=== PATIENT | female | born 1960 | race Caucasian/White ===

== ENCOUNTER 2016-08-15 19:23 | Emergency (ER) | payer OTHER ==
[~2016-08-15] VITALS: Ht 157.5 cm; Wt 83.9 kg
[~2016-08-15 19:23] MED LIST: EPIPEN0.3 MG/0.1 IM; PREDNISONE10 M2 PO; PROBIOTIC1 EACH PO
--- NOTE | 2016-08-15 19:40 | ED CARDIAC/CP/PALPITATIONS ---
History of Present Illness General Chief Complaint: Chest Pain Stated Complaint: PT IS HAVING CHEST PAIN ,HEART IS RACING Source: patient Exam Limitations: no limitations Vital Signs & Intake/Output Vital Signs & Intake/Output Vital Signs Date Time Temp Pulse Resp B/P Pulse O2 O2 Flow FiO2 Ox Delivery Rate 08/153 97.1 74 16 86/68 98 Room Air 08/15 2216 77 16 97/67 97 Room Air 08/159 78 107/60 08/155 80 165/76 08/15 2050 80 16 165/76 08/15 2014 Room Air 08/15 1944 97.9 96 20 104/68 97 Room Air Allergies Coded Allergies: Fish Containing Products (Severe, HIVES AND THROAT SWELLING 08/15/16) Penicillins (Intermediate, HIVES 08/15/16) codeine (Intermediate, HIVES 08/15/16) shellfish derived (HIVES AND THROAT SWELLING 08/15/16) Reconcile Medications Clobetasol Propionate 0.05 % CREAM..G. 1 RAQUEL TOP BID HANDS (Reported) apply to affected area(s) Epinephrine (Epipen 2-Francisco) 0.3 MG/0.3 ML AUTO.INJCT 0.3 MG IM AD PRN ALLERGIC REACTION (Reported) Omeprazole 40 MG CAPSULE. 1 CAP PO DAILY GI (Reported) Triage Nurses Notes Reviewed? yes Onset: Gradual Duration: hour(s): Timing: recent history Location: central Radiation: no radiation Activities at Onset: none Prior Chest Pain/Card Workup: patient with similar symptoms on 2 other occasions Nitro Today/Relief: no nitro taken today Aspirin Today: 325 mg x 1, provided at home Associated Symptoms: patient felt flushing and slight dizziness HPI: 56-year-old woman in prior good health presents with palpitations, chest pressure, mild dizziness, flushing, rash on her chest intermittently since 9:00 this morning. She states that she sometimes feels her hands and feet become cold and numb. She notes that she had 2 similar episodes previously which self resolved. She notes that at its worse, her discomfort was 5 out of 10. Upon arrival to the emergency department, "it's basically gone." Past History Travel History Traveled to [place] past 21 day No Medical History Any Pertinent Medical History? 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 No Review of Systems Review of Systems Constitutional: Reports: no symptoms. EENTM: Reports: no symptoms. Respiratory: Reports: no symptoms. Cardiovascular: Reports: no symptoms. GI: Reports: no symptoms. Genitourinary: Reports: no symptoms. Musculoskeletal: Reports: no symptoms. Skin: Reports: no symptoms. Neurological/Psychological: Reports: no symptoms. Hematologic/Endocrine: Reports: no symptoms. Immunologic/Allergic: Reports: no symptoms. All Other Systems: Reviewed and Negative Physical Exam Physical Exam General Appearance: well developed/nourished, mild distress Head: atraumatic, normal appearance Eyes: Bilateral: normal appearance. Ears, Nose, Throat: normal pharynx, normal ENT inspection Neck: normal inspection, supple, full range of motion Respiratory: normal breath sounds, chest non-tender, no respiratory distress, quiet respiration, lungs clear Cardiovascular: regular rate/rhythm Gastrointestinal: normal bowel sounds, soft, non-tender, no organomegaly Rectal: normal exam, normal rectal tone, heme negative stool Back: normal inspection, normal range of motion Extremities: normal inspection, normal capillary refill, normal range of motion, no edema Neurologic/Psych: no motor/sensory deficits, awake, alert, oriented x 3 Reflexes: 1+: bicep (R), bicep (L), knee (R), knee (L). Core Measures ACS in differential dx? Yes ASA ordered for poss ACS? Yes-ordered Severe Sepsis Present: No Septic Shock Present: No Progress Differential Diagnosis: AMI, CHF/pulm edema, hypovolemia, musculoskeletal pain, pneumonia, pneumothorax, pulmonary embolism Plan of Care: Orders Procedure Date/time Status Nothing by Mouth 08/16 B Active TROPONIN LEVEL 08/16 0600 Active EKG 08/16 0600 Active CBC WITHOUT DIFFERENTIAL 08/16 0500 Active PARTIAL THROMBOPLASTIN TIME 08/16 0315 Active TROPONIN LEVEL 08/16 0100 Active EKG 08/16 0100 Active Pathway - chart 08/15 2221 Active Lab Add-on Test 08/15 2221 Active URINALYSIS 08/15 2221 Active Code Status 08/15 2221 Active EKG 08/15 2208 Active Patient Data 08/15 2129 Active Patient Data 08/16 2127 Active Admit to inpatient 08/15 2116 Active Add-on Test (ER Only) 08/15 2041 Active PARTIAL THROMBOPLASTIN TIME 08/15 1942 Complete PROTHROMBIN TIME 08/15 194 Complete PHOSPHORUS 08/15 194 Complete MAGNESIUM 08/15 1942 Complete LIPID PANEL 08/15 194 Complete D-DIMER 08/15 192 Complete TROPONIN LEVEL 08/15 1924 Complete LIPASE 08/15 1924 Complete HEPATIC FUNCTION PANEL 08/15 1924 Complete CBC WITHOUT DIFFERENTIAL 08/15 1924 Complete BASIC METABOLIC PANEL 08/15 1924 Complete AMYLASE 08/15 1924 Complete EKG 08/15 1924 Active Saline Lock 08/15 UNK Active Pathway - chart 08/15 UNK Active House Staff 08/15 UNK Active ACS Core Measures 08/15 UNK Active Weight 08/15 UNK Active VTE Mechanical Prophylaxis 08/15 UNK Active Vital Signs 08/15 UNK Active Intake & Output 08/15 UNK Active CASE MANAGEMENT CONSULT 08/15 UNK Active ECHOCARDIOGRAM 08/15 UNK Active Current Medications Sig/Meme Start time Last Medication Dose Stop Time Status Admin Aspirin 325 MG DAILY 08/16 1000 UNVr (Aspirin) Clopidogrel Bisulfate 75 MG DAILY 08/16 1000 CANr (Plavix) Metoprolol Tartrate 12.5 MG BID 08/16 1000 UNVr (Lopressor) Multivitamins 1 TAB DAILY 08/16 1000 UNVr (Theragran Vitamins) Atorvastatin Calcium 80 MG 1700 08/15 2230 UNVr (Lipitor) Acetaminophen 650 MG Q6P PRN 08/15 2215 AC (Tylenol) Morphine Sulfate 2 MG Q4P PRN 08/15 2215 AC (Morphine) Laboratory Tests 08/15/161942: Anion Gap 11, Estimated GFR > 60, BUN/Creatinine Ratio 26.3 H, Glucose 138 H, Calcium 10.2, Phosphorus 3.5, Magnesium 1.8, Total Bilirubin 0.6, Direct Bilirubin 0.3, AST 40 H, ALT 45, Alkaline Phosphatase 57, Troponin I 4.17 *H, Total Protein 6.7, Albumin 4.0, Triglycerides 98, Cholesterol 192, LDL Cholesterol, Calc 134 H, HDL Cholesterol 39 L, Cholesterol/HDL Ratio 5 H, Amylase 46, Lipase 149, PT 11.5, INR 1.10, APTT 28, D-Dimer 927 H, CBC w Diff NO MAN DIFF REQ, RBC 5.71 H, MCV 67.6 L, MCH 21.7 L, RDW 16.9 H, MPV 9.6, Gran % 73.4, Lymphocytes % 22.6, Monocytes % 2.7, Eosinophils % 1.2, Basophils % 0.1, Absolute Granulocytes 9.0 H, Absolute Lymphocytes 2.8, Absolute Monocytes 0.3, Absolute Eosinophils 0.2, Absolute Basophils 0, PUBS MCHC 32.0 L Initial ED EKG: q waves II, III, F... no acute changes from prior.... nsr, low voltages noted. Repeat EKG: changed Departure Departure Disposition: STILL A PATIENT Condition: Stable Clinical Impression Primary Impression: Myocardial infarction Referrals: PURA COLLINS MD (PCP/Family) Departure Forms: Customer Survey General Discharge Information Admission Note Spoke With: PURA COLLINS MD Documentation of Exam: Documentation of any treatments & extenuating circumstances including Concerns Regarding Discharge (functional status, medication knowledge or non-compliance, living conditions, etc.) that warrant an admission rather than observation: 08/15/16, 20:50... Patient with myocardial infarction. Discussed with Dr. Wills. Given that she has an unchanged EKG and her symptoms are well controlled, patient will be admitted to the intensive care unit with supportive measures to arrange for possible catheterization tomorrow. aspirin/bblocker/nitrates/heparin given. 08/15/16, 21:12... discussed with dr. collins who accepts patient to his service. 08/15/16, 22:57... follow up ekg with 1mm st elevation in v5, v6... discussed with dr. wills... pt to be transferred to dr. velez's service at [facility] to labor relations worker... pt signed consent form. Accepted via y-acc. Critical Care Note Critical Care Note Critical Care Time: 30-74 min
[2016-08-15 19:48] LABS: ABSOLUTE BASOPHIL COUNT 0 /CUMM (0.0-0.2); ABSOLUTE EOSINOPHIL COUNT 0.2 /CUMM (0.0-0.7); ABSOLUTE LYMPH COUNT 2.8 /CUMM (1.2-3.4); ABSOLUTE MONOCYTE COUNT 0.3 /CUMM (0.10-0.60); BASOPHIL % 0.1 % (0.0-2.0); EOSINOPHIL % 1.2 % (0-5); HEMATOCRIT 38.6 % (37-47); MEAN CORPUSCULAR HGB 21.7 PG (27.0-31.0); MEAN CORPUSCULAR VOLUME 67.6 FL (81.0-99.0); MEAN PLATELET VOLUME 9.6 FL (7.4-10.4); PLATELET COUNT 272 /CUMM (130-400); RBC DISTRIBUTION WIDTH 16.9 % (11.5-14.5); RED BLOOD CELL CT 5.71 /CUMM (4.20-5.40); WHITE BLOOD CELL COUNT 12.3 /CUMM (4.8-10.8)
[2016-08-15 19:49] LABS: GRANULOCYTE % 73.4 % (42.2-75.2)
[2016-08-15] MEDS ORDERED: EPIPEN 2-P0.3 MG/0.3 IM (19:54)
[2016-08-15] MEDS ORDERED: OMEPRAZOLE40 M1 PO (19:54)
[2016-08-15] MEDS ORDERED: CLOBETASOL PROP15 GM TOP (19:55)
[2016-08-15 20:52] LABS: PT 11.5 SEC (9.4-12.5); PTT 28 SEC (25-37)
--- NOTE | 2016-08-15 21:53 | RADIOLOGY REPORT ---
EXAMINATION: XR PORTABLE CHEST CLINICAL INFORMATION: Chest pain COMPARISON: None TECHNIQUE: Portable AP view of the chest was obtained. FINDINGS: Lungs are symmetrically expanded and clear with exception of minimal discoid atelectasis in the inferior lingula. There is no pulmonary edema, consolidation, pneumothorax or pleural effusion. Cardiac silhouette is top normal in size. The mediastinal and hilar contours are normal. Incidentally noted are foci of calcium deposition (likely calcium hydroxyapatite) overlying each humeral head. IMPRESSION: No acute cardiopulmonary abnormality.
[2016-08-15 22:53] VITALS: BP 86/68
--- NOTE | 2016-08-15 22:59 | Event Note ---
Event Note Event Note: After completing the history taking and physical examination. Admitting team ordered EKG for further evaluation, EKG came back with ST segment elevation in the anterior lateral lead([id number]) was notified and after discussion due to the patient's symptoms and positive family history and risk factor patient will be transferred from the emergency department for cardiac catheterization. p.t Keept NPO, high-dose statin was given.
== END 2016-08-15 23:12 | disposition short-term general hospital (02) ==
LOC: ERH 19:23 → CANBEDREQ 22:59 → ERH 23:12
PROVIDERS: Pediatrics
DX: I40.0 Infective myocarditis (principal); R07.89 Other chest pain
CPT/HCPCS: 93005; 93010; 96374; 96375; 99291; J1644

== ENCOUNTER 2016-08-20 00:23 | Observation (INO) | payer OTHER ==
[~2016-08-20] VITALS: Ht 157.5 cm; Wt 83.9 kg
[~2016-08-20 00:23] MED LIST changes: +CLOBETASOL PROP15 GM TOP; +EPIPEN 2-P0.3 MG/0.3 IM; +OMEPRAZOLE40 M1 PO
--- NOTE | 2016-08-20 01:05 | NUR ---
DR LEBRON INTO EVAL PT. PT STATES SHE TOOK 650 MG TYLENOL AT 2200. SOME RELIEF OF HEADACHE
--- NOTE | 2016-08-20 01:05 | ED CARDIAC/CP/PALPITATIONS ---
History of Present Illness General Chief Complaint: General Adult Stated Complaint: " I HAD SD THURSDAY AND JUST DON'T FEEL RIGHT" Source: patient, family, old records Exam Limitations: no limitations Vital Signs & Intake/Output Vital Signs & Intake/Output Vital Signs Date Time Temp Pulse Resp B/P Pulse O2 O2 Flow FiO2 Ox Delivery Rate 08/21 311 96.8 62 18 137/84 98 Room Air 08/20 0039 7.6 69 16 167/92 98 Allergies Coded Allergies: Fish Containing Products (Severe, HIVES AND THROAT SWELLING 08/15/16) Penicillins (Intermediate, HIVES 08/15/16) codeine (Intermediate, HIVES 08/15/16) shellfish derived (HIVES AND THROAT SWELLING 08/15/16) Reconcile Medications Clobetasol Propionate 0.05 % CREAM..G. 1 RAQUEL TOP BID HANDS (Reported) apply to affected area(s) Epinephrine (Epipen 2-Francisco) 0.3 MG/0.3 ML AUTO.INJCT 0.3 MG IM AD PRN ALLERGIC REACTION (Reported) Omeprazole 40 MG CAPSULE. 1 CAP PO DAILY GI (Reported) Triage Note: PT TO ED C/O FEELING NAUSEUS, HEADACHE, SHAKING AND DIZZY SINCE 2199. WOKE UP FROM SLEEP WITH THESE SYMPTOMS. BP AT HOME 196/91. BP IN TRIAGE 167/92. [place] ON THURSDAY, TRANSFERRED TO [facility]. HAD CARDIAC CATH, NO BLOCKAGES FOUND, PER PATIENT. DENIES URI S/S. DENIES CHEST PAIN, DENIES SOB, DENIES DIAPHORESIS. ALSO C/O FEELING ITCHY AND HAVING COLD FEET Triage Nurses Notes Reviewed? yes HPI: Patient woke from sleep feeling nauseous, lightheaded, chills as well as a headache. Patient was seen here in the emergency department on Thursday for chest pain and she had ST elevation in anterior the as well as a troponin of 4.2. Patient was transferred to the clinical laboratory aides teacher where she had no obstructing lesions. Patient was diagnosed with stress cardiomyopathy. Patient was discharged on Coreg and aspirin and was told to follow-up with her primary care doctor for initiation of an JORGE ALBERTO inhibitor. Patient saw Dr. Mane today who told her to follow with Dr. Wellington about the JORGE ALBERTO inhibitor. Past History Travel History Traveled to [place] past 21 day No Medical History Any Pertinent Medical History? 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 No Review of Systems Review of Systems Constitutional: Reports: see HPI, chills. EENTM: Reports: no symptoms. Respiratory: Reports: no symptoms. Cardiovascular: Reports: no symptoms. GI: Reports: see HPI, nausea. Genitourinary: Reports: no symptoms. Musculoskeletal: Reports: no symptoms. Skin: Reports: no symptoms. Neurological/Psychological: Reports: see HPI. Hematologic/Endocrine: Reports: no symptoms. Immunologic/Allergic: Reports: no symptoms. All Other Systems: Reviewed and Negative Physical Exam Physical Exam General Appearance: well developed/nourished, alert, awake, anxious Head: atraumatic, normal appearance Eyes: Bilateral: PERRL, EOMI. Ears, Nose, Throat: normal pharynx, normal ENT inspection Neck: normal inspection, supple, full range of motion Respiratory: normal breath sounds, chest non-tender, no respiratory distress, lungs clear Cardiovascular: regular rate/rhythm, normal peripheral pulses Gastrointestinal: normal bowel sounds, soft, non-tender, no organomegaly Back: normal inspection, normal range of motion Extremities: normal inspection, normal capillary refill, normal range of motion, no edema Neurologic/Psych: no motor/sensory deficits, awake, alert, oriented x 3, normal gait, normal mood/affect Skin: intact, normal color, warm/dry Core Measures ACS in differential dx? Yes Severe Sepsis Present: No Septic Shock Present: No Progress Differential Diagnosis: AMI, cholecystitis, hyperthyroid, myocarditis, pericarditis, pulmonary embolism Plan of Care: Orders Procedure Date/time Status EKG 08/20 1300 Active EKG 08/[address] in observation 08/20 0307 Active TROPONIN LEVEL 08/20 0059 Complete COMPREHENSIVE METABOLIC PANEL 08/20 0059 Complete CBC WITHOUT DIFFERENTIAL 08/20 0059 Complete EKG 08/20 0027 Active Laboratory Tests 08/20/16 0110: Anion Gap 11, Estimated GFR > 60, BUN/Creatinine Ratio 25.7 H, Glucose 106 H, Calcium 10.5 H, Total Bilirubin 0.8, AST 36, ALT 54 H, Alkaline Phosphatase 66 , Troponin I 1.06 *H, Total Protein 7.1, Albumin 4.2, Globulin 2.9, Albumin/ Globulin Ratio 1.4, CBC w Diff NO MAN DIFF REQ, RBC 5.29, MCV 67.1 L, MCH 21.6 L, RDW 15.9 H, MPV 9.5, Gran % 62.8, Lymphocytes % 24.3, Monocytes % 7.7, Eosinophils % 5.1 H, Basophils % 0.1, Absolute Granulocytes 5.4, Absolute Lymphocytes 2.1, Absolute Monocytes 0.7 H, Absolute Eosinophils 0.4, Absolute Basophils 0, PUBS MCHC 32.1 L Initial ED EKG: NSR, nonspecific ST T wave chg, ekg NOW SHOWS t-WAVE INVERSIONS IN ANTERIOR LEADS HOWEVER SHE NO LONGER HAS THE st ELEVATION THAT SHE HAD ON fridays ekg. Prior EKG: changed Comments: Patient is feeling much better after IV Zofran and IV fluids. Patient states that once she was discharged from the hospital on Thursday her troponin was 0.29. Discussed with Dr. Valdes. He recommends telemetry to trend her troponin. The troponin may be elevated secondary to T[place] cardiomyopathy. Her troponin was trending down and is now going back up. Departure Departure Disposition: STILL A PATIENT Condition: Guarded Clinical Impression Primary Impression: Elevated troponin Secondary Impressions: Acute electrocardiogram changes Referrals: PURA MANE MD (PCP/Family) Departure Forms: Customer Survey General Discharge Information Observation Note Spoke With: PURA MANE MD Physician Advisor Notified: VI JUNG,SIGIFREDO [address] Patient In: Non-ED OBS Care Area Rationale for Observation: My rational for observation is as follows [telemetry monitoring, serial enzymes, cardiology evaluation and consultation]. Critical Care Note Critical Care Note Critical Care Time: mins: (45 MIN)
--- NOTE | 2016-08-20 01:05 | NUR ---
PT TO ED C/O FEELING NAUSEUS, HEADACHE, SHAKING AND DIZZY SINCE 2199. WOKE UP FROM SLEEP WITH THESE SYMPTOMS. BP AT HOME 196/91. BP IN TRIAGE 167/92. [place] ON THURSDAY, TRANSFERRED TO [facility]. HAD CARDIAC CATH, NO BLOCKAGES FOUND, PER PATIENT. DENIES URI S/S. DENIES CHEST PAIN, DENIES SOB, DENIES DIAPHORESIS. ALSO C/O FEELING ITCHY AND HAVING COLD FEET
[2016-08-20 01:29] LABS: ABSOLUTE GRANULOCYTE CT 5.4 /CUMM (1.4-6.5)
[2016-08-20 01:34] LABS: ABSOLUTE BASOPHIL COUNT 0 /CUMM (0.0-0.2); ABSOLUTE EOSINOPHIL COUNT 0.4 /CUMM (0.0-0.7); ABSOLUTE LYMPH COUNT 2.1 /CUMM (1.2-3.4); ABSOLUTE MONOCYTE COUNT 0.7 /CUMM (0.10-0.60); BASOPHIL % 0.1 % (0.0-2.0); EOSINOPHIL % 5.1 % (0-5); GRANULOCYTE % 62.8 % (42.2-75.2); HEMATOCRIT 35.5 % (37-47); MEAN CORPUSCULAR HGB 21.6 PG (27.0-31.0); MEAN CORPUSCULAR HGB CONC 32.1 G/DL (33.0-37.0); MEAN CORPUSCULAR VOLUME 67.1 FL (81.0-99.0); MEAN PLATELET VOLUME 9.5 FL (7.4-10.4); PLATELET COUNT 255 /CUMM (130-400); RBC DISTRIBUTION WIDTH 15.9 % (11.5-14.5); RED BLOOD CELL CT 5.29 /CUMM (4.20-5.40); WHITE BLOOD CELL COUNT 8.6 /CUMM (4.8-10.8)
--- NOTE | 2016-08-20 01:35 | NUR ---
IV ACCESS ESTABLISHED LH 20G. 1L NS INFUSING. PT MEDICATED WITH 4 MG ZOFRAN IV ORDERED
--- NOTE | 2016-08-20 02:20 | NUR ---
PT REPORTS FEELING BETTER AFTER ZOFRAN AND FLUID
--- NOTE | 2016-08-20 02:36 | NUR ---
CRITICAL TEST RESULTS [id number] J CARLOS TEE 56 F TESTS AND RESULTS: TROP 1.06 Results received and read back by: SCOTT WARD Results received date and time: 08/20/16 0236 The following provider was notified of the results, and read the results back: DR LEBRON Notified date and time: 08/20/16 at 0239
--- NOTE | 2016-08-20 03:42 | NUR ---
PT C/O NAUSEA WHEN LYING DOWN. IS SITTING AT EDGE OF STRECHER. MEDICATED WITH ADDITIONAL 4 MG ZOFRAN IV (8 MG TOTAL)
[2016-08-20] MEDS ORDERED: ASPIRIN81 M4 PO (04:38)
[2016-08-20] MEDS ORDERED: COREG3.125 MG PO (04:39)
[2016-08-20] MEDS ORDERED: TUMS200 MG PO (04:42)
[2016-08-20] MEDS ORDERED: MOTRIN IB200 M1 PO (04:43)
--- NOTE | 2016-08-20 05:36 | History & Physical ---
DANAY JUNG,SUNG 08/20/16 0536: General Information and HPI MD Statement: I have seen and personally examined J CARLOS TEE and documented this H&P. The patient is a 56 year old F who presented with a patient stated chief complaint of nausea, headache, shaking, dizziness with elevated blood pressure. Source of Information: patient Exam Limitations: no limitations History of Present Illness: 56-year-old woman with no past medical history seen for evaluation of nausea, headache, shaking, and dizziness waking her from sleep. Patient was recently seen in the [facility] ED on 08/15/16 after developing nausea, vomiting, diarrhea and generalized fatigue/malaise at home early in the morning. She persisted with these symptoms throughout the day and reported to the [facility] ED that evening for evaluation. EKG demonstrated normal sinus rhythm with Q waves in inferior leads and troponin of 4.17 during this evaluation for which patient was given aspirin, beta flaquita, nitrates and started on a heparin drip after discussion with Dr. Wellington and transferred to [facility] for cardiac catheterization. Cardiac catheterization during this inpatient hospital stay did not demonstrate any acute stenosis or blockage. Echocardiogram obtained demonstrated global hypokinesis possibly suggestive of takotsubo's cardiomyopathy. Troponin obtained on Thursday08/16/16 was reduced to 0.29. Patient was discharged to home on Thursday with resolution of her symptoms. Presently patient states that she went to bed around 10 PM in her normal state of health when she was awoken "20 minutes later" with symptoms of palpitations, claustrophobia/impending doom, nausea and mild chest discomfort without obvious pain. Patient took her blood pressure at home which was reportedly 196/91. For fear of further cardiac event she came to the [facility] ED for further evaluation. She reports resolution of her symptoms upon initial evaluation and currently has no complaints. Additionally she denies any blurred/double vision, dizziness/lightheadedness, headache, fever, chills, chest pain, palpitations, nausea, vomiting, diarrhea, constipation, urinary frequency/urgency/burning/pain, numbness/tingling. Allergies/Medications Allergies: Coded Allergies: Fish Containing Products (Severe, HIVES AND THROAT SWELLING 08/15/16) Penicillins (Intermediate, HIVES 08/15/16) codeine (Intermediate, HIVES 08/15/16) shellfish derived (HIVES AND THROAT SWELLING 08/15/16) Home Med list Aspirin (Aspirin*) 81 MG TAB.CHEW 1 TAB PO DAILY HEART (Reported) Calcium Carbonate (TUMS) 200 MG CALCIUM (500 MG) TAB.CHEW 2 TAB PO BID PRN HEARTBURN (Reported) Carvedilol (Coreg) 3.125 MG TABLET 1 TAB PO BID CHEST PAIN (Reported) Clobetasol Propionate 0.05 % CREAM..G. 1 RAQUEL TOP BID HANDS (Reported) apply to affected area(s) Epinephrine (Epipen 2-Francisco) 0.3 MG/0.3 ML AUTO.INJCT 0.3 MG IM AD PRN ALLERGIC REACTION (Reported) Ibuprofen (Motrin Ib) 200 MG TABLET 400 MG PO DAILY HEADCHE (Reported) Omeprazole 40 MG CAPSULE.DR 1 CAP PO DAILY GI (Reported) Past History Travel History Traveled to [place] past 21 day No Medical History Neurological: NONE EENT: NONE Cardiovascular: myocardial infarction Respiratory: NONE Gastrointestinal: NONE Hepatic: NONE Renal: NONE Musculoskeletal: disk herniation Psychiatric: NONE Endocrine: NONE Blood Disorders: NONE Cancer(s): NONE 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 Exam & Diagnostic Data Last 24 Hrs of Vital Signs/I&O Vital Signs Date Time Temp Pulse Resp B/P Pulse O2 O2 Flow FiO2 Ox Delivery Rate 08/20 0624 97.1 74 18 147/89 98 Room Air 08/20 0721 97.1 74 18 147/89 98 Room Air 08/20 0312 96.8 62 18 137/84 98 Room Air 08/20 0145 98 Room Air 08/20 0039 97.6 69 16 167/92 98 Intake & Output 08/20 0800 08/20 0000 08/19 1600 Intake Total 1180 Output Total Balance 1180 Intake, IV 1000 Intake, Oral 180 Patient 83.915 kg Weight Assessment/Plan Assessment: 56-year-old woman with recent myocardial infarction seen for evaluation of acute onset nausea, headache, shaking, dizziness and elevated blood pressure. Vital signs on initial evaluation were remarkable for temp 97.6, HR 69, RR 16, BP 177/92, O2 98% on room air. Physical examination demonstrated a middle age woman in no acute distress with a normal cardiopulmonary examination. Lab work was significant for WBC 8.6, Hgb/HCT 11.4/35.5, normal serum chemistries, troponin 1.06. EKG demonstrated normal sinus rhythm T-wave inversions in V1-V6 without any new ST segment changes. Given patient's recent myocardial infarction and every onset of symptoms suggestive of a cardiac event patient is to be admitted to the cardio telemetry floor for further evaluation. Recent myocardial infarction Patient recently diagnosed with an ST elevation myocardial infarction on 08/15/16 with elevated troponin to 4.17. Cardiac catheterization did not identify any obvious lesion, however echocardiogram obtained demonstrated global hypokinesis suggestive of takotsubo's cardiomyopathy. Patient was discharged from [facility] on Thursday to home, troponin on Thursday was reportedly 0.29. Patient was to follow-up with her PCP after discharge in order to to be evaluated for JORGE ALBERTO inhibitor therapy. Troponin was found to be elevated to 1.06 on initial evaluation. -Telemetry -Trend Troponin/EKG -Aspirin 81 mg by mouth daily -Zofran 4 mg IV every 6 hours as needed for nausea -Carvedilol 3.125 by mouth twice a day -Benadryl 25 mg by mouth daily as needed for rash -Cardiology consult Pain plan-acetaminophen/ibuprofen Diet-heart healthy diet DVT prophylaxis-Lovenox CODE STATUS-full code As Ranked By This Provider Problem List: 1. Elevated troponin Core Measures/Miscellaneous Acute Coronary Syndrome ACS Diagnosis: No Cerebrovascular Accident CVA/TIA Diagnosis: No Congestive Heart Failure CHF Diagnosis: No Venous Thromboembolism VTE Risk Factors: Acute medical illness, Age > 40 No [facility] VTE prophylaxis d/t: No contraindications No VTE Pharm Prophylaxis d/t: No contraindications VTE Diagnosis: No VTE Type: NONE VTE Confirmed by (Test): NONE Severe Sepsis Severe Sepsis Present: No Septic Shock Septic Shock Present: No Miscellaneous Documentation Attending Case Discussed With: PURA HADLEY MD Primary Care Physician: PURA HADLEY MD Patient sees these Specialists Jake Wellington MD Level of Patient Care: Telemetry Consults Needed: Consulting Specialty: Cardiology TAMIKO BAIN 08/20/16 0537: Resident Review Statement Resident Statement: examined this patient, discussed with pharmacy intern, agreed with pharmacy intern, amended to note Other Findings: 56 year old lady with pmh of allergy, Thalasemia minor?, Ex-smoker came to the hospital with chief complaint of nausea and not feeling well for couple of hours. Patient was seen in ED on Thursday with chief complaint of chest pain and diaphoresis which at that time was sent to [facility] for immediate catheterization for ST elevation DC. At [place] the cardiac catheterization showed no CAD, elevated LVEDP, echocardiogram showed EF of 45-50%(documents are provided by the patient) .compatible with picutre of Tkasubo.rheumatologic and PHEO related tests are pending patient was feeling better and discharge after today's visit low-dose Coreg and aspirin she was told to see her PCP for evaluation for starting on JORGE ALBERTO inhibitor as well. today before coming to the hospital , she felt nauseous,dizziness with headache and one episode of diarrhea with elevated blood pressure 196/91.she received IV Zofran in the hospital and she is feeling better at the time of H&P. she denies chest pain, pain anywhere else, urinary symptoms, fever or chills. Patient developed widespread rash after the cardiac cath according to her its non-itchy . Vital signs in the hospital was notable for mild elevated blood pressure ( initially) troponin was 1.06 , according to the records the last troponin was less than 0.5. physical exam was notable for widepread rash, chest heart and abdomen were unremarkable EKG showed widespread inverted T's in precordial leads, MS 67, QTC 435 Low MCV and high RBC count is compatible with thalassemia (minor) assessment and plan #Positive troponins with insignificant cardiac catheterization/recent echo -EKG and troponin 3 -Cardiology consult with Dr. Valdes/Eliz -Continue aspirin and Coreg -23 hour observation -Evaluate for adding JORGE ALBERTO inhibitor regimen by maths tutor -obtain the results of the pending labs from patient/[place] #Nausea/abdominal discomfort/headache/rash -Continue omeprazole and Tums -Tylenol and Motrin for headache -Benadryl when necessary for rash and itching Full code, DVT prophylaxis is mechanical and Lovenox, heart healthy diet
[2016-08-20 07:21] VITALS: BP 147/89
--- NOTE | 2016-08-20 07:25 | NUR ---
ASSUMED CARE AT THIS TIME, PT AWAKE AND ALERT, DENIES PAIN AT THIS TIME. PT MEDCIATED PER ORDER WITH PO PRILOSEC. PT SITTING UP AND EATING AT THIS TIME. NSR ON MONITOR WITH HR 74
--- NOTE | 2016-08-20 08:43 | Cons- Cardiology ---
See Addendum ELIA BARR MD 08/20/16 0832: General Information and HPI Consulting Request Date of Consult: 08/20/16 Requested By: PURA HADLEY MD Reason for Consult: POSITIVE TROPONIN Source of Information: patient, old records Exam Limitations: no limitations History of Present Illness: This is a 56-year-old lady with no previous medical history not on any chronic medications that presented to the emergency room yesterday evening with a chief complaint of "I feel queasy in my stomach, have nausea, have headaches and feel lightheaded". She was initially seen at [facility] emergency room on August 15 of this year with a positive troponin of greater than 4 the plan was to admit her however a follow-up EKG showed minor ST elevations in the anterior and lateral leads. She was subsequently transferred to [facility] where a cardiac catheterization was pursued which showed clean coronaries, echo demonstrated an EF of 40-45%; she was deemed to have stress cardiomyopathy. She was discharged on aspirin and a beta flaquita. Rheumatological and pheochromocytoma workup is still pending. She was noted to have normal thyroid function. She presented to the ER yesterday evening with again vague gastrointestinal symptoms however no chest pain, shortness of breath, jaw pain, pain radiating to the back or to either arms. She was again noted to have positive troponin of greater than 1 with T-wave inversions in leads V2 through V6. At present has received Zofran with alleviation of her nausea and remains chest pain-free. She denies any psychosocial stressors or emotional distress which might have brought on these events. Allergies/Medications Allergies: Coded Allergies: Fish Containing Products (Severe, HIVES AND THROAT SWELLING 08/15/16) Penicillins (Intermediate, HIVES 08/15/16) codeine (Intermediate, HIVES 08/15/16) shellfish derived (HIVES AND THROAT SWELLING 08/15/16) Home Med List: Aspirin (Aspirin*) 81 MG TAB.CHEW 1 TAB PO DAILY HEART (Reported) Calcium Carbonate (TUMS) 200 MG CALCIUM (500 MG) TAB.CHEW 2 TAB PO BID PRN HEARTBURN (Reported) Carvedilol (Coreg) 3.125 MG TABLET 1 TAB PO BID CHEST PAIN (Reported) Clobetasol Propionate 0.05 % CREAM..G. 1 RAQUEL TOP BID HANDS (Reported) apply to affected area(s) Epinephrine (Epipen 2-Francisco) 0.3 MG/0.3 ML AUTO.INJCT 0.3 MG IM AD PRN ALLERGIC REACTION (Reported) Ibuprofen (Motrin Ib) 200 MG TABLET 400 MG PO DAILY HEADCHE (Reported) Omeprazole 40 MG CAPSULE. 1 CAP PO DAILY GI (Reported) Review of Systems Review of Systems Constitutional: Reports: see HPI. 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 Home Services at Home: None Primary Language: Andorran Smoking Status: Former Smoker ETOH Use: occasional use Illicit Drug Use: denies illicit drug use ECHO Results (as available) Date of last Echo 08/16/16 EF% 45 Exam & Diagnostic Data Vital Signs and I&O Vital Signs Date Time Temp Pulse Resp B/P Pulse O2 O2 Flow FiO2 Ox Delivery Rate 08/20 0624 97.1 74 18 147/89 98 Room Air 08/20 0721 97.1 74 18 147/89 98 Room Air 08/20 0312 96.8 62 18 137/84 98 Room Air 08/20 0145 98 Room Air 08/20 0039 97.6 69 16 167/92 98 Intake & Output 08/20 1600 08/20 0800 08/20 0000 08/19 1600 08/19 0800 08/19 0000 Intake Total 1180 Output Total Balance 1180 Intake, IV 1000 Intake, Oral 180 Patient 185 lb Weight Physical Exam General Appearance: well developed/nourished, no apparent distress, alert, awake , comfortable Eyes: Bilateral: normal appearance, PERRL, EOMI. Ears, Nose, Throat: normal pharynx, normal ENT inspection Neck: normal inspection, supple, full range of motion Respiratory: normal breath sounds, chest non-tender, no respiratory distress Cardiovascular: regular rate/rhythm, systolic murmur (2/6 RUSB) Gastrointestinal: normal bowel sounds, soft, non-tender, no organomegaly Back: normal inspection, normal range of motion Labs/Hu Results: Laboratory Tests 08/20 08/20 08/20 0708 0700 0110 Chemistry Sodium (137 - 145 mmol/L) 143 Potassium (3.5 - 5.1 mmol/L) 4.0 Chloride (98 - 107 mmol/L) 108 H Carbon Dioxide (22 - 30 mmol/L) 24 Anion Gap (5 - 16) 11 BUN (7 - 17 mg/dL) 18 H Creatinine (0.5 - 1.0 mg/dL) 0.7 Estimated GFR (>60 ml/min) > 60 BUN/Creatinine Ratio (7 - 25 %) 25.7 H Glucose (65 - 99 mg/dL) 106 H Calcium (8.4 - 10.2 mg/dL) 10.5 H Total Bilirubin (0.2 - 1.3 mg/dL) 0.8 AST (14 - 36 U/L) 36 ALT (9 - 52 U/L) 54 H Alkaline Phosphatase (<127 U/L) 66 Troponin I (< 0.11 ng/ml) Pending Cancelled 1.06 *H Total Protein (6.3 - 8.2 g/dL) 7.1 Albumin (3.5 - 5.0 g/dL) 4.2 Globulin (1.9 - 4.2 gm/dL) 2.9 Albumin/Globulin Ratio (1.1 - 2.2 %) 1.4 Hematology CBC w Diff NO MAN DIFF REQ WBC (4.8 - 10.8 /CUMM) 8.6 RBC (4.20 - 5.40 /CUMM) 5.29 Hgb (12.0 - 16.0 G/DL) 11.4 L Hct (37 - 47 %) 35.5 L MCV (81.0 - 99.0 FL) 67.1 L MCH (27.0 - 31.0 PG) 21.6 L RDW (11.5 - 14.5 %) 15.9 H Plt Count (130 - 400 /CUMM) 255 MPV (7.4 - 10.4 FL) 9.5 Gran % (42.2 - 75.2 %) 62.8 Lymphocytes % (20.5 - 51.1 %) 24.3 Monocytes % (1.7 - 9.3 %) 7.7 Eosinophils % (0 - 5 %) 5.1 H Basophils % (0.0 - 2.0 %) 0.1 Absolute Granulocytes (1.4 - 6.5 /CUMM) 5.4 Absolute Lymphocytes (1.2 - 3.4 /CUMM) 2.1 Absolute Monocytes (0.10 - 0.60 /CUMM) 0.7 H Absolute Eosinophils (0.0 - 0.7 /CUMM) 0.4 Absolute Basophils (0.0 - 0.2 /CUMM) 0 PUBS MCHC (33.0 - 37.0 G/DL) 32.1 L Diagnostic Data EKG Results Rate 70, OK 168, QRS 102, QTC 454 Sinus rhythm, T-wave inversions in leads V3 through V6 Previous EKG 08/15/2016 ST elevations in leads V4 V5 and V6 Assessment/Plan Assessment/Plan In summary, 56-year-old lady with recent admission at [facility] at [facility] who underwent a cardiac catheterization with clean coronaries, with an echo demonstrating global hypokinesis with ejection fraction of 40-45%; deemed to have Takotsubos/stress-induced cardiomyopathy. Presenting again with a troponin of 1.06 and lateral lead T-wave inversions in leads V2 through V6. At present she remains chest pain-free and comfortable. She had rheumatological workup which was done at [facility] and also pheochromocytoma workup which was pending at time of discharge. She states that her troponin at [facility] at time of discharge was 0.29. Assessment- 1. Positive troponin, EKG changes in lateral leads 2. Recent clean cardiac cath, demonstrating Takotsubos cardiomyopathy 3. Global hypokinesis with an EF of 40-45% Plan- 1. Trend troponins until they peak and EKGs 2. Continue aspirin 81 mg daily, Coreg 3.125 mg twice a day 3. Start lisinopril 2.5 mg daily, the idea is to stop this once her EF has normalized 4. Repeat echocardiogram, given her recent rise in troponin of 1.06 ( considering her troponin was 0.29 at discharge from [facility]); it would be good to assess her EF if it has further deteriorated over the course of last couple of days 5. Obtain medical records from [facility]- official cath report, echocardiogram, pending lab work which includes rheumatological workup and pheochromocytoma workup 6. Check thyroid studies and parathyroid hormone level given her persistent elevation of calcium 7. No heparin drip for now Problem List: 1. Myocardial infarction 2. Elevated troponin 3. Acute electrocardiogram changes Copies To: JOMAR JUNG,PURA Consult Acknowledgment - Thank you for your consult request. CYNTHIA JUNG,BORIS Navarro 08/20/161930: Assessment/Plan Assessment/Plan Attending addendum The patient was seen and examined by me and the case was reviewed and discussed with the housestaff. I agree with the plan as outlined above. Afer discussion with the patient and her family, it is apparent that the 24 hour urine studies were never completed in [place]. I would suggest that we perform baseline 24 urine collections while here includeing VMA, metanephrines, Catechols, 5HIAA, Histamine, Cortisol, Dopamine, etc. Maintain the patient on the telemetry for now If she has any recurrence of her symptom complex while here, please check her BP during the episode Consult Acknowledgment - Thank you for your consult request.
--- NOTE | 2016-08-20 08:48 | NUR ---
CRITICAL TEST RESULTS [id number] J CARLOS TEE 56 F TESTS AND RESULTS: TROPONIN 0.77 Results received and read back by: MELISSA CROWLEY Results received date and time: 08/20/16 0849 The following provider was notified of the results, and read the results back: DR DORADO Notified date and time: 08/20/16 at 0849
--- NOTE | 2016-08-20 09:06 | NUR ---
PHARMACY CALLED FOR AM MEDS. THIS NURSE ATTEMPTOED TO PADE HOUSE STAFF X 3 AT THIS TIME. CONTINUE TO WAIT ON RETURN CALL
--- NOTE | 2016-08-20 10:09 | NUR ---
PT MEDICATED PER ORDER. SITTING UP ON STRETCHER DENIES CP AT THIS TIME. PT AWARE THAT AT THIS TIME THERE ARE STILL NO BEDS UP STAIRS AND THAT SHE WILL REMAINS IN ER. PT STATES THAT " ITS OK I DONT MIND". PT TO HAVE REPEAT BLOOD WORK AND EKG AT 1300
[2016-08-20 10:12] VITALS: BP 145/81
--- NOTE | 2016-08-20 11:16 | NUR ---
PT REMAINS ALERT AND ORIENTED AND PAIN FREE AT THIS TIME. FANILY AT BEDSIDE
--- NOTE | 2016-08-20 11:33 | NUR ---
PT SITTING UP EATING LUNCH AT THIS TIME
--- NOTE | 2016-08-20 11:53 | NUR ---
bed assignment 180-02
--- NOTE | 2016-08-20 11:58 | NUR ---
REPORT TO EVAN
--- NOTE | 2016-08-20 12:12 | NUR ---
PT STATES THAT SHE HAS NOT HAD THE FLU SHOT
[2016-08-20 12:45] VITALS: BP 150/90
--- NOTE | 2016-08-20 13:07 | Admission Certification ---
Admission Certification Certification Statement - As attending physician, I certify that at the time of - admission, based on clinical presentation, severity of - symptoms, need for further diagnostic testing and - therapeutic interventions, and risk of adverse outcomes - without in-hospital treatment, in my clinical assessment, - this patient requires an acute hospital stay for a minimum - of two nights or longer. I have also considered psychsocial - factors such as support system, advanced age, financial - issues, cognitive issues, and failed out-patient treatments, - past re-admission history, safety of patient, and lack of - compliance as applicable. Specific rationale supporting this admission is: Elevated troponin in a patient with recently diagnosed with ischemic cardiomyopathy
--- NOTE | 2016-08-20 13:09 | PN- Att Addend ---
Attending Addendum Attending Brief Note The 6-year-old white female recently discharged from [facility] after having a cardiac catheterization showing ischemic cardiomyopathy and no coronary artery disease the patient had workup an echocardiogram. I saw her in follow-up feeling okay later on this evening she started having some nonspecific symptoms not feeling well comes to the emergency room with some subtle EKG changes and an elevated troponin again cardiology suggested patient be kept for observation Laboratory Tests 08/20 08/20 08/20 1300 0708 0700 Chemistry Troponin I (< 0.11 ng/ml) Cancelled 0.77 *H Cancelled TSH (0.270 - 4.200 uIU/mL) 1.600 Free T4 (0.64 - 1.79 ng/dL) 1.07 Free T3 (2.71 - 6.16 pg/mL) 3.5 08/20 0110 Chemistry Sodium (137 - 145 mmol/L) 143 Potassium (3.5 - 5.1 mmol/L) 4.0 Chloride (98 - 107 mmol/L) 108 H Carbon Dioxide (22 - 30 mmol/L) 24 Anion Gap (5 - 16) 11 BUN (7 - 17 mg/dL) 18 H Creatinine (0.5 - 1.0 mg/dL) 0.7 Estimated GFR (>60 ml/min) > 60 BUN/Creatinine Ratio (7 - 25 %) 25.7 H Glucose (65 - 99 mg/dL) 106 H Calcium (8.4 - 10.2 mg/dL) 10.5 H Total Bilirubin (0.2 - 1.3 mg/dL) 0.8 AST (14 - 36 U/L) 36 ALT (9 - 52 U/L) 54 H Alkaline Phosphatase (<127 U/L) 66 Troponin I (< 0.11 ng/ml) 1.06 *H Total Protein (6.3 - 8.2 g/dL) 7.1 Albumin (3.5 - 5.0 g/dL) 4.2 Globulin (1.9 - 4.2 gm/dL) 2.9 Albumin/Globulin Ratio (1.1 - 2.2 %) 1.4 PTH Intact (13.8 - 85 pg/ml) 43.0 Hematology CBC w Diff NO MAN DIFF REQ WBC (4.8 - 10.8 /CUMM) 8.6 RBC (4.20 - 5.40 /CUMM) 5.29 Hgb (12.0 - 16.0 G/DL) 11.4 L Hct (37 - 47 %) 35.5 L MCV (81.0 - 99.0 FL) 67.1 L MCH (27.0 - 31.0 PG) 21.6 L RDW (11.5 - 14.5 %) 15.9 H Plt Count (130 - 400 /CUMM) 255 MPV (7.4 - 10.4 FL) 9.5 Gran % (42.2 - 75.2 %) 62.8 Lymphocytes % (20.5 - 51.1 %) 24.3 Monocytes % (1.7 - 9.3 %) 7.7 Eosinophils % (0 - 5 %) 5.1 H Basophils % (0.0 - 2.0 %) 0.1 Absolute Granulocytes (1.4 - 6.5 /CUMM) 5.4 Absolute Lymphocytes (1.2 - 3.4 /CUMM) 2.1 Absolute Monocytes (0.10 - 0.60 /CUMM) 0.7 H Absolute Eosinophils (0.0 - 0.7 /CUMM) 0.4 Absolute Basophils (0.0 - 0.2 /CUMM) 0 PUBS MCHC (33.0 - 37.0 G/DL) 32.1 L
--- NOTE | 2016-08-20 15:06 | Patient Discharge Instructions ---
Discharge Instructions General Discharge Information You were seen/treated for: Chest pain Special Instructions: - Please follow up with PCP and [employer] in 1 week - Please complete the urine test and follow up for the results. Diet Continue normal diet: Yes Activity Full Activity/No Limits: Yes Acute Coronary Syndrome Inclusion Criteria At DC or during hospital stay patient has or had the following: ACS DIAGNOSIS No Discharge Core Measures Meds if any: Prescribed or Continued at Discharge Meds if any: NOT Prescribed or Continued at Discharge Congestive Heart Failure Inclusion Criteria At DC or during hospital stay patient has or had the following: CHF DIAGNOSIS No Discharge Core Measures Meds if any: Prescribed or Continued at Discharge Meds if any: NOT Prescribed or Continued at Discharge Cerebrovascular accident Inclusion Criteria At DC or during hospital stay patient has or had the following: CVA/TIA Diagnosis No Discharge Core Measures Meds if any: Prescribed or Continued at Discharge Meds if any: NOT Prescribed or Continued at Discharge Venous thromboembolism Inclusion Criteria VTE Diagnosis No VTE Type NONE VTE Confirmed by (Test) NONE Discharge Core Measures - Per Current guidelines, there needs to be overlap - treatment for the first 5 days of Warfarin therapy. - If discharged on Warfarin prior to 5 days of - overlap therapy, the patient will need to be - assessed for post discharge needs including - *Post discharge parental anticoagulation - *Warfarin and/or parental anticoagulation education - *Follow up date to check INR post discharge At least 5 days overlap therapy as Inpatient No Meds if any: Prescribed or Continued at Discharge Note: Overlap Therapy is Warfarin and Anticoagulant Meds if any: NOT Prescribed or Continued at Discharge
[2016-08-20 16:48] VITALS: BP 112/74
--- NOTE | 2016-08-20 22:51 | NUR ---
PT HAD SEVERAL EPISODES OF BRADYCARDIA TO APPROX 48. PT ASYMPTOMATIC, VSS. RETAIL MARKETING MANAGER ALVAREZ MADE AWARE.
[2016-08-20 23:46] VITALS: BP 100/50
--- NOTE | 2016-08-21 06:44 | PN- Housestaff ---
Subjective Follow-up For: upset stomach,chest pressure, palpitations Tele-Events Since Last Visit: SB-SR 46-32 Subjective: Pt was seen this morning, no complains overnight. Plan to get 24-hour urine test once approved by Dr. Mcdermott, might need 2X24hr as some tests require additives while some doesnt require additives. Consider changing status to full admission to complete the test. Rheum and pheo workup at [facility] still pending. Pt will try to follow up with the doctor at [facility] to enquire the test results, as electronic med recs still show labs as pending. She has not been eating much due to fear of upset stomach. She has right arm pain since the cath, tender like a bruise (although does not appear bruised), worse with certain arm movements. SHe was told that her arteries had spasms during the cath. Motrin helps with the pain. Rates the pain as 80/10 on movements, and 5/10 at rest. Review of Systems Constitutional: Reports: see HPI. Objective Last 24 Hrs of Vital Signs/I&O Vital Signs Date Time Temp Pulse Resp B/P Pulse O2 O2 Flow FiO2 Ox Delivery Rate 08/20 2346 97.4 57 18 100/50 94 Room Air 08/20 2043 58 158/90 08/20 1648 97.8 53 19 112/74 96 Room Air 08/20 1245 97.9 68 18 150/90 96 Room Air 08/20 1012 97.0 70 16 145/81 97 Room Air 08/20 1008 97.0 145/81 /08 1008 97.2 70 16 145/81 Intake & Output 08/21 1600 08/21 0800 08/21 0000 Intake Total 200 1000 Output Total 400 0 Balance -200 1000 Intake, IV 0 Intake, Oral 200 1000 Number 0 Bowel Movements Output, Urine 400 0 Physical Exam General Appearance: Alert, Oriented X3, Cooperative, No Acute Distress Skin: No Significant Lesion Cardiovascular: Regular Rate, Normal S1, Normal S2, No Murmurs, Gallops, Rubs Lungs: Clear to Auscultation, Normal Air Movement Abdomen: Normal Bowel Sounds, Soft, No Tenderness Neurological: Strength at 5/5 X4 Ext, Normal Tone Extremities: No Edema Current Medications: Current Medications Sig/Meme Start time Last Medication Dose Route Stop Time Status Admin Acetaminophen 650 MG Q6P PRN 08/20 0515 AC 08/20 PO 1419 Aspirin 0 .STK-MED ONE 08/20 1001 DC PO Aspirin 81 MG DAILY 08/20 1000 AC 08/20 PO 1008 Carvedilol 3.125 MG BID 08/20 1000 AC 08/20 PO 2043 Diphenhydramine HCl 25 MG DAILY PRN 08/20 0530 AC PO Enoxaparin Sodium 0 .STK-MED ONE 08/20 1003 DC SC Enoxaparin Sodium 40 MG DAILY 08/20 1000 AC 08/20 SC 1008 Ibuprofen 0 .STK-MED ONE 08/20 1001 DC PO Ibuprofen 400 MG BID 08/20 1000 AC 08/20 PO 2036 Influenza Virus 0.5 ML ONCE ONE 08/20 1944 DC 08/20 Vaccine IM 08/20 Lisinopril 2.5 MG DAILY 08/20 1000 AC 08/20 PO 1008 Nicotine 21 MG DAILY 08/20 2031 AC 08/21 TOP 0601 Omeprazole 40 MG DAILY AC 08/20 0700 AC 08/21 PO 0601 Ondansetron HCl 4 MG Q6P PRN 08/20 0530 AC IV Assessment/Plan Assessment: 56-year-old female with 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 She underwent catheterization the week [facility] at [facility] without evidence of stenosis. Echo showed global hypokinesis with ejection fraction of 40-45%; deemed to have Takotsubos/stress-induced cardiomyopathy, although pt denies any recent/new stressors in her life. Admitted for troponin of 1.06, that has trended down to 0.52, with T wave inversions V1-V4(was 0.29 when discharged from [facility]). # Episodic upset stomach, chest pressure, palpitations, and high blood pressure associated with positive troponin (max 1.06) - Need to rule out pheochromocytoma (labile BP, episodic flushing/feeling unwell ) * Continue aspirin 81 mg daily, Coreg 3.125 mg twice a day * Started lisinopril 2.5 mg daily, stop once her EF has normalized * Follow repeath echo * Get med recs from [facility] regarding Rheum and pheo workup * Consider changing obs status to full admission as might need 2 X 24 hour urine. Check VMA, metanephrines, Catechols, 5HIAA, Histamine, Cortisol, Dopamine * Continue telemetry monitoring * Check BP during episodes * Appreciate cardio consult (Dr. Wellington/Keisha) * Continue omeprazole and Tums, zofran for nausea , Benadryl when necessary for rash and itching, # Right arm pain s/p cath * Continue Tylenol and Motrin Diet: heart healthy diet DVT prophylaxis is mechanical and Lovenox Full code Problem List: 1. Elevated troponin Pain Ratin Pain Location: right arm Pain Goal: Pain 7 or less Pain Plan: ibuprofen Tomorrow's Labs & Rationales: none Consulting Request: Consulting Specialty: Cardiology
[2016-08-21 08:10] LABS: ABSOLUTE BASOPHIL COUNT 0 /CUMM (0.0-0.2); ABSOLUTE EOSINOPHIL COUNT 0.3 /CUMM (0.0-0.7); ABSOLUTE GRANULOCYTE CT 4.4 /CUMM (1.4-6.5); ABSOLUTE LYMPH COUNT 2.2 /CUMM (1.2-3.4); ABSOLUTE MONOCYTE COUNT 0.5 /CUMM (0.10-0.60); BASOPHIL % 0.5 % (0.0-2.0); EOSINOPHIL % 3.5 % (0-5); GRANULOCYTE % 59.6 % (42.2-75.2); HEMATOCRIT 34.3 % (37-47); MEAN CORPUSCULAR HGB 21.2 PG (27.0-31.0); MEAN CORPUSCULAR HGB CONC 31.4 G/DL (33.0-37.0); MEAN PLATELET VOLUME 9.8 FL (7.4-10.4); PLATELET COUNT 232 /CUMM (130-400); RBC DISTRIBUTION WIDTH 15.9 % (11.5-14.5); RED BLOOD CELL CT 5.07 /CUMM (4.20-5.40); WHITE BLOOD CELL COUNT 7.4 /CUMM (4.8-10.8)
[2016-08-21 08:28] VITALS: BP 138/82
--- NOTE | 2016-08-21 08:37 | PN- Att Addend ---
Attending Addendum Attending Brief Note Doing better No significant complaints She did say that 2 AM she did wake up with a queasy feeling. At that time her heart rate apparently was around 40s to 50s patient appeared to be in sinus bradycardia she was not noted to be snoring at that time per her nurse. No other complaints really to go home Review of Systems: Eyes no blurred or double vision Ears no deafness or ringing Nose and throat no recurrent sinusitis Lungs per history of present illness Heart per history of present illness Abdomen no nausea vomiting Musculoskeletal occasional muscle and joint pains Psych no anxiety or depression Neuro without recurrent headache or seizures Endocrine no heat or cold intolerance Intake & Output 08/21 1600 08/21 0800 08/21 0000 Intake Total 200 1000 Output Total 400 0 Balance -200 1000 Intake, IV 0 Intake, Oral 200 1000 Number 0 Bowel Movements Output, Urine 400 0 Current Medications Sig/Meme Start time Last Medication Dose Route Stop Time Status Admin Acetaminophen 650 MG Q6P PRN 08/20 0515 AC 08/20 PO 1419 Aspirin 0 .STK-MED ONE 08/20 1001 DC PO Aspirin 81 MG DAILY 08/20 1000 AC 08/20 PO 1008 Carvedilol 3.125 MG BID 08/20 1000 AC 08/20 PO 2043 Diphenhydramine HCl 25 MG DAILY PRN 08/20 0530 AC PO Enoxaparin Sodium 0 .STK-MED ONE 08/20 1003 DC SC Enoxaparin Sodium 40 MG DAILY 08/20 1000 AC 08/20 SC 1008 Ibuprofen 0 .STK-MED ONE 08/20 1001 DC PO Ibuprofen 400 MG BID 08/20 1000 AC 08/20 PO 2036 Influenza Virus 0.5 ML ONCE ONE 08/20 1944 DC 08/20 Vaccine IM 08/20 Lisinopril 2.5 MG DAILY 08/20 1000 AC 08/20 PO 1008 Nicotine 21 MG DAILY 08/20 203 AC 08/21 TOP 0601 Omeprazole 40 MG DAILY AC 08/20 0700 AC 08/21 PO 0601 Ondansetron HCl 4 MG Q6P PRN 08/20 0530 AC IV Laboratory Tests 08/21 08/20 08/20 08/20 08/20 0645 1405 1300 0708 0700 Chemistry Sodium (137 - 145 mmol/L) 142 Potassium (3.5 - 5.1 mmol/L) 4.4 Chloride (98 - 107 mmol/L) 108 H Carbon Dioxide (22 - 30 mmol/L) 28 Anion Gap (5 - 16) 6 BUN (7 - 17 mg/dL) 15 Creatinine (0.5 - 1.0 mg/dL) 0.7 Estimated GFR (>60 ml/min) > 60 BUN/Creatinine Ratio (7 - 25 %) 21.4 Phosphorus (2.5 - 4.5 mg/dL) 4.3 Magnesium (1.6 - 2.3 mg/dL) 2.0 Troponin I (< 0.11 ng/ml) 0.52 *H Cancelled 0.77 *H Cancelled TSH (0.270 - 4.200 uIU/mL) 1.600 Free T4 (0.64 - 1.79 ng/dL) 1.07 Free T3 (2.71 - 6.16 pg/mL) 3.5 Hematology CBC w Diff Pending WBC Pending RBC Pending Hgb Pending Hct Pending MCV Pending MCH Pending RDW Pending Plt Count Pending MPV Pending PUBS MCHC Pending 08/20 0110 Chemistry Sodium (137 - 145 mmol/L) 143 Potassium (3.5 - 5.1 mmol/L) 4.0 Chloride (98 - 107 mmol/L) 108 H Carbon Dioxide (22 - 30 mmol/L) 24 Anion Gap (5 - 16) 11 BUN (7 - 17 mg/dL) 18 H Creatinine (0.5 - 1.0 mg/dL) 0.7 Estimated GFR (>60 ml/min) > 60 BUN/Creatinine Ratio (7 - 25 %) 25.7 H Glucose (65 - 99 mg/dL) 106 H Calcium (8.4 - 10.2 mg/dL) 10.5 H Total Bilirubin (0.2 - 1.3 mg/dL) 0.8 AST (14 - 36 U/L) 36 ALT (9 - 52 U/L) 54 H Alkaline Phosphatase (<127 U/L) 66 Troponin I (< 0.11 ng/ml) 1.06 *H Total Protein (6.3 - 8.2 g/dL) 7.1 Albumin (3.5 - 5.0 g/dL) 4.2 Globulin (1.9 - 4.2 gm/dL) 2.9 Albumin/Globulin Ratio (1.1 - 2.2 %) 1.4 PTH Intact (13.8 - 85 pg/ml) 43.0 Hematology CBC w Diff NO MAN DIFF REQ WBC (4.8 - 10.8 /CUMM) 8.6 RBC (4.20 - 5.40 /CUMM) 5.29 Hgb (12.0 - 16.0 G/DL) 11.4 L Hct (37 - 47 %) 35.5 L MCV (81.0 - 99.0 FL) 67.1 L MCH (27.0 - 31.0 PG) 21.6 L RDW (11.5 - 14.5 %) 15.9 H Plt Count (130 - 400 /CUMM) 255 MPV (7.4 - 10.4 FL) 9.5 Gran % (42.2 - 75.2 %) 62.8 Lymphocytes % (20.5 - 51.1 %) 24.3 Monocytes % (1.7 - 9.3 %) 7.7 Eosinophils % (0 - 5 %) 5.1 H Basophils % (0.0 - 2.0 %) 0.1 Absolute Granulocytes (1.4 - 6.5 /CUMM) 5.4 Absolute Lymphocytes (1.2 - 3.4 /CUMM) 2.1 Absolute Monocytes (0.10 - 0.60 /CUMM) 0.7 H Absolute Eosinophils (0.0 - 0.7 /CUMM) 0.4 Absolute Basophils (0.0 - 0.2 /CUMM) 0 PUBS MCHC (33.0 - 37.0 G/DL) 32.1 L Vital Signs Date Time Temp Pulse Resp B/P Pulse O2 O2 Flow FiO2 Ox Delivery Rate 08/20 2346 97.4 57 18 100/50 94 Room Air 08/20 2043 58 158/90 08/20 1648 97.8 53 19 112/74 96 Room Air / 1245 97.9 68 18 150/90 96 Room Air 08 1012 97.0 70 16 145/81 97 Room Air / 1008 97.0 145/81 03/ 1008 97.2 70 16 145/81 [place] [facility] reviewed Significant data reviewed from [facility] BUN/creatinine was normal cholesterol 178 Her CRP was elevated 8.47 troponin was 0.29 upon discharge her ferritin level was 365 Her TSH was 0.8 White count was 9 ESR was only 8 her CRP was hydrated reactive CRP Complement levels were normal Hemoglobin electrophoresis appeared to be normal Her activated clotting time appeared to be slightly elevated her tox screen was positive for benzos her HIV and hepatitis antibody and surface antigen negative her C1q complement component was 17 which was normal AN pending and metanephrines were not sent EF 40 and cardiac cath nil acute IMPRESSION This is a lady with recent admission to [facility] with cardiac catheterization with normal coronaries with echo demonstrating global hypokinesis with low ejection fraction 40-45% now here with mild chest discomfort with slightly elevated troponin now chest pain-free. Issues include Chest pain now seems to be resolving Bradycardia at night with some clinical symptoms Mild hypercalcemia needs workup SIg cardiomyopathy workup ongoing REC cont current meds Pt did get estefania and cardio is following- on coreg Check vit d and pth and debbie level Needs work up for metnephrine etc per cardio Ok to dc if stable soon pending cardiac eval
[2016-08-21 08:44] LABS: MEAN CORPUSCULAR VOLUME 67.7 FL (81.0-99.0)
[2016-08-21 09:40] VITALS: BP 138/82
[2016-08-21] MEDS ORDERED: LISINOPRIL2.5 M1 PO ×2 (14:54→15:09)
[2016-08-21] MEDS ORDERED: VITAMIN D1000 UNIT PO (15:09)
--- NOTE | 2016-08-21 16:15 | ECHOCARDIOGRAM REPORT ---
J CARLOS TEE Age: 56 : 1960 Gender: F Exam Date: 08/20/2016 19:29 Exam Location: [address] Ht (in): 62 Wt (lb): 185 BSA: 1.95 BP: 145 / 81 Ordering Physician: IRMA DISLA MD Referring Physician: Jake Wellington MD Technologist: Katlin De Jesus [facility] Room Number: 180-02 Indications: CHEST PAIN Rhythm: Sinus Technical Quality: Good FINDINGS Left Ventricle Normal size left ventricle. Hypokinetic septum. Normal left ventricular ejection fraction estimated at 55-60%. Right Ventricle Normal right ventricular size and function. Right Atrium Normal right atrial size. Left Atrium Left atrial size at the upper limits of normal. Mitral Valve Mitral valve thickened. Trace mitral regurgitation. Aortic Valve Trileaflet aortic valve. Diffuse thickening (sclerosis) of the aortic valve cusps without reduced excursion. No aortic stenosis. No aortic regurgitation. Tricuspid Valve Tricuspid valve not well visualized, grossly normal. Trace tricuspid regurgitation. Pulmonic Valve Pulmonic valve not well visualized, grossly normal. Trace to mild pulmonic regurgitation. Pericardium No pericardial effusion. Great Vessels Normal size aortic root and proximal ascending aorta. CONCLUSIONS 1. Miniimal to mild arotic sclerosis is present with no valvular stenosis or insufficiency 2. The mitral valve appears normal. Redundant chords are present with chordal JOYCELYN. There is no significant resting outflow tract obstruction. Minimal mitral insufficiency is present. 3. There is no significant pericardial fluid present. 4. The left ventricualr chamber size is normal with mild hypokinesia of the mid to distal septum and an ejection fraction of greater than 55%. 5. Minimal to mild tricuspid and pulmonic insufficiency are present wtih no evidence of pulmonary hypertension. 6. Mild left ventricular diastolic dysfunction is present. 7. A false tendon is present at the LV apex. Jake Wellington M.D. (Electronically Signed) Final Date: 21 August 2016 16:14 MEASUREMENTS (Male / Female) Normal Values 2D ECHO LV Diastolic Diameter PLAX 4.7 cm 4.2 - 5.9 / 3.9 - 5.3 cm LV Systolic Diameter PLAX 2.4 cm 2.1 - 4.0 cm LV Fractional Shortening PLAX 48.9 % 25 - 46 % LV Ejection Fraction 2D Teich 80.3 % IVS Diastolic Thickness 1.0 cm LVPW Diastolic Thickness 1.0 cm LV Relative Wall Thickness 0.4 RV Internal Dim ED PLAX 2.7 cm 1.9 - 3.8 cm LVOT Diameter 1.9 cm Aortic Root Diameter 3.2 cm LA Systolic Diameter LX 3.7 cm 3.0 - 4.0 / 2.7 - 3.8 cm LA Volume 41.0 cm 18 - 58 / 22 - 52 cm DOPPLER AV Peak Velocity 166.0 cm/s AV Peak Gradient 11.0 mmHg AV Mean Velocity 111.0 cm/s AV Mean Gradient 6.0 mmHg AV Velocity Time Integral 38.1 cm LVOT Peak Velocity 148.0 cm/s LVOT Peak Gradient 8.8 mmHg LVOT Mean Velocity 99.8 cm/s LVOT Mean Gradient 5.0 mmHg LVOT Velocity Time Integral 30.0 cm LVOT Stroke Volume 85.1 cm AV Area Cont Eq vti 2.2 cm AV Area Cont Eq pk 2.5 cm MV Peak Velocity 109.0 cm/s MV Peak Gradient 4.8 mmHg MV Mean Velocity 62.9 cm/s MV Mean Gradient 2.0 mmHg Mitral E Point Velocity 95.3 cm/s Mitral A Point Velocity 108.0 cm/s Mitral E to A Ratio 0.9 MV PHT Velocity 97.7 cm/s MV Deceleration Gaston 397.0 cm/s MV Pressure Half Time 73.8 ms MV Area PHT 3.0 cm MV Deceleration Time 243.0 ms TR Peak Velocity 206.0 cm/s TR Peak Gradient 17.0 mmHg Right Atrial Pressure 5.0 mmHg Pulmonary Artery Systolic Pressu 22.0 mmHg Right Ventricular Systolic Press 22.0 mmHg PV Peak Velocity 102.0 cm/s PV Peak Gradient 4.2 mmHg PV Mean Velocity 75.8 cm/s PV Mean Gradient 3.0 mmHg PV Velocity Time Integral 27.1 cm LV E' Lateral Velocity 5.4 cm/s Mitral E to LV E' Lateral Ratio 17.6 LV E' Septal Velocity 6.5 cm/s Mitral E to LV E' Septal Ratio 14.6
--- NOTE | 2016-08-21 20:12 | PN- Cardiology ---
Subjective Subjective: Stable with no new symptoms Objective Vital Signs and I&Os Vital Signs Date Time Temp Pulse Resp B/P Pulse O2 O2 Flow FiO2 Ox Delivery Rate 08/22 939 138/82 08/22 939 138/82 08/22 827 97.8 68 18 138/82 96 Room Air 08/20 2346 97.4 57 18 100/50 94 Room Air 08/20 2043 58 158/90 Intake & Output 08/21 1600 08/21 0808/21 0000 08/20 1600 08/20 0808/20 0000 Intake Total 720 200 698 301 8547 Output Total 400 0 Balance 720 -200 396 047 5783 Intake, IV 0 1000 Intake, Oral 720 200 600 400 180 Number 0 Bowel Movements Output, Urine 400 0 Patient 185 lb Weight Current Medications: Current Medications Sig/Meme Start time Last Medication Dose Route Stop Time Status Admin Acetaminophen 650 MG Q6P PRN 08/20 0515 DCD 08/20 PO 1419 Aspirin 81 MG DAILY 08/20 1000 DCD 08/21 PO 0940 Carvedilol 3.125 MG BID 08/20 1000 DCD 08/21 PO 0940 Diphenhydramine HCl 25 MG DAILY PRN 08/20 0530 DCD PO Enoxaparin Sodium 40 MG DAILY 08/20 1000 DCD 08/21 SC 0940 Ibuprofen 400 MG BID 08/20 1000 DCD 08/21 PO 0940 Lisinopril 2.5 MG DAILY 08/20 1000 DCD 08/21 PO 0940 Nicotine 21 MG DAILY 08/20 2031 DCD 08/21 TOP 0601 Omeprazole 40 MG DAILY AC 08/20 0700 DCD 08/21 PO 0601 Ondansetron HCl 4 MG Q6P PRN 08/20 0530 DCD IV Patient Medication 1 ED .STK-MED ONE 08/21 1346 KS Teaching ED 08/21 1347 Results Last 48 Hrs of Labs/Mics: Laboratory Tests 08/21/16 0645: Anion Gap 6, Estimated GFR > 60, BUN/Creatinine Ratio 21.4, Phosphorus 4.3, Magnesium 2.0, 25-OH Vitamin D Total 19.0 L, CBC w Diff NO MAN DIFF REQ, RBC 5.07, MCV 67.7 L, MCH 21.2 L, RDW 15.9 H, MPV 9.8, Gran % 59.6, Lymphocytes % 29.6, Monocytes % 6.8, Eosinophils % 3.5, Basophils % 0.5, Absolute Granulocytes 4.4, Absolute Lymphocytes 2.2, Absolute Monocytes 0.5, Absolute Eosinophils 0.3, Absolute Basophils 0, PUBS MCHC 31.4 L 08/21/16 0600: Angiotensin Convert Enz Pending 08/20/16 1405: Troponin I 0.52 *H 08/20/16 1300: Troponin I Cancelled 08/20/16 0708: Troponin I 0.77 *H, TSH 1.600, Free T4 1.07, Free T3 3.5 08/20/16 0700: Troponin I Cancelled 08/20/16 0110: Anion Gap 11, Estimated GFR > 60, BUN/Creatinine Ratio 25.7 H, Glucose 106 H, Calcium 10.5 H, Total Bilirubin 0.8, AST 36, ALT 54 H, Alkaline Phosphatase 66 , Troponin I 1.06 *H, Total Protein 7.1, Albumin 4.2, Globulin 2.9, Albumin/ Globulin Ratio 1.4, PTH Intact 43.0, CBC w Diff NO MAN DIFF REQ, RBC 5.29, MCV 67.1 L, MCH 21.6 L, RDW 15.9 H, MPV 9.5, Gran % 62.8, Lymphocytes % 24.3, Monocytes % 7.7, Eosinophils % 5.1 H, Basophils % 0.1, Absolute Granulocytes 5.4, Absolute Lymphocytes 2.1, Absolute Monocytes 0.7 H, Absolute Eosinophils 0.4, Absolute Basophils 0, PUBS MCHC 32.1 L Assessment/Plan Assessment/Plan Assessment- 1. Positive troponin, EKG changes in lateral leads 2. Recent clean cardiac cath, demonstrating Takotsubos cardiomyopathy 3. Global hypokinesis with an EF of 40-45% - improved to 55% on followup echo Recommendations: - COnsider discharge today - 24 hour urine collection as discussed as outpatient - Followup with me in 2 weeks - Continue telemetry? No
== END 2016-08-21 16:15 ==
LOC: ENRESERVDT → ENRESERVTM → ERH 00:23 → 1NO 03:07 → ERHI 03:07 → 1NO 03:07
PROVIDERS: Emergency Medicine; Radiology Diagnostic Radiology; ADMIT Internal Medicine
DX: I21.3 ST elevation (STEMI) myocardial infarction of unspecified site (principal); R79.89 Other specified abnormal findings of blood chemistry; R94.31 Abnormal electrocardiogram [ECG] [EKG]; Z79.82 Long term (current) use of aspirin; Z87.891 Personal history of nicotine dependence; Z23 Encounter for immunization
CPT/HCPCS: 2000; 82530; 83497; 36415; 82436; 84481; 93005; 93010; 93306; 96361; 96374; 99291; G0008; G0378; J1650; J2405; J3490; Q2036

== ENCOUNTER 2016-09-05 16:35 | Observation (INO) | payer OTHER ==
[~2016-09-05] VITALS: Ht 157.5 cm; Wt 81.6 kg
[~2016-09-05 16:35] MED LIST changes: +ASPIRIN81 M4 PO; +COREG3.125 MG PO; +LISINOPRIL2.5 M1 PO; +MOTRIN IB200 M1 PO; +TUMS200 MG PO; +VITAMIN D1000 UNIT PO
--- NOTE | 2016-09-05 16:45 | NUR ---
RECEIVED 56 YO FEMALE WITH HX OF MO X 2 THIS MONTH. CARDIAC CATH DONE AT [facility]: NEGATIVE. PT RELEASED FROM [facility] THIS THURSDAY AFTER BEING ADMITTED FOR HYPERTENSIVE CRISIS. PT REPORTS MILD CHEST PRESSURE, AIR FEELS THICK, POUNDING HEADACHE.
--- NOTE | 2016-09-05 16:45 | NUR ---
B/P IN TRIAGE 186/99 + 179/92
--- NOTE | 2016-09-05 16:58 | ED GENERAL ADULT ---
See Addendum History of Present Illness General Chief Complaint: General Adult Stated Complaint: "I JUST DONT FEEL GOOD" YUSUF/SOB Source: patient, family, old records Exam Limitations: no limitations Vital Signs & Intake/Output Vital Signs & Intake/Output Vital Signs Date Time Temp Pulse Resp B/P Pulse O2 O2 Flow FiO2 Ox Delivery Rate 09/05 1708 62 16 153/72 95 Room Air 09/05 1702 Room Air 09/05 1643 99.3 68 18 179/92 98 Room Air Allergies Coded Allergies: Fish Containing Products (Severe, HIVES AND THROAT SWELLING 08/15/16) Penicillins (Intermediate, HIVES 08/15/16) codeine (Intermediate, HIVES 08/15/16) shellfish derived (HIVES AND THROAT SWELLING 08/15/16) Reconcile Medications Acetaminophen 500 MG TABLET 2 TAB PO PRN PAIN (Reported) Aspirin (Aspirin*) 81 MG TAB.CHEW 1 TAB PO DAILY HEART (Reported) Calcium Carbonate (TUMS) 200 MG CALCIUM (500 MG) TAB.CHEW 2 TAB PO BID PRN HEARTBURN (Reported) Carvedilol (Coreg) 3.125 MG TABLET 1 TAB PO BID CHEST PAIN (Reported) Cholecalciferol (Vitamin D3) (Vitamin D) 1,000 UNIT TABLET 1 TAB PO DAILY Low vit d Check calcium and vitamin d level in 1 month Clobetasol Propionate 0.05 % CREAM..G. 1 RAQUEL TOP BID HANDS (Reported) apply to affected area(s) Epinephrine (Epipen 2-Francisco) 0.3 MG/0.3 ML AUTO.INJCT 0.3 MG IM AD PRN ALLERGIC REACTION (Reported) Isosorbide Mononitrate (Isosorbide Mononitrate ER) 30 MG TAB.ER.24H 1 TAB PO DAILY HEART (Reported) Lisinopril 2.5 MG TABLET 1 TAB PO DAILY Heart Omeprazole 40 MG CAPSULE. 1 CAP PO DAILY GI (Reported) Triage Note: RECEIVED 56 YO FEMALE WITH HX OF FL X 2 THIS MONTH. CARDIAC CATH DONE AT [facility]: NEGATIVE. PT RELEASED FROM [facility] THIS THURSDAY AFTER BEING ADMITTED FOR HYPERTENSIVE CRISIS. PT REPORTS MILD CHEST PRESSURE, AIR FEELS THICK, POUNDING HEADACHE. Triage Nurses Notes Reviewed? yes Onset: Abrupt Duration: day(s): (2), constant Timing: recent history Injury Environment: home Severity: moderate Severity Numbers: 6 No Modifying Factors: none Associated Symptoms: chest pain HPI: 56-year-old female with history of Stress cardiomyopathy, recent N STEMI requiring 2 admissions with a negative catheterization was admitted 6 days ago to [facility] for hypertensive crisis discharged 3 days ago presents to the ER today for evaluation of a 2 day history of chest heaviness described as a mild nonradiating pressure. She denies any dizziness light tenderness palpitations. She is also complaining of a generalized "pounding headache" no photophobia no nausea no vomiting no abdominal pain. The patient denies shortness of breath however she states the "air feels thick" upon breathing. She does not smoke. She's been compliant with all of her medications including Coreg twice a day lisinopril aspirin and the recently added isosorbide mononitrate. 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 Wellington . The patient reports history of similar chest pressure palpitations shortness of breath facial flushing in the past, and states that these episodes seem to occur more often after eating Isosorbide mononitrate 30 mg once a day aspirin 81 mg once a day Coreg 3.125 mg twice a day lisinopril 2.5 mg once a day omeprazole 40 mg (ANDREW DELGADO) Past History Travel History Traveled to [place] past 21 day No Medical History Any Pertinent Medical History? 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 No (ANDREW DELGADO) Review of Systems Review of Systems Constitutional: Reports: see HPI. All Other Systems: Reviewed and Negative Comments Review of systems: See HPI, All other systems negative. Constitutional, no chills no fever, no malaise HEENT:no sore throat no congestion, no ear pain Cardiovascular: chest pain , no palpitation , no orthopnea no ankle swelling Skin, no jaundice no rashes, no change in skin Respiratory: No dyspnea no cough no sputum no hemoptysis GI: No nausea no vomiting, no diarrhea, : No dysuria No hematuria, Muscle skeletal: No joint pain, no joint swelling, no back pain, no neck pain, Neurologic: No numbness no confusion, headache Psych: No stress Heme/endocrine: No bruising no bleeding Immunology: No lymphadenopathy, (ANDREW DELGADO) Physical Exam Physical Exam General Appearance: well developed/nourished, no apparent distress, alert, awake Comments: Well-developed well-nourished person in no acute distress HEENT: Normal EENT exam; PERRL, EOMI, no nystagmus. HEAD is atraumatic. moist mucous membranes. No papilledema Neck: Supple, normal range of motion Back: Nontender, no CVA tenderness. Full range of motion Cardiovascular: Regular rate and rhythms no murmurs rubs Respiratory: No respiratory distress. Patient speaking in full complete sentences. Breath sounds clear to auscultation bilaterally: NO W/R/R Abdomen: Soft, nontender nondistended, no appreciable organomegaly. Normal bowel sounds. No rebound/guarding, Extremity: No edema, full range of motion of extremities Neuro: Alert oriented x3, motor sensory normal, There were no obvious focal neurologic abnormalities. Skin: No appreciable rash on exposed skin, skin is warm and dry. Psych: Mood and affect is normal, memory and judgment is normal. Core Measures ACS in differential dx? Yes CVA/TIA Diagnosis: No Severe Sepsis Present: No Septic Shock Present: No (ANDREW DELGADO) Progress Differential Diagnoses I considered the following diagnoses in my evaluation of the patient: Hypertensive urgency versus emergency acute kidney injury acute FL unstable angina, carcinoid tumor Plan of Care: Orders Procedure Date/time Status Heart Healthy Diet 09/06 B Active TROPONIN LEVEL 09/06 0600 Active EKG 09/06 0600 Active TROPONIN LEVEL 09/[address] in observation 09/05 1926 Active Pathway - chart 09/05 1922 Active Code Status 09/05 1922 Active Patient Data 09/[address] ABD & PELVIS W IV CONTRAST 09/05 183 Active Telemetry/Tube Coater 09/05 1705 Active URINALYSIS 09/05 170 Complete TROPONIN LEVEL 09/05 170 Complete PROTHROMBIN TIME 09/05 170 Complete COMPREHENSIVE METABOLIC PANEL 09/05 170 Complete CBC WITHOUT DIFFERENTIAL 09/05 1705 Complete EKG 09/05 1645 Active House Staff 09/05 UNK Active VTE Mechanical Prophylaxis 09/05 UNK Active Vital Signs 09/05 UNK Active EKG 09/05 UNK Active Current Medications Sig/Meme Start time Last Medication Dose Stop Time Status Admin Carvedilol 3.125 MG BID 09/06 1000 UNVr (Coreg) Cholecalciferol 1,000 IU DAILY 09/06 1000 UNVr (Vitamin D) Isosorbide 30 MG DAILY 09/06 1000 UNVr Mononitrate (Imdur) Lisinopril 2.5 MG DAILY 09/06 1000 UNVr (Prinivil) Omeprazole 40 MG DAILY AC 09/06 07 UNVr (Prilosec) Aspirin 81 MG DAILY 09/05 1920 UNVr (Aspirin) Enoxaparin Sodium 40 MG DAILY 09/05 1917 UNVr (Lovenox) Laboratory Tests 09/05/16 1720: Urinalysis LIGHT H, Urine Color YEL, Urine Clarity CLEAR, Urine pH 6.5, Ur Specific [place] 1.025, Urine Protein 30 H, Urine Ketones NEG, Urine Nitrite NEG, Urine Bilirubin NEG, Urine Urobilinogen 0.2, Ur Leukocyte Esterase NEG, Ur Microscopic SEDIMENT EXAMINED, Urine RBC 1-3, Urine WBC 5-10 H, Ur Epithelial Cells FEW, Urine Bacteria FEW H, Urine Hemoglobin SMALL H, Urine Glucose NEG 09/05/16 1717: Anion Gap 10, Estimated GFR > 60, BUN/Creatinine Ratio 35.0 H, Glucose 104 H, Calcium 10.3 H, Total Bilirubin 0.6, AST 26, ALT 52, Alkaline Phosphatase 60, Troponin I < 0.01, Total Protein 7.3, Albumin 4.5, Globulin 2.8, Albumin/ Globulin Ratio 1.6, PT 11.8, INR 1.13, CBC w Diff NO MAN DIFF REQ, RBC 5.24, MCV 67.3 L, MCH 21.0 L, RDW 15.8 H, MPV 9.4, Gran % 55.3, Lymphocytes % 32.9, Monocytes % 6.0, Eosinophils % 5.4 H, Basophils % 0.4, Absolute Granulocytes 4.8, Absolute Lymphocytes 2.9, Absolute Monocytes 0.5, Absolute Eosinophils 0.5, Absolute Basophils 0, PUBS MCHC 31.1 L Labs ordered old records reviewed Case discussed with Dr. Lamb will place in obs 09/05/2016 6:35:48 PM case discussed with Dr. Valdes will consult I discussed with the patient and her family at length all of her lab results and they're in agreement with observation at this time patient was evaluated by Dr. omer- we will obtain a CAT scan of the abdomen pelvis with IV contrast to rule out carcinoid tumor given history of symptoms coming on after eating facial flushing palpitations pressure in her chest dyspnea (ANDREW DELGADO) Diagnostic Imaging: Viewed by Me: Radiology Read. Discussed w/RAD: Radiology Read. Radiology Impression: PATIENT: J CARLOS TEE PRESENT AGE: 56 PATIENT ACCOUNT NO: [id number] : 56 LOCATION: [facility] ORDERING PHYSICIAN: ANDREW HEATH SERVICE DATE: 09/05/16 EXAM TYPE: RAD - XRY-PORTABLE CHEST XRAY EXAMINATION: XR PORTABLE CHEST CLINICAL INFORMATION: Chest pain. Dyspnea. COMPARISON: Chest x-ray 08/15/2016. TECHNIQUE: Portable AP view of the chest was obtained. FINDINGS: The lungs are well- expanded and clear without focal airspace consolidation. No pleural effusions or pneumothoraces are identified. Cardiomediastinal contours are within normal limits. Soft tissues are unremarkable. No acute osseous abnormality is identified. Incidental note is made of focal calcifications along the superolateral aspect of the right humeral head. This finding is nonspecific but could reflect calcifications at the insertion site of a rotator cuff tendon in the setting of calcific tendinitis. IMPRESSION: No acute pulmonary process DICTATED BY: GEORGIA BENOIT MD DATE/TIME DICTATED:09/05/161735 LOTTERY SALES CLERK:EMILI DATE/TIME TRANSCRIBED:09/05/161735 CONFIDENTIAL, DO NOT COPY WITHOUT APPROPRIATE AUTHORIZATION. <Electronically signed in Other Vendor System> SIGNED BY: GEORGIA BENOIT MD 09/05/16 0610 Initial ED EKG: normal sinus at 70, nonspecific ST segment changes normal axis normal intervals Prior EKG: unchanged (08/20/16) (ANDREW DELGADO) Departure Departure Time of Disposition: 1821 Disposition: STILL A PATIENT Condition: Stable Clinical Impression Primary Impression: Chest pain Secondary Impressions: Hypertension Referrals: PURA HADLEY MD (PCP/Family) Departure Forms: Customer Survey General Discharge Information Observation Note Spoke With: RADHA JUNG,KELSEY Nails Physician Advisor Notified: EDWARD JUNG,ALBINA Hancock Place Patient In: Non-ED OBS Care Area Rationale for Observation: My rational for observation is as follows [patient with 3 previous admissions recently this past month for chest pain and STEMI elevated troponin hypertensive crisis premature discharge would BE medically harmful serial troponins telemetry monitoring cardiology consult. (ANDREW DELGADO) Departure Comments I've seen and personally examined the patient and I agree with the PAs evaluation. She has postprandial tachycardia and chest pain. CT scan is been ordered to exclude evidence of carcinoid syndrome (NYASIA OMER DO) Critical Care Note Critical Care Note Critical Care Time: non-applicable (ANDREW DELGADO)
--- NOTE | 2016-09-05 17:02 | NUR ---
PT TO ROOM19 BY KENIA ORLANDO PA TO BEDSIDE FOR PT EVAL.
[2016-09-05 17:32] LABS: ABSOLUTE BASOPHIL COUNT 0 /CUMM (0.0-0.2); ABSOLUTE EOSINOPHIL COUNT 0.5 /CUMM (0.0-0.7); ABSOLUTE GRANULOCYTE CT 4.8 /CUMM (1.4-6.5); ABSOLUTE LYMPH COUNT 2.9 /CUMM (1.2-3.4); ABSOLUTE MONOCYTE COUNT 0.5 /CUMM (0.10-0.60); BASOPHIL % 0.4 % (0.0-2.0); EOSINOPHIL % 5.4 % (0-5); GRANULOCYTE % 55.3 % (42.2-75.2); HEMATOCRIT 35.2 % (37-47); MEAN CORPUSCULAR HGB CONC 31.1 G/DL (33.0-37.0); MEAN CORPUSCULAR VOLUME 67.3 FL (81.0-99.0); MEAN PLATELET VOLUME 9.4 FL (7.4-10.4); PLATELET COUNT 275 /CUMM (130-400); RBC DISTRIBUTION WIDTH 15.8 % (11.5-14.5); RED BLOOD CELL CT 5.24 /CUMM (4.20-5.40); WHITE BLOOD CELL COUNT 8.7 /CUMM (4.8-10.8)
[2016-09-05 17:38] LABS: PT 11.8 SEC (9.4-12.5)
--- NOTE | 2016-09-05 17:40 | RADIOLOGY REPORT ---
EXAMINATION: XR PORTABLE CHEST CLINICAL INFORMATION: Chest pain. Dyspnea. COMPARISON: Chest x-ray 08/15/2016. TECHNIQUE: Portable AP view of the chest was obtained. FINDINGS: The lungs are well-expanded and clear without focal airspace consolidation. No pleural effusions or pneumothoraces are identified. Cardiomediastinal contours are within normal limits. Soft tissues are unremarkable. No acute osseous abnormality is identified. Incidental note is made of focal calcifications along the superolateral aspect of the right humeral head. This finding is nonspecific but could reflect calcifications at the insertion site of a rotator cuff tendon in the setting of calcific tendinitis. IMPRESSION: No acute pulmonary process
[2016-09-05] MEDS ORDERED: ACETAMINOPHEN500 M4 PO (17:45)
[2016-09-05] MEDS ORDERED: ISOSORBIDE MONO30 M1 PO (17:49)
--- NOTE | 2016-09-05 17:59 | NUR ---
KUMAR AQUINO TO BEDSIDE TO DISCUSS POC.
--- NOTE | 2016-09-05 18:54 | NUR ---
COREG HELD DUE TO HR 57, DR REDD NOTIFIED.
--- NOTE | 2016-09-05 19:10 | NUR ---
MD TRAMAINE AT BEDSIDE FOR PT EVAL.
--- NOTE | 2016-09-05 19:36 | History & Physical ---
General Information and [facility] MD Statement: I have seen and personally examined J CARLOS TEE and documented this H&P. The patient is a 56 year old F who presented with a patient stated chief complaint of [chest discomfort and pounding headache]. Source of Information: patient, old records Exam Limitations: no limitations History of Present Illness: This is 56 year old female with past medical history of beta thalassemia, stress cardiomyopathy (patient was evaluated a month ago for chest pain with EKG changes and elevated troponin this cardiac cath noted negative and reduce EF to 45-50% all suggestive of stress cardiomyopathy) was admitted to [facility] earlier this month for symptoms of on dizziness and was monitored on telemetry and ruled out for ACS, subsequently there was a concern for few because of patient's palpitation and cyclic hypertension but all blood work came out negative. Patient was recently seen at [facility] for sharp chest pain with EKG changes but subsequently her serial troponin, echo and stress tests all remain negative for any underlying coronary disease, now presents from home with chief complaint of chest discomfort started a day prior to admission. Patient was in her usual health up until yesterday afternoon when she started feeling as if she is not getting enough air. This morning she took her dose of Imdur and within an hour she started having pounding 6/10 frontal and occipital headache. She took 2 extra strength Tylenol without any significant relief. Around 3:30 in the afternoon patient started having chest discomfort felt like something is not right. She denied any associated diaphoresis, dizziness, lightheadedness, palpitation or chest pressure like pain. She also experiences intermittent bloating after meals for possible month with some epigastric discomfort without associated nausea or vomiting. She also complains of one- week history of urinary burning after completing urination associated with some hesitancy. She denies any fever, chills or any recent upper respiratory tract infection. Patient had total of 5 episodes of sudden onset abdominal pain followed by feeling upper body warmness associated with redness followed by itching in her palms and feet associated with palpitation and episode of diarrhea and diaphoresis. There was a concern about pheochromocytoma and carcinoid syndrome but her urine test for the same noted negative. Allergies/Medications Allergies: Coded Allergies: Fish Containing Products (Severe, HIVES AND THROAT SWELLING 08/15/16) Penicillins (Intermediate, HIVES 08/15/16) codeine (Intermediate, HIVES 08/15/16) shellfish derived (HIVES AND THROAT SWELLING 08/15/16) Home Med list Acetaminophen 500 MG TABLET 2 TAB PO PRN PAIN (Reported) Aspirin (Aspirin*) 81 MG TAB.CHEW 1 TAB PO DAILY HEART (Reported) Calcium Carbonate (TUMS) 200 MG CALCIUM (500 MG) TAB.CHEW 2 TAB PO BID PRN HEARTBURN (Reported) Carvedilol (Coreg) 3.125 MG TABLET 1 TAB PO BID CHEST PAIN (Reported) Cholecalciferol (Vitamin D3) (Vitamin D) 1,000 UNIT TABLET 1 TAB PO DAILY Low vit d Check calcium and vitamin d level in 1 month Clobetasol Propionate 0.05 % CREAM..G. 1 RAQUEL TOP BID HANDS (Reported) apply to affected area(s) Epinephrine (Epipen 2-Francisco) 0.3 MG/0.3 ML AUTO.INJCT 0.3 MG IM AD PRN ALLERGIC REACTION (Reported) Isosorbide Mononitrate (Isosorbide Mononitrate ER) 30 MG TAB.ER.24H 1 TAB PO DAILY HEART (Reported) Lisinopril 2.5 MG TABLET 1 TAB PO DAILY Heart Omeprazole 40 MG CAPSULE.DR 1 CAP PO DAILY GI (Reported) Compliance With Home Meds: FAIR Past History Travel History Traveled to [place] past 21 day No Medical History Neurological: NONE EENT: NONE Cardiovascular: hypertension, NSTEMI, Takotsubo cardiomyopathy Respiratory: NONE Gastrointestinal: GERD Hepatic: NONE Renal: NONE Musculoskeletal: disk herniation Psychiatric: NONE Endocrine: NONE Blood Disorders: beta thalassemia Cancer(s): NONE 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 FHx: diabetes mellitus FATHER FH: CAD (coronary artery disease) FHx: diabetes mellitus SISTER FH: thyroid cancer Psychosocial History Where do you live? Home Who Do You Live With? spouse Services at Home: None Primary Language: Tajik Smoking Status: Former Smoker (25 pack year hx) ETOH Use: denies use Illicit Drug Use: denies illicit drug use Living Will? no (vasovagal) Functional Ability ADLs Independent: dressing, eating, toileting, bathing. Ambulation: independent (he) IADLs Independent: shopping, housework, finances, food prep, telephone, transportation , medication admin. Review of Systems Review of Systems Constitutional: Denies: chills, fever, weakness. EENTM: Denies: visual changes (he is). Cardiovascular: Denies: chest pain, orthopena (9), palpitations, peripheral edema. Respiratory: Denies: cough, short of breath, wheezing. GI: Reports: constipation. Denies: abdominal pain, diarrhea, nausea, vomiting. Genitourinary: Reports: dysuria, hesitation. Musculoskeletal: Denies: back pain. Skin: Denies: rash. Neurological/Psychological: Denies: anxiety, confusion. Hematologic/Endocrine: Denies: bleeding. Exam & Diagnostic Data Last 24 Hrs of Vital Signs/I&O Vital Signs Date Time Temp Pulse Resp B/P Pulse O2 O2 Flow FiO2 Ox Delivery Rate 09/05 1708 62 16 153/72 95 Room Air 09/05 1702 Room Air 09/05 1643 99.3 68 18 179/92 98 Room Air Physical Exam General Appearance Alert, Oriented X3, Cooperative, No Acute Distress Skin No Rashes HEENT Atraumatic, PERRLA, EOMI, Mucous Membr. moist/pink Neck Supple, No JVD Lymphatic Cervical nl Cardiovascular Regular Rate, Normal S1, Normal S2, No Murmurs Lungs Clear to Auscultation, Normal Air Movement Abdomen Normal Bowel Sounds, Soft, No Tenderness Neurological Normal Speech, Normal Tone, Sensation Intact, Cranial Nerves 3-12 NL Extremities No Edema, Normal Pulses Vascular Normal Pulses, Pulses Symmetrical Last 24 Hrs of Labs/Hu: Laboratory Tests 09/05/16 1720: Urinalysis LIGHT H, Urine Color YEL, Urine Clarity CLEAR, Urine pH 6.5, Ur Specific [place] 1.025, Urine Protein 30 H, Urine Ketones NEG, Urine Nitrite NEG, Urine Bilirubin NEG, Urine Urobilinogen 0.2, Ur Leukocyte Esterase NEG, Ur Microscopic SEDIMENT EXAMINED, Urine RBC 1-3, Urine WBC 5-10 H, Ur Epithelial Cells FEW, Urine Bacteria FEW H, Urine Hemoglobin SMALL H, Urine Glucose NEG 09/05/16 1717: Anion Gap 10, Estimated GFR > 60, BUN/Creatinine Ratio 35.0 H, Glucose 104 H, Calcium 10.3 H, Total Bilirubin 0.6, AST 26, ALT 52, Alkaline Phosphatase 60, Troponin I < 0.01, Total Protein 7.3, Albumin 4.5, Globulin 2.8, Albumin/ Globulin Ratio 1.6, PT 11.8, INR 1.13, CBC w Diff NO MAN DIFF REQ, RBC 5.24, MCV 67.3 L, MCH 21.0 L, RDW 15.8 H, MPV 9.4, Gran % 55.3, Lymphocytes % 32.9, Monocytes % 6.0, Eosinophils % 5.4 H, Basophils % 0.4, Absolute Granulocytes 4.8, Absolute Lymphocytes 2.9, Absolute Monocytes 0.5, Absolute Eosinophils 0.5, Absolute Basophils 0, PUBS MCHC 31.1 L Diagnostic Data EKG Results Normal sinus rhythm at rate of 70 noted new T-wave inversion in anterior lead with previously noted unchanged lateral T-wave inversion, QTC 454 CXR Results No acute pulmonary process Assessment/Plan Assessment: This is 56 year old female with past medical history of beta thalassemia, stress cardiomyopathy (patient was evaluated a month ago for chest pain with EKG changes and elevated troponin this cardiac cath noted negative and reduce EF to 45-50% all suggestive of stress cardiomyopathy) low 80s with the Aleve Know she is mobilizing she went for admission to floor by think she. Presents from home with chief complaint of chest discomfort started a day prior to admission. 1. Acute chest pain -Admit to telemetry - Serial troponin and EKG to rule out underlying ACS - Cardiology consult in a.m. - Continue aspirin, beta flaquita - Hold off on echo as patient has a recent echo on 08/20/2016 which revealed normal EF 55-60% without any wall motion abnormality 2. Stress-induced cardiomyopathy - Continue aspirin, beta flaquita, Imdur 3. Hypertension - Continue beta flaquita and lisinopril 4. Hypercalcemia - Noted normal PTH and low calcium in recent lab - Likely secondary to Tums use 5. Flushing with abdominal pain, palpitatin - noted recent blood work up for likely Pheo including urinary metanephrines and catecholamines 9 which was negative and also patient had workup for possible carcinoid with -5 HIAA - ER ordered CT abdomen pelvis with IV contrast will follow the report 6. DVT prophylaxis On subcutaneous Lovenox 7. Full code. As Ranked By This Provider Problem List: 1. Chest pain 2. Hypertension Core Measures/Miscellaneous Acute Coronary Syndrome ACS Diagnosis: No Cerebrovascular Accident CVA/TIA Diagnosis: No Congestive Heart Failure CHF Diagnosis: No Venous Thromboembolism VTE Risk Factors: Age > 40, Obesity No [facility] prophylaxis d/t: No contraindications No VTE Pharm Prophylaxis d/t: No contraindications VTE Diagnosis: No VTE Type: NONE VTE Confirmed by (Test): NONE Severe Sepsis Severe Sepsis Present: No Septic Shock Septic Shock Present: No Miscellaneous Documentation Attending Case Discussed With: RADHA JUNG,KELSEY Nails Primary Care Physician: PURA HADLEY MD Patient sees these Specialists none Level of Patient Care: Telemetry Consults Needed: Consulting Specialty: Cardiology Consulting Physician: Dr. Valdes Reason for Consult: chest pain Resident Review Statement Resident Statement: examined this patient, discussed with commander internal affairs, agreed with commander internal affairs, reviewed EMR data (avail), reviewed images, amended to note
--- NOTE | 2016-09-05 20:12 | PN- Att Addend ---
Attending Addendum Attending Brief Note .This is 56 year old female with past medical history of beta thalassemia, stress cardiomyopathy (patient was evaluated a month ago for chest pain with EKG changes and elevated troponin this cardiac cath noted negative and reduce EF to 45-50% all suggestive of stress cardiomyopathy) was admitted to [facility] earlier this month for symptoms of on dizziness and was monitored on telemetry and ruled out for ACS, subsequently there was a concern for few because of patient's palpitation and cyclic hypertension but all blood work came out negative. Patient was recently seen at [facility] for sharp chest pain with EKG changes but subsequently her serial troponin, echo and stress tests all remain negative for any underlying coronary disease, now presents from home with chief complaint of chest discomfort started a day prior to admission. Patient was in her usual health up until yesterday afternoon when she started feeling as if she is not getting enough air. This morning she took her dose of Imdur and within an hour she started having pounding 6/10 frontal and occipital headache. She took 2 extra strength Tylenol without any significant relief. Around 3:30 in the afternoon patient started having chest discomfort felt like something is not right. She denied any associated diaphoresis, dizziness, lightheadedness, palpitation or chest pressure like pain. She also experiences intermittent bloating after meals for possible month with some epigastric discomfort without associated nausea or vomiting. She also complains of one-week history of urinary burning after completing urination associated with some hesitancy. She denies any fever, chills or any recent upper respiratory tract infection. Patient had total of 5 episodes of sudden onset abdominal pain followed by feeling upper body warmness associated with redness followed by itching in her palms and feet associated with palpitation and episode of diarrhea and diaphoresis. There was a concern about pheochromocytoma and carcinoid syndrome but her urine test for the same noted negative. Allergies/Medications Allergies: Coded Allergies: Fish Containing Products (Severe, HIVES AND THROAT SWELLING 08/15/16) Penicillins (Intermediate, HIVES 08/15/16) codeine (Intermediate, HIVES 08/15/16) shellfish derived (HIVES AND THROAT SWELLING 08/15/16) Home Med list Acetaminophen 500 MG TABLET 2 TAB PO PRN PAIN (Reported) Aspirin (Aspirin*) 81 MG TAB.CHEW 1 TAB PO DAILY HEART (Reported) Calcium Carbonate (TUMS) 200 MG CALCIUM (500 MG) TAB.CHEW 2 TAB PO BID PRN HEARTBURN (Reported) Carvedilol (Coreg) 3.125 MG TABLET 1 TAB PO BID CHEST PAIN (Reported) Cholecalciferol (Vitamin D3) (Vitamin D) 1,000 UNIT TABLET 1 TAB PO DAILY Low vit d Check calcium and vitamin d level in 1 month Clobetasol Propionate 0.05 % CREAM..G. 1 RAQUEL TOP BID HANDS (Reported) apply to affected area(s) Epinephrine (Epipen 2-Francisco) 0.3 MG/0.3 ML AUTO.INJCT 0.3 MG IM AD PRN ALLERGIC REACTION (Reported) Isosorbide Mononitrate (Isosorbide Mononitrate ER) 30 MG TAB.ER.24H 1 TAB PO DAILY HEART (Reported) Lisinopril 2.5 MG TABLET 1 TAB PO DAILY Heart Omeprazole 40 MG CAPSULE.DR 1 CAP PO DAILY GI (Reported) Past History Travel History Traveled to [place] past 21 day No Medical History Neurological: NONE EENT: NONE Cardiovascular: myocardial infarction, Takotsubo cardiomyopathy Respiratory: NONE Gastrointestinal: NONE Hepatic: NONE Renal: NONE Musculoskeletal: disk herniation Psychiatric: NONE Endocrine: NONE Blood Disorders: NONE Cancer(s): 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 History of MRSA: No History of VRE: No History of CDIFF: No Surgical History Surgical History: non-contributory Past Family/Social History Psychosocial History Services at Home: None Primary Language: Romansh Physical Exam General Appearance: Alert, Oriented X3, Cooperative, No Acute Distress Skin: No Significant Lesion Cardiovascular: Regular Rate, Normal S1, Normal S2, No Murmurs, Gallops, Rubs Lungs: Clear to Auscultation, Normal Air Movement Abdomen: Normal Bowel Sounds, Soft, No Tenderness Neurological: Strength at 5/5 X4 Ext, Normal Tone Extremities: No Edema Current Medications Sig/Meme Start time Last Medication Dose Route Stop Time Status Admin Acetaminophen 0 .STK-MED ONE 09/06 1851 DC PO Acetaminophen 975 MG ONCE ONE 09/05 1814 DC 09/05 PO 09/05 Aspirin 0 .STK-MED ONE 09/05 1953 DC PO Aspirin 81 MG DAILY 09/05 1920 AC PO Carvedilol 3.125 MG BID 09/06 1000 AC PO Carvedilol 0 .STK-MED ONE 03/24 1851 DC PO Carvedilol 3.125 MG ONCE ONE 09/05 1844 DC PO 09/05 1845 Cholecalciferol 1,000 IU DAILY 09/06 1000 AC PO Enoxaparin Sodium 0 .STK-MED ONE 09/05 1953 DC SC Enoxaparin Sodium 40 MG DAILY 09/05 1917 AC SC Isosorbide 30 MG DAILY 09/06 1000 AC Mononitrate PO Lisinopril 2.5 MG DAILY 09/06 1000 AC PO Omeprazole 40 MG DAILY AC 09/06 0700 AC PO Patient Medication 1 UNIT ONE NR 09/05 2014 [facility] ED 09/05 2029 Patient Medication 1 UNIT ONE NR 09/05 2014 [facility] ED 09/05 2029 Patient Medication 1 UNIT ONE NR 09/05 2014 [facility] ED 09/05 2029 Patient Medication 1 UNIT ONE NR 09/05 2014 [facility] ED 09/05 2029 Laboratory Tests 09/05 09/05 1720 1717 Chemistry Sodium (137 - 145 mmol/L) 140 Potassium (3.5 - 5.1 mmol/L) 4.0 Chloride (98 - 107 mmol/L) 106 Carbon Dioxide (22 - 30 mmol/L) 25 Anion Gap (5 - 16) 10 BUN (7 - 17 mg/dL) 21 H Creatinine (0.5 - 1.0 mg/dL) 0.6 Estimated GFR (>60 ml/min) > 60 BUN/Creatinine Ratio (7 - 25 %) 35.0 H Glucose (65 - 99 mg/dL) 104 H Calcium (8.4 - 10.2 mg/dL) 10.3 H Total Bilirubin (0.2 - 1.3 mg/dL) 0.6 AST (14 - 36 U/L) 26 ALT (9 - 52 U/L) 52 Alkaline Phosphatase (<127 U/L) 60 Troponin I (< 0.11 ng/ml) < 0.01 Total Protein (6.3 - 8.2 g/dL) 7.3 Albumin (3.5 - 5.0 g/dL) 4.5 Globulin (1.9 - 4.2 gm/dL) 2.8 Albumin/Globulin Ratio (1.1 - 2.2 %) 1.6 Coagulation PT (9.4 - 12.5 SEC) 11.8 INR (0.90 - 1.19) 1.13 Hematology CBC w Diff NO MAN DIFF REQ WBC (4.8 - 10.8 /CUMM) 8.7 RBC (4.20 - 5.40 /CUMM) 5.24 Hgb (12.0 - 16.0 G/DL) 11.0 L Hct (37 - 47 %) 35.2 L MCV (81.0 - 99.0 FL) 67.3 L MCH (27.0 - 31.0 PG) 21.0 L RDW (11.5 - 14.5 %) 15.8 H Plt Count (130 - 400 /CUMM) 275 MPV (7.4 - 10.4 FL) 9.4 Gran % (42.2 - 75.2 %) 55.3 Lymphocytes % (20.5 - 51.1 %) 32.9 Monocytes % (1.7 - 9.3 %) 6.0 Eosinophils % (0 - 5 %) 5.4 H Basophils % (0.0 - 2.0 %) 0.4 Absolute Granulocytes (1.4 - 6.5 /CUMM) 4.8 Absolute Lymphocytes (1.2 - 3.4 /CUMM) 2.9 Absolute Monocytes (0.10 - 0.60 /CUMM) 0.5 Absolute Eosinophils (0.0 - 0.7 /CUMM) 0.5 Absolute Basophils (0.0 - 0.2 /CUMM) 0 PUBS MCHC (33.0 - 37.0 G/DL) 31.1 L Urines Urinalysis LIGHT H Urine Color (YEL,AMB,STR) YEL Urine Clarity (CLEAR) CLEAR Urine pH (5.0 - 8.0) 6.5 Ur Specific [place] (1.001 - 1.035) 1.025 Urine Protein (NEG,<30 MG/DL) 30 H Urine Ketones (NEG) NEG Urine Nitrite (NEG) NEG Urine Bilirubin (NEG) NEG Urine Urobilinogen (0.1 - 1.0 EU/dl) 0.2 Ur Leukocyte Esterase (NEG) NEG Ur Microscopic SEDIMENT EXAMINED Urine RBC (0 - 5 /HPF) 1-3 Urine WBC (0 - 2 /HPF) 5-10 H Ur Epithelial Cells (NONE,FEW) FEW Urine Bacteria (NEG/NONE) FEW H Urine Hemoglobin (NEG) SMALL H Urine Glucose (N MG/DL) NEG This is a lady with recent admission to [place]/ [facility] / [facility] with cardiac catheterization with normal coronaries with echo demonstrating global hypokinesis with low ejection fraction 40-45% now here with mild chest discomfort and HTN HTN uncontrolled associated with flushing per pt. NO chemical evidence of pheo and this may need to be worked up again. Pt going for abd ct Chest pain now seems to be resolving SIg cardiomyopathy workup ongoing prob stress induced REC To be admitted for observation Cont all HTN meds Cont isosorbide and other meds Rule out mi Tele monitoring Cardio aware
--- NOTE | 2016-09-05 20:15 | NUR ---
PT MEIDCATED WITH ASPIRIN AND LOVENOX PER EMAR.
--- NOTE | 2016-09-05 20:27 | NUR ---
PT GOING TO ROOM 189-1.
--- NOTE | 2016-09-05 20:37 | CT SCAN REPORT ---
EXAMINATION: CT ABDOMEN AND PELVIS WITHOUT CONTRAST CLINICAL INFORMATION: Carcinoid tumor. Recent adrenaline surges. COMPARISON: Renal ultrasound July 2014. TECHNIQUE: Multidetector volumetric imaging was performed from the superior aspect of the liver through the pubic symphysis. Sagittal and coronal reformatted images were obtained on the technologist's workstation. DLP: 474 mGy-cm FINDINGS: LUNG BASES: The visualized lung bases are unremarkable. LIVER, GALLBLADDER, AND BILIARY TREE: The liver is normal in size, shape, and attenuation. No focal hepatic lesion or biliary ductal dilatation is present. The gallbladder is unremarkable with no evidence of radiopaque gallstones, gallbladder wall thickening, or obvious pericholecystic inflammatory changes. PANCREAS: Unremarkable. SPLEEN: Unremarkable. ADRENAL GLANDS: Unremarkable. KIDNEYS AND URETERS: The kidneys are normal in size, shape, and attenuation. No hydronephrosis, hydroureter, or calculi seen. No perinephric stranding. BLADDER: Unremarkable. GASTROINTESTINAL TRACT: The small and large bowel are unremarkable. The appendix is unremarkable. ABDOMINAL WALL: No significant hernia is appreciated. LYMPH NODES: Normal. VASCULAR: [id number] arterial calcification throughout. PELVIC VISCERA: Unremarkable. OSSEOUS STRUCTURES: Postop changes related to fusion at the L3-L4 and L4-L5 levels with interbody bone graft and cage devices in place. Additional mild multilevel degenerative disc changes present. IMPRESSION: No acute abnormality. No adrenal mass. [id number] calcific atherosclerotic disease.
--- NOTE | 2016-09-05 22:22 | NUR ---
REPORT CALLED TO LEISA REZA TO TELE.
--- NOTE | 2016-09-05 22:22 | NUR ---
[employer] CALLED FOR TRANSPORTATION.
[2016-09-05 23:07] VITALS: BP 140/80
--- NOTE | 2016-09-06 00:29 | NUR ---
INFORMED MILL HELPER ANYI THAT PT HAD BRAYCARDIC EPISODE UNSUSTAINED AT 44. ALL OTHER VITALS WNL. NO C/O PAIN. WILL CTM
--- NOTE | 2016-09-06 01:10 | PN- Housestaff ---
Subjective Follow-up For: Chest pain Stress cardiomyopathy Complaints: no complaints Subjective: Patient is comfortably lying in bed. She denies any chest pain, shortness of breath, nausea, vomiting, abdominal pain, palpitation, dizziness, lightheadedness. Her YUSUF has improved and her urinary symptoms are gone now. She remains afebrile. Review of Systems Constitutional: Reports: see HPI. Objective Last 24 Hrs of Vital Signs/I&O Vital Signs Date Time Temp Pulse Resp B/P Pulse O2 O2 Flow FiO2 Ox Delivery Rate 09/05 2307 97.5 50 20 140/80 97 Room Air 09/05 2230 97.1 54 18 115/58 95 09/05 2014 97.6 56 16 119/57 95 Room Air 09/05 1708 62 16 153/72 95 Room Air 09/05 1702 Room Air 09/05 1643 99.3 68 18 179/92 98 Room Air Intake & Output 09/06 0800 09/06 0000 09/05 1600 Intake Total 480 Output Total Balance 480 Intake, Oral 480 Patient 180 lb Weight Physical Exam General Appearance: Alert, Oriented X3, Cooperative, No Acute Distress Skin: No Rashes HEENT: Atraumatic, PERRLA, EOMI, Mucous Membr. moist/pink Neck: Supple, No JVD Lymphatic: Cervical nl Cardiovascular: Normal S1, Normal S2, No Murmurs Lungs: Clear to Auscultation, Normal Air Movement Abdomen: Normal Bowel Sounds, Soft, No Tenderness Neurological: Normal Speech, Normal Tone, Sensation Intact Extremities: No Cyanosis, No Edema Vascular: Normal Pulses, Pulses Symmetrical Current Medications: Current Medications Sig/Meme Start time Last Medication Dose Route Stop Time Status Admin Acetaminophen 0 .STK-MED ONE 09/06 1851 DC PO Acetaminophen 975 MG ONCE ONE 09/05 1814 DC 09/05 PO 09/06 1815 185 Aspirin 0 .STK-MED ONE 09/05 1953 DC PO Aspirin 81 MG DAILY 09/05 1921 AC 09/05 PO 2014 Carvedilol 3.125 MG BID 09/06 1000 AC PO Carvedilol 0 .STK-MED ONE 09/05 1850 DC PO Carvedilol 3.125 MG ONCE ONE 09/05 1845 DC PO 09/05 184 Cholecalciferol 1,000 IU DAILY 09/06 1000 AC PO Enoxaparin Sodium 0 .STK-MED ONE 09/05 1953 DC SC Enoxaparin Sodium 40 MG DAILY 09/05 1917 AC 09/05 IA 2014 Isosorbide 30 MG DAILY 09/06 1000 AC Mononitrate PO Lisinopril 2.5 MG DAILY 09/06 1000 AC PO Lisinopril 2.5 MG ONCE ONE 09/05 2029 DC PO 09/05 2030 Omeprazole 40 MG DAILY AC 09/06 0700 AC PO Patient Medication 1 UNIT ONE NR 09/05 2014 [facility] ED 09/05 2029 Patient Medication 1 UNIT ONE NR 09/05 2014 [facility] ED 09/05 2029 Patient Medication 1 UNIT ONE NR 09/05 2014 [facility] ED 09/05 2029 Patient Medication 1 UNIT ONE NR 09/05 2014 [facility] ED 09/05 2029 Last 24 Hrs of Lab/Hu Results Last 24 Hrs of Labs/Mics: Laboratory Tests 09/05/16 2315: Troponin I < 0.01 09/05/16 1720: Urinalysis LIGHT H, Urine Color YEL, Urine Clarity CLEAR, Urine pH 6.5, Ur Specific [place] 1.025, Urine Protein 30 H, Urine Ketones NEG, Urine Nitrite NEG, Urine Bilirubin NEG, Urine Urobilinogen 0.2, Ur Leukocyte Esterase NEG, Ur Microscopic SEDIMENT EXAMINED, Urine RBC 1-3, Urine WBC 5-10 H, Ur Epithelial Cells FEW, Urine Bacteria FEW H, Urine Hemoglobin SMALL H, Urine Glucose NEG 09/05/16 1717: Anion Gap 10, Estimated GFR > 60, BUN/Creatinine Ratio 35.0 H, Glucose 104 H, Calcium 10.3 H, Total Bilirubin 0.6, AST 26, ALT 52, Alkaline Phosphatase 60, Troponin I < 0.01, Total Protein 7.3, Albumin 4.5, Globulin 2.8, Albumin/ Globulin Ratio 1.6, PT 11.8, INR 1.13, CBC w Diff NO MAN DIFF REQ, RBC 5.24, MCV 67.3 L, MCH 21.0 L, RDW 15.8 H, MPV 9.4, Gran % 55.3, Lymphocytes % 32.9, Monocytes % 6.0, Eosinophils % 5.4 H, Basophils % 0.4, Absolute Granulocytes 4.8, Absolute Lymphocytes 2.9, Absolute Monocytes 0.5, Absolute Eosinophils 0.5, Absolute Basophils 0, PUBS MCHC 31.1 L Assessment/Plan Assessment: This is 56 year old female with past medical history of beta thalassemia, stress cardiomyopathy (patient was evaluated a month ago for chest pain with EKG changes and elevated troponin this cardiac cath noted negative and reduce EF to 45-50% all suggestive of stress cardiomyopathy) low 80s with the Aleve Know she is mobilizing she went for admission to floor by think she. Presents from home with chief complaint of chest discomfort started a day prior to admission. 1. Acute chest pain - Serial troponin remains negativeX2 and morning troponin pending - noted persistent Twave inversion in anterolateral lead unchanged - Likely stress related - Cardiology consult in a.m., if ok possible discharge later today if her troponin remains negative - Continue aspirin, beta flaquita and imdur - Recent echo noted with EF 55-60% without any wall motion abnormality 2. Stress-induced cardiomyopathy - Continue aspirin, beta flaquita, Imdur 3. Hypertension - Continue beta flaquita and lisinopril 4. Hypercalcemia - Noted normal PTH and low calcium in recent lab - Likely secondary to Tums use 5. Flushing with abdominal pain, palpitatin - noted recent blood work up for likely Pheo including urinary metanephrines and catecholamines 9 which was negative and also patient had workup for possible carcinoid with -5 HIAA -CT abdomen pelvis noted negative for any adrenal mass - likely related with anxiety, further work up as outpatient 6. DVT prophylaxis On subcutaneous Lovenox 7. Full code. Problem List: 1. Chest pain 2. Hypertension Pain Ratin Pain Location: none Pain Goal: Pain 4 or less Pain Plan: tylenol Tomorrow's Labs & Rationales: none DVT/Prophylaxis: pharmacological Consulting Request: Consulting Specialty: Cardiology Consulting Physician: Dr. Valdes Reason for Consult: chest pain
--- NOTE | 2016-09-06 07:32 | Patient Discharge Instructions ---
Discharge Instructions General Discharge Information You were seen/treated for: acute chest pain Watch for these problems: episode of chest pressure with diaphoresis, palpitation, sob Special Instructions: Please follow up with PCP within a week of discharge. Please follow up with cardiology within a week of discharge. Diet Recommended Diet: Heart Healthy Activity Additional ACTIVITY Info: as tolerated Acute Coronary Syndrome Inclusion Criteria At DC or during hospital stay patient has or had the following: ACS DIAGNOSIS No Discharge Core Measures Meds if any: Prescribed or Continued at Discharge Meds if any: NOT Prescribed or Continued at Discharge Congestive Heart Failure Inclusion Criteria At DC or during hospital stay patient has or had the following: CHF DIAGNOSIS No Discharge Core Measures Meds if any: Prescribed or Continued at Discharge Meds if any: NOT Prescribed or Continued at Discharge Cerebrovascular accident Inclusion Criteria At DC or during hospital stay patient has or had the following: CVA/TIA Diagnosis No Discharge Core Measures Meds if any: Prescribed or Continued at Discharge Meds if any: NOT Prescribed or Continued at Discharge Venous thromboembolism Inclusion Criteria VTE Diagnosis No VTE Type NONE VTE Confirmed by (Test) NONE Discharge Core Measures - Per Current guidelines, there needs to be overlap - treatment for the first 5 days of Warfarin therapy. - If discharged on Warfarin prior to 5 days of - overlap therapy, the patient will need to be - assessed for post discharge needs including - *Post discharge parental anticoagulation - *Warfarin and/or parental anticoagulation education - *Follow up date to check INR post discharge At least 5 days overlap therapy as Inpatient No Meds if any: Prescribed or Continued at Discharge Note: Overlap Therapy is Warfarin and Anticoagulant Meds if any: NOT Prescribed or Continued at Discharge
[2016-09-06 08:15] VITALS: BP 130/60
[2016-09-06 09:16] VITALS: BP 130/74
--- NOTE | 2016-09-06 11:45 | Cons- Cardiology ---
General Information and HPI Consulting Request Date of Consult: 09/06/16 Requested By: RADHA JUNG,KELSEY Nails Reason for Consult: Chest pain History of Present Illness: The patient is a 57-year-old female who presented to the emergency department on August 15 with chest pain which time she was noted to have mild ST elevation and positive troponin. She was transferred for cardiac catheterization. The catheterization revealed normal coronary arteries with LV ejection fraction 40- 45%. She was diagnosed with takotsubo stress-induced cardiomyopathy and discharged home. She has had multiple episodes of chest discomfort since that time. She has been seen in the emergency department several times. She was also recently admitted to [facility] for 4 days. A stress test at [facility] was negative, and she was discharged to home. She now presents with complaint of left-sided chest pressure. The pressure is a 5 out of 10, is nonexertional, and does not radiate. She also notes recent headaches. She notes that she has been feeling like she is not able to catch her breath. Finally, she notes recent epigastric discomfort. The symptoms seem to be worse after large meals. She was admitted for overnight observation for chest discomfort. She reports that she is feeling better today. No syncope. No orthopnea. No lightheadedness or dizziness. Allergies/Medications Allergies: Coded Allergies: Fish Containing Products (Severe, HIVES AND THROAT SWELLING 08/15/16) Penicillins (Intermediate, HIVES 08/15/16) codeine (Intermediate, HIVES 08/15/16) shellfish derived (HIVES AND THROAT SWELLING 08/15/16) Home Med List: Acetaminophen 500 MG TABLET 2 TAB PO PRN PAIN (Reported) Aspirin (Aspirin*) 81 MG TAB.CHEW 1 TAB PO DAILY HEART (Reported) Calcium Carbonate (TUMS) 200 MG CALCIUM (500 MG) TAB.CHEW 2 TAB PO BID PRN HEARTBURN (Reported) Carvedilol (Coreg) 3.125 MG TABLET 1 TAB PO BID CHEST PAIN (Reported) Cholecalciferol (Vitamin D3) (Vitamin D) 1,000 UNIT TABLET 1 TAB PO DAILY Low vit d Check calcium and vitamin d level in 1 month Clobetasol Propionate 0.05 % CREAM..G. 1 RAQUEL TOP BID HANDS (Reported) apply to affected area(s) Epinephrine (Epipen 2-Francisco) 0.3 MG/0.3 ML AUTO.INJCT 0.3 MG IM AD PRN ALLERGIC REACTION (Reported) Isosorbide Mononitrate (Isosorbide Mononitrate ER) 30 MG TAB.ER.24H 1 TAB PO DAILY HEART (Reported) Lisinopril 2.5 MG TABLET 1 TAB PO DAILY Heart Omeprazole 40 MG CAPSULE.DR 1 CAP PO DAILY GI (Reported) Current Medications: Current Medications Sig/Meme Start time Last Medication Dose Route Stop Time Status Admin Acetaminophen 0 .STK-MED ONE 09/06 1851 DC PO Acetaminophen 975 MG ONCE ONE 09/05 1814 DC 09/05 PO 09/05 Aspirin 0 .STK-MED ONE 09/05 1953 DC PO Aspirin 81 MG DAILY 09/05 1921 AC 09/06 PO 0914 Carvedilol 3.125 MG BID 09/06 1000 AC PO Carvedilol 0 .STK-MED ONE 09/05 1850 DC PO Carvedilol 3.125 MG ONCE ONE 09/05 1845 DC PO 09/05 184 Cholecalciferol 1,000 IU DAILY 09/06 1000 AC 09/06 PO 0914 Enoxaparin Sodium 0 .STK-MED ONE 09/05 1953 DC SC Enoxaparin Sodium 40 MG DAILY 09/05 1918 AC 09/06 SC 0916 Isosorbide 30 MG DAILY 09/06 1000 AC 09/06 Mononitrate PO 0916 Lisinopril 2.5 MG DAILY 09/06 1000 AC 09/06 PO 0914 Lisinopril 2.5 MG ONCE ONE 09/05 2029 DC PO 09/05 2030 Omeprazole 40 MG DAILY AC 09/06 0700 AC 09/06 PO 0615 Patient Medication 1 UNIT ONE NR 09/05 2014 [facility] ED 09/05 2029 Patient Medication 1 UNIT ONE NR 09/05 2014 [facility] ED 09/05 2029 Patient Medication 1 UNIT ONE NR 09/05 2014 [facility] ED 09/05 2029 Patient Medication 1 UNIT ONE NR 09/05 2014 [facility] ED 09/05 2029 Review of Systems Review of Systems: No rash. No tremor. No melena. No hemoptysis. No cough. All other systems were reviewed, and were noted to be negative. 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 FHx: diabetes mellitus FATHER FH: CAD (coronary artery disease) FHx: diabetes mellitus SISTER FH: thyroid cancer Psychosocial History Where Do You Live? Home Who Do You Live With? spouse Services at Home: None Primary Language: Welsh Smoking Status: Former Smoker (25 pack year hx) ETOH Use: denies use Illicit Drug Use: denies illicit drug use Living Will? no (vasovagal) Functional Ability ADLs Independent: dressing, eating, toileting, bathing. Ambulation: independent (he) IADLs Independent: shopping, housework, finances, food prep, telephone, transportation , medication admin. ECHO Results (as available) Date of last Echo 08/20/16 EF% 55 Exam & Diagnostic Data Vital Signs and I&O Vital Signs Date Time Temp Pulse Resp B/P Pulse O2 O2 Flow FiO2 Ox Delivery Rate 09/06 0916 55 130/74 09/06 0916 55 130/74 09/06 0914 55 130/74 09/06 0815 97.9 80 16 130/60 97 Room Air 09/05 2307 97.5 50 20 140/80 97 Room Air 09/05 2230 97.1 54 18 115/58 95 09/05 2014 97.6 56 16 119/57 95 Room Air 09/05 1708 62 16 153/72 95 Room Air 09/05 1702 Room Air 09/05 1643 99.3 68 18 179/92 98 Room Air Intake & Output 09/06 1600 09/06 0800 09/06 0000 09/05 1600 09/05 0800 09/05 0000 Intake Total 120 480 Output Total Balance 120 480 Intake, Oral 120 480 Patient 180 lb Weight Physical Exam: Gen: The patient is in no acute distress HEENT: Normal nose, ears, and oropharynx. Pupils equal bilaterally. Conjunctiva normal. Neck: Supple with no JVD, no masses, and no thyromegaly Lungs: Clear to auscultation with normal respiratory effort Heart: RRR, S1, S2, no murmurs. No peripheral edema, 2+ pulses in the lower extremities bilaterally Abdomen: Soft, nontender, no masses. No hepatomegaly. No splenomegaly Extremities: No clubbing or cyanosis. Normal muscle strength in the upper and lower extremities Skin: Normal skin turgor with no skin ulcers or lesions noted. Neuro: Cranial nerves intact. Sensation intact Psych: Alert and oriented 3 with appropriate affect Labs/Hu Results: Laboratory Tests 09/06 09/05 09/05 0607 2315 1720 Chemistry Troponin I (< 0.11 ng/ml) < 0.01 < 0.01 Urines Urinalysis LIGHT H Urine Color (YEL,AMB,STR) YEL Urine Clarity (CLEAR) CLEAR Urine pH (5.0 - 8.0) 6.5 Ur Specific [place] (1.001 - 1.035) 1.025 Urine Protein (NEG,<30 MG/DL) 30 H Urine Ketones (NEG) NEG Urine Nitrite (NEG) NEG Urine Bilirubin (NEG) NEG Urine Urobilinogen (0.1 - 1.0 EU/dl) 0.2 Ur Leukocyte Esterase (NEG) NEG Ur Microscopic SEDIMENT EXAMINED Urine RBC (0 - 5 /HPF) 1-3 Urine WBC (0 - 2 /HPF) 5-10 H Ur Epithelial Cells (NONE,FEW) FEW Urine Bacteria (NEG/NONE) FEW H Urine Hemoglobin (NEG) SMALL H Urine Glucose (N MG/DL) NEG 09/05 1717 Chemistry Sodium (137 - 145 mmol/L) 140 Potassium (3.5 - 5.1 mmol/L) 4.0 Chloride (98 - 107 mmol/L) 106 Carbon Dioxide (22 - 30 mmol/L) 25 Anion Gap (5 - 16) 10 BUN (7 - 17 mg/dL) 21 H Creatinine (0.5 - 1.0 mg/dL) 0.6 Estimated GFR (>60 ml/min) > 60 BUN/Creatinine Ratio (7 - 25 %) 35.0 H Glucose (65 - 99 mg/dL) 104 H Calcium (8.4 - 10.2 mg/dL) 10.3 H Total Bilirubin (0.2 - 1.3 mg/dL) 0.6 AST (14 - 36 U/L) 26 ALT (9 - 52 U/L) 52 Alkaline Phosphatase (<127 U/L) 60 Troponin I (< 0.11 ng/ml) < 0.01 Total Protein (6.3 - 8.2 g/dL) 7.3 Albumin (3.5 - 5.0 g/dL) 4.5 Globulin (1.9 - 4.2 gm/dL) 2.8 Albumin/Globulin Ratio (1.1 - 2.2 %) 1.6 Coagulation PT (9.4 - 12.5 SEC) 11.8 INR (0.90 - 1.19) 1.13 Hematology CBC w Diff NO MAN DIFF REQ WBC (4.8 - 10.8 /CUMM) 8.7 RBC (4.20 - 5.40 /CUMM) 5.24 Hgb (12.0 - 16.0 G/DL) 11.0 L Hct (37 - 47 %) 35.2 L MCV (81.0 - 99.0 FL) 67.3 L MCH (27.0 - 31.0 PG) 21.0 L RDW (11.5 - 14.5 %) 15.8 H Plt Count (130 - 400 /CUMM) 275 MPV (7.4 - 10.4 FL) 9.4 Gran % (42.2 - 75.2 %) 55.3 Lymphocytes % (20.5 - 51.1 %) 32.9 Monocytes % (1.7 - 9.3 %) 6.0 Eosinophils % (0 - 5 %) 5.4 H Basophils % (0.0 - 2.0 %) 0.4 Absolute Granulocytes (1.4 - 6.5 /CUMM) 4.8 Absolute Lymphocytes (1.2 - 3.4 /CUMM) 2.9 Absolute Monocytes (0.10 - 0.60 /CUMM) 0.5 Absolute Eosinophils (0.0 - 0.7 /CUMM) 0.5 Absolute Basophils (0.0 - 0.2 /CUMM) 0 PUBS MCHC (33.0 - 37.0 G/DL) 31.1 L Diagnostic Data EKG Results EKG tracing is independently reviewed, and reveals normal sinus rhythm at 50, anterior T-wave abnormality CXR Results Chest x-ray: Negative Other Results CT scan of the abdomen and pelvis: No acute abnormality. No adrenal mass. [id number] calcific atherosclerotic disease. Assessment/Plan Assessment/Plan Assessment: The patient is a 56-year-old female with recent admission for takotsubo cardiomyopathy. Her recent cardiac catheterization showed normal coronary arteries, and her recent stress test was reportedly negative at [facility]. She is now admitted with recurrent chest pain in association with headaches, difficulty catching her breath, and abdominal discomfort. CT scan of the abdomen showed no evidence of pheochromocytoma or other abdominal malignancy. Myocardial infarctions and has been ruled out with negative troponin 3. No cardiac etiology for her current symptoms has been identified. The differential diagnosis includes panic attacks. I advised her that given her extensive recent workup, I believe she may be safely discharged for further evaluation as an outpatient. Recommendations: * Continue outpatient cardiac medications, including lisinopril, carvedilol, isosorbide, and low-dose aspirin. * The patient is cleared for discharge from cardiac standpoint. * Follow up with Dr. Wellington in one week. * The patient is advised to call with further symptoms. Consult Acknowledgment - Thank you for your consult request.
[2016-09-06] MEDS ORDERED: PRINIVIL5 M1 PO (12:53)
--- NOTE | 2016-09-06 13:55 | PN- Pulmonary ---
Subjective HPI/Critical Care Issues: Doing well afebrile Discussed with the patient and cardio Laboratory Tests 09/06 09/05 09/05 0607 2310 1723 Chemistry Troponin I (< 0.11 ng/ml) < 0.01 < 0.01 Urines Urinalysis LIGHT H Urine Color (YEL,AMB,STR) YEL Urine Clarity (CLEAR) CLEAR Urine pH (5.0 - 8.0) 6.5 Ur Specific [place] (1.001 - 1.035) 1.025 Urine Protein (NEG,<30 MG/DL) 30 H Urine Ketones (NEG) NEG Urine Nitrite (NEG) NEG Urine Bilirubin (NEG) NEG Urine Urobilinogen (0.1 - 1.0 EU/dl) 0.2 Ur Leukocyte Esterase (NEG) NEG Ur Microscopic SEDIMENT EXAMINED Urine RBC (0 - 5 /HPF) 1-3 Urine WBC (0 - 2 /HPF) 5-10 H Ur Epithelial Cells (NONE,FEW) FEW Urine Bacteria (NEG/NONE) FEW H Urine Hemoglobin (NEG) SMALL H Urine Glucose (N MG/DL) NEG 09/05 1717 Chemistry Sodium (137 - 145 mmol/L) 140 Potassium (3.5 - 5.1 mmol/L) 4.0 Chloride (98 - 107 mmol/L) 106 Carbon Dioxide (22 - 30 mmol/L) 25 Anion Gap (5 - 16) 10 BUN (7 - 17 mg/dL) 21 H Creatinine (0.5 - 1.0 mg/dL) 0.6 Estimated GFR (>60 ml/min) > 60 BUN/Creatinine Ratio (7 - 25 %) 35.0 H Glucose (65 - 99 mg/dL) 104 H Calcium (8.4 - 10.2 mg/dL) 10.3 H Total Bilirubin (0.2 - 1.3 mg/dL) 0.6 AST (14 - 36 U/L) 26 ALT (9 - 52 U/L) 52 Alkaline Phosphatase (<127 U/L) 60 Troponin I (< 0.11 ng/ml) < 0.01 Total Protein (6.3 - 8.2 g/dL) 7.3 Albumin (3.5 - 5.0 g/dL) 4.5 Globulin (1.9 - 4.2 gm/dL) 2.8 Albumin/Globulin Ratio (1.1 - 2.2 %) 1.6 Coagulation PT (9.4 - 12.5 SEC) 11.8 INR (0.90 - 1.19) 1.13 Hematology CBC w Diff NO MAN DIFF REQ WBC (4.8 - 10.8 /CUMM) 8.7 RBC (4.20 - 5.40 /CUMM) 5.24 Hgb (12.0 - 16.0 G/DL) 11.0 L Hct (37 - 47 %) 35.2 L MCV (81.0 - 99.0 FL) 67.3 L MCH (27.0 - 31.0 PG) 21.0 L RDW (11.5 - 14.5 %) 15.8 H Plt Count (130 - 400 /CUMM) 275 MPV (7.4 - 10.4 FL) 9.4 Gran % (42.2 - 75.2 %) 55.3 Lymphocytes % (20.5 - 51.1 %) 32.9 Monocytes % (1.7 - 9.3 %) 6.0 Eosinophils % (0 - 5 %) 5.4 H Basophils % (0.0 - 2.0 %) 0.4 Absolute Granulocytes (1.4 - 6.5 /CUMM) 4.8 Absolute Lymphocytes (1.2 - 3.4 /CUMM) 2.9 Absolute Monocytes (0.10 - 0.60 /CUMM) 0.5 Absolute Eosinophils (0.0 - 0.7 /CUMM) 0.5 Absolute Basophils (0.0 - 0.2 /CUMM) 0 PUBS MCHC (33.0 - 37.0 G/DL) 31.1 L Objective Current Medications: Current Medications Sig/Meme Start time Last Medication Dose Route Stop Time Status Admin Acetaminophen 0 .STK-MED ONE 09/06 1851 DC PO Acetaminophen 975 MG ONCE ONE 09/05 1814 DC 09/05 PO 09/05 Aspirin 0 .STK-MED ONE 09/05 1953 DC PO Aspirin 81 MG DAILY 09/05 192 DCD 09/06 PO 0914 Carvedilol 3.125 MG BID 09/06 1000 DCD PO Carvedilol 0 .STK-MED ONE 09/05 1850 DC PO Carvedilol 3.125 MG ONCE ONE 09/05 184 DC PO 09/05 184 Cholecalciferol 1,000 IU DAILY 09/06 1000 DCD 09/06 PO 0914 Enoxaparin Sodium 0 .STK-MED ONE 09/05 1953 DC SC Enoxaparin Sodium 40 MG DAILY 09/05 1917 DCD 09/06 SC 0916 Isosorbide 30 MG DAILY 09/06 1000 DCD 09/06 Mononitrate PO 0916 Lisinopril 2.5 MG DAILY 09/06 1000 DCD 09/06 PO 0914 Lisinopril 2.5 MG ONCE ONE 09/05 2029 DC PO 09/05 2030 Omeprazole 40 MG DAILY AC 09/06 0700 DCD 09/06 PO 0615 Patient Medication 1 UNIT ONE NR 09/05 2014 [facility] 09/05 2029 Patient Medication 1 UNIT ONE NR 09/05 2014 [facility] ED 09/05 2029 Patient Medication 1 UNIT ONE NR 09/05 2014 [facility] ED 09/05 2029 Patient Medication 1 UNIT ONE NR 09/05 2014 [facility] ED 09/05 2029 Vital Signs & I&O Last 24 Hrs of Vitals and I&O: Vital Signs Date Time Temp Pulse Resp B/P Pulse O2 O2 Flow FiO2 Ox Delivery Rate 09/06 0916 55 130/74 09/06 0916 55 130/74 09/06 0914 55 130/74 09/06 0815 97.9 80 16 130/60 97 Room Air 09/05 2307 97.5 50 20 140/80 97 Room Air 09/05 2230 97.1 54 18 115/58 95 09/05 2014 97.6 56 16 119/57 95 Room Air 09/05 1708 62 16 153/72 95 Room Air 09/05 1702 Room Air 09/05 1643 99.3 68 18 179/92 98 Room Air Intake & Output 09/06 1600 09/06 0800 09/06 0000 Intake Total 120 480 Output Total Balance 120 480 Intake, Oral 120 480 Patient 180 lb Weight Impression/Plan Impression/Plan Impression/Plan: CT abd nil acute The patient is a 56-year-old female with recent admission for takotsubo cardiomyopathy. Her recent cardiac catheterization showed normal coronary arteries, and her recent stress test was reportedly negative at [facility]. She is now admitted with recurrent chest pain in association with headaches, difficulty catching her breath, and abdominal discomfort. CT scan of the abdomen showed no evidence of pheochromocytoma or other abdominal malignancy. Myocardial infarctions and has been ruled out with negative troponin 3. No cardiac etiology for her current symptoms has been identified. The differential diagnosis includes panic attacks. I advised her that given her extensive recent workup, I believe she may be safely discharged for further evaluation as an outpatient. Recommendations: * Continue outpatient cardiac medications, including lisinopril, carvedilol, isosorbide, and low-dose aspirin. * Cont all meds and can increase lisinopril, discussed with rozina and pt to call us if any worse * Follow up with Dr. Wellington in one week.
== END 2016-09-06 13:15 ==
LOC: ENRESERVDT → ENRESERVTM → ERH 16:35 → ENPENDDIS 19:27 → ERHI 19:27 → 1NO 22:37
PROVIDERS: Physician Assistant Medical; ADMIT Internal Medicine Pulmonary Disease
DX: R07.9 Chest pain, unspecified (principal); D56.1 Beta thalassemia; I51.81 Takotsubo syndrome; K21.9 Gastro-esophageal reflux disease without esophagitis; R51 Headache; I11.9 Hypertensive heart disease without heart failure
CPT/HCPCS: 6020; 36415; 74176; 81001; 93005; 93010; 96372; G0378; J1650; J3490

== ENCOUNTER 2016-09-15 01:15 | Observation (INO) | payer OTHER ==
[~2016-09-15] VITALS: Ht 157.5 cm; Wt 81.6 kg
[~2016-09-15 01:15] MED LIST changes: +ACETAMINOPHEN500 M4 PO; +ISOSORBIDE MONO30 M1 PO; +PRINIVIL5 M1 PO
--- NOTE | 2016-09-15 01:29 | ED CARDIAC/CP/PALPITATIONS ---
History of Present Illness General Chief Complaint: General Adult Stated Complaint: "CP RADIATES [id number] UNDER LT ARMPIT, BP 184/90" Source: patient Exam Limitations: no limitations Vital Signs & Intake/Output Vital Signs & Intake/Output Vital Signs Date Time Temp Pulse Resp B/P Pulse O2 O2 Flow FiO2 Ox Delivery Rate 09/15 0256 97.1 58 20 156/78 96 Room Air 09/15 0235 95 09/15 0204 62 20 159/89 94 Room Air 09/15 0144 71 18 143/74 94 Room Air 09/15 0135 172/84 09/15 0130 199/91 09/15 0129 97.5 70 18 187/79 97 Room Air Allergies Coded Allergies: Fish Containing Products (Severe, HIVES AND THROAT SWELLING 08/15/16) Penicillins (Intermediate, HIVES 08/15/16) codeine (Intermediate, HIVES 08/15/16) shellfish derived (HIVES AND THROAT SWELLING 08/15/16) Reconcile Medications Acetaminophen 500 MG TABLET 2 TAB PO PRN PAIN (Reported) Aspirin (Aspirin*) 81 MG TAB.CHEW 1 TAB PO DAILY HEART (Reported) Carvedilol (Coreg) 3.125 MG TABLET 1 TAB PO BID CHEST PAIN (Reported) Cholecalciferol (Vitamin D3) (Vitamin D) 1,000 UNIT TABLET 1 TAB PO DAILY Low vit d Check calcium and vitamin d level in 1 month Clobetasol Propionate 0.05 % CREAM..G. 1 RAQUEL TOP BID HANDS (Reported) apply to affected area(s) Epinephrine (Epipen 2-Francisco) 0.3 MG/0.3 ML AUTO.INJCT 0.3 MG IM AD PRN ALLERGIC REACTION (Reported) Isosorbide Mononitrate (Isosorbide Mononitrate ER) 30 MG TAB.ER.24H 1 TAB PO DAILY HEART (Reported) Lisinopril 2.5 MG TABLET 1 TAB PO DAILY PRN QHS PRN HTN (Reported) Lisinopril (Prinivil) 5 MG TABLET 1 TAB PO DAILY HTN Omeprazole 40 MG CAPSULE.DR 1 CAP PO DAILY GI (Reported) Triage Nurses Notes Reviewed? yes Onset: Abrupt Duration: hour(s): Timing: recent history Quality/Severity: moderate, pressure Location: central Radiation: left shoulder Activities at Onset: sleep Prior Chest Pain/Card Workup: cardiac cath Aspirin Today: 81 mg x 2, provided at home Associated Symptoms: chest pain. HPI: 56 yo woman h/o thal minor, presents with 2/10 chest pressure for the past several hours. She notes "At 6pm yesterday, I felt like my heart was pounding.... like my blood pressure was going up." She notes radiation of the pressure to her left shoulder. She denies diaphoresis, nausea, vomiting, shortness of breath. She is otherwise well. Past History Travel History Traveled to [place] past 21 day No Medical History Any Pertinent Medical History? 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 FHx: diabetes mellitus FATHER FH: CAD (coronary artery disease) FHx: diabetes mellitus SISTER FH: thyroid cancer Hx Contributory? No Review of Systems Review of Systems Constitutional: Reports: no symptoms. EENTM: Reports: no symptoms. Respiratory: Reports: no symptoms. Cardiovascular: Reports: no symptoms. GI: Reports: no symptoms. Genitourinary: Reports: no symptoms. Musculoskeletal: Reports: no symptoms. Skin: Reports: no symptoms. Neurological/Psychological: Reports: no symptoms. Hematologic/Endocrine: Reports: no symptoms. Immunologic/Allergic: Reports: no symptoms. All Other Systems: Reviewed and Negative Physical Exam Physical Exam General Appearance: well developed/nourished, mild distress Head: atraumatic, normal appearance Eyes: Bilateral: normal appearance. Ears, Nose, Throat: normal pharynx, normal ENT inspection, hearing grossly normal Neck: normal inspection, supple, full range of motion Respiratory: normal breath sounds, chest non-tender, no respiratory distress, quiet respiration, lungs clear Cardiovascular: regular rate/rhythm Gastrointestinal: normal bowel sounds, soft, non-tender, no organomegaly Back: normal inspection Extremities: normal inspection, normal capillary refill, normal range of motion, no edema Neurologic/Psych: no motor/sensory deficits, awake, alert, oriented x 3, normal gait Skin: intact, normal color, warm/dry Core Measures ACS in differential dx? Yes ASA ordered for poss ACS? Yes-ordered Severe Sepsis Present: No Septic Shock Present: No Progress Differential Diagnosis: mi vs acs vs other. Plan of Care: Orders Procedure Date/time Status Nothing by Mouth 09/15 B Active Saline Lock 09/[address] in observation 09/15 309 Active Misc Message 09/15 309 Active ED Holding Orders 09/15 309 Active Vital Signs 09/15 309 Active Code Status 09/15 309 Active TROPONIN LEVEL 09/15 120 Complete PARTIAL THROMBOPLASTIN TIME 09/15 120 Complete PROTHROMBIN TIME 09/15 120 Complete D-DIMER 09/15 120 Complete COMPREHENSIVE METABOLIC PANEL 09/15 120 Complete CBC WITHOUT DIFFERENTIAL 09/15 120 Complete EKG 09/15 116 Active Current Medications Sig/Meme Start time Last Medication Dose Stop Time Status Admin Amlodipine Besylate 10 MG DAILY 09/15 1000 [facility] ([facility]) Laboratory Tests 09/15/16 0134: Anion Gap 7, Estimated GFR > 60, BUN/Creatinine Ratio 30.0 H, Glucose 105 H, Calcium 10.5 H, Total Bilirubin 0.5, AST 25, ALT 51, Alkaline Phosphatase 64, Troponin I < 0.01, Total Protein 7.1, Albumin 4.3, Globulin 2.8, Albumin/ Globulin Ratio 1.5, PT 10.6, INR 1.01, APTT 27, D-Dimer < 200, CBC w Diff MAN DIFF ORDERED, RBC 5.35, MCV 66.3 L, MCH 21.2 L, RDW 15.7 H, MPV 9.2, Gran % 51.8, Lymphocytes % 35.9, Monocytes % 6.5, Eosinophils % 4.9, Basophils % 0.9, Absolute Granulocytes 5.1, Segmented Neutrophils 46, Absolute Lymphocytes 3.5 H , Lymphocytes 44, Monocytes 7, Absolute Monocytes 0.6, Eosinophils 3, Absolute Eosinophils 0.5, Absolute Basophils 0.1, Platelet Estimate ADEQUATE, Polychromasia 1+, Hypochromic-Microcytic 1+, Poikilocytosis 2+, Basophilic Stippling 1+, Anisocytosis 3+, Microcytic Cells 3+, Ovalocytes 1+, Stomatocytes FEW, Elliptocytes 1+, PUBS MCHC 32.0 L, Fld Total RBCs Counted 100 Diagnostic Imaging: Viewed by Me: Radiology Read. Discussed w/RAD: Radiology Read. CXR Impression: no acute abnormality, no infiltrates, normal size heart, normal mediastinum Initial ED EKG: flipped t waves v3-v5, mild in v6, less pronounced than prior ekg's. Comments: PATIENT: J CARLOS TEE PRESENT AGE: 56 PATIENT ACCOUNT NO: [id number] : 56 LOCATION: [facility] ORDERING PHYSICIAN: ALISTAIR BRADFORD MD SERVICE DATE: 09/15/16 EXAM TYPE: RAD - XRY-PORTABLE CHEST XRAY EXAMINATION: XR PORTABLE CHEST CLINICAL INFORMATION: Chest pain. COMPARISON: Chest x-ray 09/05/2016 TECHNIQUE: Portable AP portable view of the chest was obtained. 1:31 AM FINDINGS: No acute abnormality of the chest. The lungs are clear. No pulmonary vascular congestion or pleural effusion. Heart size is normal. The cardiac and the mediastinal contours are normal. There are multiple small calcifications over the right shoulder soft tissue and humeral head consistent with calcific bursitis/tendinosis. IMPRESSION: No acute abnormality of the chest. DICTATED BY: SAMINA BURGESS MD DATE/TIME DICTATED:09/15/16154 [facility] DIRECTOR:EMILI DATE/TIME TRANSCRIBED:09/15/16154 CONFIDENTIAL, DO NOT COPY WITHOUT APPROPRIATE AUTHORIZATION. <Electronically signed in Other Vendor System> SIGNED BY: SAMINA BURGESS MD 09/15/16 0200 Departure Departure Disposition: STILL A PATIENT Condition: Stable Clinical Impression Primary Impression: Chest pain Referrals: PURA HADLEY MD (PCP/Family) Departure Forms: Customer Survey General Discharge Information Comments 09/15/16, 2:10... pt notes feeling improvement in her chest pain after nitro. sbp dropped to 140's. Pt report mild dizziness, declines zofran, further meds at this point. Observation Note Spoke With: PURA HADLEY MD Physician Advisor Notified: NYASIA OMER DO Place Patient In: Non-ED OBS Care Area Rationale for Observation: My rational for observation is as follows . Pt with hypertension, nitro responsive chest pain, now chest pain free. Pt merits observation for serial trops/ekg and medical optimization given her recent myocardial infarction in August 2016. Critical Care Note Critical Care Note Critical Care Time: 30-74 min
[2016-09-15 01:41] LABS: ABSOLUTE BASOPHIL COUNT 0.1 /CUMM (0.0-0.2); ABSOLUTE EOSINOPHIL COUNT 0.5 /CUMM (0.0-0.7); ABSOLUTE GRANULOCYTE CT 5.1 /CUMM (1.4-6.5); ABSOLUTE LYMPH COUNT 3.5 /CUMM (1.2-3.4); ABSOLUTE MONOCYTE COUNT 0.6 /CUMM (0.10-0.60); BASOPHIL % 0.9 % (0.0-2.0); EOSINOPHIL % 4.9 % (0-5); GRANULOCYTE % 51.8 % (42.2-75.2); HEMATOCRIT 35.5 % (37-47); MEAN CORPUSCULAR HGB 21.2 PG (27.0-31.0); MEAN CORPUSCULAR VOLUME 66.3 FL (81.0-99.0); MEAN PLATELET VOLUME 9.2 FL (7.4-10.4); PLATELET COUNT 258 /CUMM (130-400); RBC DISTRIBUTION WIDTH 15.7 % (11.5-14.5); RED BLOOD CELL CT 5.35 /CUMM (4.20-5.40); WHITE BLOOD CELL COUNT 9.8 /CUMM (4.8-10.8)
[2016-09-15] MEDS ORDERED: LISINOPRIL2.5 M1 PO (01:57)
[2016-09-15 01:59] LABS: PT 10.6 SEC (9.4-12.5); PTT 27 SEC (25-37)
--- NOTE | 2016-09-15 02:00 | RADIOLOGY REPORT ---
EXAMINATION: XR PORTABLE CHEST CLINICAL INFORMATION: Chest pain. COMPARISON: Chest x-ray 09/05/2016 TECHNIQUE: Portable AP portable view of the chest was obtained. 1:31 AM FINDINGS: No acute abnormality of the chest. The lungs are clear. No pulmonary vascular congestion or pleural effusion. Heart size is normal. The cardiac and the mediastinal contours are normal. There are multiple small calcifications over the right shoulder soft tissue and humeral head consistent with calcific bursitis/tendinosis. IMPRESSION: No acute abnormality of the chest.
--- NOTE | 2016-09-15 04:18 | History & Physical ---
See Addendum NASREEN JUNG,KEVAN 09/15/16 0417: General Information and HPI MD Statement: I have seen and personally examined J CARLOS TEE and documented this H&P. The patient is a 56 year old F who presented with a patient stated chief complaint of [high blood pressure]. 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 Patient reports that early last night she started to feel buzzing in the ears, BP was elevated to 180/82, she also found it hard to breath deeply for a short while, she took an extra dose of lisinopril 2.5 mg at 6:30 pm. At [address] Mane as the BP went further up to 190/90, she took another lisinopril 2.5 mg per his suggestion and also took aspirin, by that time she also started to feel her heart beats and dull pain in the chest and left arm pit , feeling 'as if there is a bubble or air in my chest'. She denies any chest pressure, no sweating, no dizziness, reports headache (pounding in nature) that started since about a month ago when she was started on lisinopril. Patient also reports feeling like 'crab' for about a week and has been very exhausted; she has tried to get a hold of her surveyor mine and has an appointment with Dr. Wellington today in the evening. Reports nausea but did not vomit. Reports epigastric discomfort and bloating for about a month, feeling of fullness after dinner. She denies anxiety, denies recent life stressors. This is the fourth time she has come to the ED since August 15 2016, and says all her problems began since then. Last admission was on September 05 with chest discomfort, ACS was ruled out. Prior to that admission she came to the ED with nausea, vomiting, diarrhea and generalized fatigue/malaise on August 15 and was found to have EKG changes and elevated troponin of 4.15, patient was transferred for cardiac catheterization which was negative and was found to have reduced EF to 45-50%, suggestive of stress cardiomyopathy. On August 20 she came back to the ED with palpitations, claustrophobia/impending doom, nausea and mild chest discomfort, at that time patient had milder elevation of troponin with EKG demonstrating normal sinus rhythm with T-wave inversions in V1-V6 without any new ST segment changes. Today patient has had a negative troponin so far with no EKG changes, NSR, previously noted T wave inversions are not appreciated in today's EKG. no ST segment changes noted. Patient is also concerned about having lyme, reports they live in the [facility]. reports a rash in the flanks and upper thighs about a months ago when all her symptoms started, it was accompanied by hot flashes too, she saw an oracle adf developer for it and was found to have allergies to fish. She does not have menses (s/p hysterectomy). Allergies/Medications Allergies: Coded Allergies: Fish Containing Products (Severe, HIVES AND THROAT SWELLING 08/15/16) Penicillins (Intermediate, HIVES 08/15/16) codeine (Intermediate, HIVES 08/15/16) shellfish derived (HIVES AND THROAT SWELLING 08/15/16) Home Med list Acetaminophen 500 MG TABLET 2 TAB PO PRN PAIN (Reported) Aspirin (Aspirin*) 81 MG TAB.CHEW 1 TAB PO DAILY HEART (Reported) Carvedilol (Coreg) 3.125 MG TABLET 1 TAB PO BID CHEST PAIN (Reported) Cholecalciferol (Vitamin D3) (Vitamin D) 1,000 UNIT TABLET 1 TAB PO DAILY Low vit d Check calcium and vitamin d level in 1 month Clobetasol Propionate 0.05 % CREAM..G. 1 RAQUEL TOP BID HANDS (Reported) apply to affected area(s) Epinephrine (Epipen 2-Francisco) 0.3 MG/0.3 ML AUTO.INJCT 0.3 MG IM AD PRN ALLERGIC REACTION (Reported) Isosorbide Mononitrate (Isosorbide Mononitrate ER) 30 MG TAB.ER.24H 1 TAB PO DAILY HEART (Reported) Lisinopril 2.5 MG TABLET 1 TAB PO DAILY PRN QHS PRN HTN (Reported) Lisinopril (Prinivil) 5 MG TABLET 1 TAB PO DAILY HTN Omeprazole 40 MG CAPSULE.DR 1 CAP PO DAILY GI (Reported) Past History Travel History Traveled to [place] past 21 day No Medical History Neurological: NONE EENT: NONE Cardiovascular: hypertension, NSTEMI, Takotsubo cardiomyopathy Respiratory: NONE Gastrointestinal: GERD Hepatic: NONE Renal: NONE Musculoskeletal: disk herniation Psychiatric: NONE Endocrine: NONE Blood Disorders: beta thalassemia Cancer(s): NONE 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 FHx: diabetes mellitus FATHER FH: CAD (coronary artery disease) FHx: diabetes mellitus SISTER FH: thyroid cancer Psychosocial History Who Do You Live With? spouse Services at Home: None Primary Language: Amharic Smoking Status: Former Smoker (quit august 15, 2016) ETOH Use: denies use Illicit Drug Use: denies illicit drug use Living Will? no Functional Ability ADLs Independent: dressing, eating, toileting, bathing. Ambulation: independent (he) IADLs Independent: shopping, housework, finances, food prep, telephone, transportation , medication admin. Review of Systems Review of Systems Constitutional: Reports: chills, malaise. Denies: diaphoresis, fever, unexplained weight loss. EENTM: Reports: blurred vision (not new onthe left eye). Cardiovascular: Denies: chest pain, edema, palpitations, syncope. Respiratory: Denies: cough, short of breath, sputum production. GI: Reports: changes in stool (constipated). Denies: abdominal pain. Genitourinary: Reports: frequency, hesitation, urgency. Denies: discharge, dysuria, nocturia, pain. Musculoskeletal: Reports: no symptoms. Skin: Reports: no symptoms. Neurological/Psychological: Reports: no symptoms. Hematologic/Endocrine: Reports: no symptoms. Exam & Diagnostic Data Last 24 Hrs of Vital Signs/I&O Vital Signs Date Time Temp Pulse Resp B/P Pulse O2 O2 Flow FiO2 Ox Delivery Rate 09/15 1629 97.9 53 18 127/82 95 Room Air / 1045 52 142/76 09/15 1045 52 142/76 / 0817 97.0 52 18 142/76 95 Room Air / 0615 60 18 138/86 96 Room Air 09/15 0506 96.0 51 18 142/82 04/03 0503 96.0 51 18 142/82 96 Room Air 04/03 0256 97.1 58 20 156/78 96 Room Air 04/ 0235 95 04/03 0204 62 20 159/89 94 Room Air 04/ 0144 71 18 143/74 94 Room Air 04/03 0135 172/84 04/ 0130 199/91 04/ 0129 97.5 70 18 187/79 97 Room Air Intake & Output 09/15 1600 04 0800 04 0000 Intake Total 240 Output Total 300 300 Balance -60 -300 Intake, Oral 240 Output, Urine 300 300 Patient 81.647 kg Weight Physical Exam General Appearance Alert, Oriented X3, Cooperative, No Acute Distress Skin No Rashes, No Significant Lesion HEENT Atraumatic, EOMI Neck Supple Cardiovascular Regular Rate, Normal S1, Normal S2, No Murmurs, S4 heard Lungs Clear to Auscultation, Normal Air Movement Abdomen Soft, No Tenderness Extremities Normal Pulses Vascular Pulses Symmetrical Last 24 Hrs of Labs/Hu: Laboratory Tests 09/15/16 1300: Troponin I < 0.01 09/15/16 0650: Anion Gap 6, Estimated GFR > 60, BUN/Creatinine Ratio 31.7 H, Troponin I < 0.01 09/15/16 0650: Sodium Cancelled, Potassium Cancelled, Chloride Cancelled, Carbon Dioxide Cancelled, Anion Gap Cancelled, BUN Cancelled, Creatinine Cancelled, BUN/ Creatinine Ratio Cancelled, CBC w Diff NO MAN DIFF REQ, RBC 5.16, MCV 67.4 L, MCH 21.2 L, RDW 15.2 H, MPV 10.1, Gran % 45.6, Lymphocytes % 41.4, Monocytes % 6.9, Eosinophils % 5.6 H, Basophils % 0.5, Absolute Granulocytes 3.8, Absolute Lymphocytes 3.5 H, Absolute Monocytes 0.6, Absolute Eosinophils 0.5, Absolute Basophils 0, PUBS MCHC 31.5 L 09/15/16 0134: Anion Gap 7, Estimated GFR > 60, BUN/Creatinine Ratio 30.0 H, Glucose 105 H, Hemoglobin A1c 5.9 H, Calcium 10.5 H, Total Bilirubin 0.5, AST 25, ALT 51, Alkaline Phosphatase 64, Troponin I < 0.01, Total Protein 7.1, Albumin 4.3, Globulin 2.8, Albumin/Globulin Ratio 1.5, PT 10.6, INR 1.01, APTT 27, D-Dimer < 200, CBC w Diff MAN DIFF ORDERED, RBC 5.35, MCV 66.3 L, MCH 21.2 L, RDW 15.7 H, MPV 9.2, Gran % 51.8, Lymphocytes % 35.9, Monocytes % 6.5, Eosinophils % 4.9, Basophils % 0.9, Absolute Granulocytes 5.1, Segmented Neutrophils 46, Absolute Lymphocytes 3.5 H, Lymphocytes 44, Monocytes 7, Absolute Monocytes 0.6, Eosinophils 3, Absolute Eosinophils 0.5, Absolute Basophils 0.1, Platelet Estimate ADEQUATE, Polychromasia 1+, Hypochromic-Microcytic 1+, Poikilocytosis 2 +, Basophilic Stippling 1+, Anisocytosis 3+, Microcytic Cells 3+, Ovalocytes 1+, Stomatocytes FEW, Elliptocytes 1+, PUBS MCHC 32.0 L, Fld Total RBCs Counted 100 , Lyme Disease Antibody 1.19 *H 09/15/16 0121: Lyme Ab (Western Blot) Pending, Lyme IgG 18 kDa Band Pending, Lyme IgG 23 kDa Band Pending, Lyme IgG 28 kDa Band Pending, Lyme IgG 30 kDa Band Pending, Lyme IgG 39 kDa Band Pending, Lyme IgG 41 kDa Band Pending, Lyme IgG 45 kDa Band Pending, Lyme IgG 58 kDa Band Pending, Lyme IgG 66 kDa Band Pending, Lyme IgG 93 kDa Band Pending, Lyme IgM (Western Blot) Pending, Lyme IgM 23 kDa Band Pending, Lyme IgM 39 kDa Band Pending, Lyme IgM 41 kDa Band Pending Assessment/Plan Assessment: Patient is a 48-year-old lady with PMH of beta thalassemia, recently diagnosed HTN and stress cardiomyopathy in 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 Patient also reports vague chest discomfort, with no substernal chest tightness, palpitations or diaphoresis. She is admitted to telemetry for for observation due to hypertensive urgency and to rule out ACS. Problem list and plan: Chest pain Vague discomfort in the chest and the left armpit, with no substernal chest tightness, diaphoresis and dizziness. troponin negative on admission. Recently performed echocardiogram in 08/20/2016 shows normal size left ventricle , hypokinetic septum with normal left ventricular ejection fraction estimated at 55-60%. * Admit patient to telemetry floor * Vitals every shift, I & Os. * Serial troponin and EKG * Cardiology consultation in a.m. Hypertension urgency Despite antihypertensive medication, pheochromocytoma workup was negative during the previous admission. * Increase lisinopril to 10 mg daily * Cardiology consultation in a.m. Mild pain pathway Heart healthy diet DVT prophylaxis * Subcutaneous heparin Full code As Ranked By This Provider Problem List: 1. Hypertension 2. Chest pain 3. Acute electrocardiogram changes 4. Allergic reaction Core Measures/Miscellaneous Acute Coronary Syndrome ACS Diagnosis: No Cerebrovascular Accident CVA/TIA Diagnosis: No Congestive Heart Failure CHF Diagnosis: No Venous Thromboembolism VTE Risk Factors: Acute medical illness, Age > 40 [facility] d/t: No contraindications No VTE Pharm Prophylaxis d/t: No contraindications VTE Diagnosis: No VTE Type: NONE VTE Confirmed by (Test): NONE Severe Sepsis Severe Sepsis Present: No Septic Shock Septic Shock Present: No Miscellaneous Documentation Attending Case Discussed With: PURA MANE MD Primary Care Physician: PURA MANE MD Patient sees these Specialists Dr. Wellington Level of Patient Care: Telemetry ZAIDA DUDLEY 09/15/16 0713: Resident Review Statement Resident Statement: examined this patient, discussed with internet marketing intern, agreed with internet marketing intern, discussed with family, reviewed EMR data (avail), reviewed images, amended to note Other Findings: Patient is a 56 year old lady with past medical history of beta thalassemia, recently diagnosed HTN and stress cardiomyopathy in early August 2016, who has come to the ED due to elevated blood pressure. Patient reports that early last night she started to feel buzzing in the ears, checked the BP and was elevated to 180/82, she also found it hard to breath deeply for a short while, she took an extra dose of lisinopril 2.5 mg at 6:30 pm. At [address] Mane as the BP went further up to 190/90, she took another lisinopril 2.5 mg per his suggestion and also took aspirin. Despite that her blood pressure still elevated at the time of presentation to the ED it was 187/79. Also she reports chest pain radiating to left arm. Physical examination, lab and imaging as above Assessment: -Chest pain: The patient previous history of chest pain with recent cardiac catheterization that was within normal, that could be also slightly secondary to stress induce. Patient will need to be ruled out for ACS. -Hypertension urgency: Despite she is on antihypertensive medication, her blood pressure still elevated in the SBP 180s, also or the pheochromocytoma workup that was done and the previous admission came back negative. Patient will need adjustment with her antihypertensive medication. Plan: -Admit patient to telemetry floor -Vitals every shift, I & Os. -Serial troponin and EKG -We'll increase his lisinopril to 10 mg daily for more continue the rest of her antihypertensive medication. -Cardiology consultation in a.m. -No need for echocardiogram for now. -Pain pathway -Heart healthy diet -DVT prophylaxis: Subcutaneous heparin -Full code WILDER JUNG,LUKE 09/15/16 1421: Exam & Diagnostic Data Last 24 Hrs of Vital Signs/I&O Vital Signs Date Time Temp Pulse Resp B/P Pulse O2 O2 Flow FiO2 Ox Delivery Rate 09/15 1045 52 142/76 04/ 1045 52 142/76 04/ 0817 97.0 52 18 142/76 95 Room Air 04/03 0615 60 18 138/86 96 Room Air 04/03 0506 96.0 51 18 142/82 04/03 0503 96.0 51 18 142/82 96 Room Air 04/03 0256 97.1 58 20 156/78 96 Room Air 04/03 0235 95 04/03 0204 62 20 159/89 94 Room Air 04/03 0144 71 18 143/74 94 Room Air 04/03 0135 172/84 04/03 0130 199/91 04/03 0129 97.5 70 18 187/79 97 Room Air Intake & Output 04/ 1600 04/03 0800 04/03 0000 Intake Total Output Total 300 Balance -300 Output, Urine 300 Patient 81.647 kg Weight
[2016-09-15 06:15] VITALS: BP 138/86
[2016-09-15 08:17] VITALS: BP 142/76
[2016-09-15 08:31] LABS: ABSOLUTE BASOPHIL COUNT 0 /CUMM (0.0-0.2); ABSOLUTE EOSINOPHIL COUNT 0.5 /CUMM (0.0-0.7); ABSOLUTE GRANULOCYTE CT 3.8 /CUMM (1.4-6.5); ABSOLUTE LYMPH COUNT 3.5 /CUMM (1.2-3.4); ABSOLUTE MONOCYTE COUNT 0.6 /CUMM (0.10-0.60); BASOPHIL % 0.5 % (0.0-2.0); EOSINOPHIL % 5.6 % (0-5); GRANULOCYTE % 45.6 % (42.2-75.2); HEMATOCRIT 34.8 % (37-47); MEAN CORPUSCULAR HGB 21.2 PG (27.0-31.0); MEAN CORPUSCULAR HGB CONC 31.5 G/DL (33.0-37.0); MEAN CORPUSCULAR VOLUME 67.4 FL (81.0-99.0); MEAN PLATELET VOLUME 10.1 FL (7.4-10.4); PLATELET COUNT 198 /CUMM (130-400); RBC DISTRIBUTION WIDTH 15.2 % (11.5-14.5); RED BLOOD CELL CT 5.16 /CUMM (4.20-5.40); WHITE BLOOD CELL COUNT 8.4 /CUMM (4.8-10.8)
--- NOTE | 2016-09-15 10:56 | PN- Att Addend ---
Attending Addendum Attending Brief Note 56-year-old white female has been dealing with chest pain and hypertension has had several tests and blood tests and follows with the pharmacy innovation assistant. Again the patient called her blood pressure was very high and took extra lisinopril. But still comes to the emergency room and her pressure was elevated. Amlodipine was given to the patient, this morning her blood pressure is a little better. We'll have cardiology reevaluate the patient. Monitoring troponins and serial EKGs Vital Signs Date Time Temp Pulse Resp B/P Pulse O2 O2 Flow FiO2 Ox Delivery Rate 09/15 1045 52 142/76 / 1045 52 142/76 04/ 0817 97.0 52 18 142/76 95 Room Air 04/03 0615 60 18 138/86 96 Room Air 04/03 0506 96.0 51 18 142/82 04/03 0503 96.0 51 18 142/82 96 Room Air 04/03 0256 97.1 58 20 156/78 96 Room Air 04/03 0235 95 04/03 0204 62 20 159/89 94 Room Air 04/03 0144 71 18 143/74 94 Room Air 04/03 0135 172/84 04/03 0130 199/91 04/03 0129 97.5 70 18 187/79 97 Room Air Laboratory Tests 09/15/16 0650: Anion Gap 6, Estimated GFR > 60, BUN/Creatinine Ratio 31.7 H, Troponin I < 0.01 09/15/16 0650: Sodium Cancelled, Potassium Cancelled, Chloride Cancelled, Carbon Dioxide Cancelled, Anion Gap Cancelled, BUN Cancelled, Creatinine Cancelled, BUN/ Creatinine Ratio Cancelled, CBC w Diff NO MAN DIFF REQ, RBC 5.16, MCV 67.4 L, MCH 21.2 L, RDW 15.2 H, MPV 10.1, Gran % 45.6, Lymphocytes % 41.4, Monocytes % 6.9, Eosinophils % 5.6 H, Basophils % 0.5, Absolute Granulocytes 3.8, Absolute Lymphocytes 3.5 H, Absolute Monocytes 0.6, Absolute Eosinophils 0.5, Absolute Basophils 0, PUBS MCHC 31.5 L 09/15/16 0134: Anion Gap 7, Estimated GFR > 60, BUN/Creatinine Ratio 30.0 H, Glucose 105 H, Hemoglobin A1c 5.9 H, Calcium 10.5 H, Total Bilirubin 0.5, AST 25, ALT 51, Alkaline Phosphatase 64, Troponin I < 0.01, Total Protein 7.1, Albumin 4.3, Globulin 2.8, Albumin/Globulin Ratio 1.5, PT 10.6, INR 1.01, APTT 27, D-Dimer < 200, CBC w Diff MAN DIFF ORDERED, RBC 5.35, MCV 66.3 L, MCH 21.2 L, RDW 15.7 H, MPV 9.2, Gran % 51.8, Lymphocytes % 35.9, Monocytes % 6.5, Eosinophils % 4.9, Basophils % 0.9, Absolute Granulocytes 5.1, Segmented Neutrophils 46, Absolute Lymphocytes 3.5 H, Lymphocytes 44, Monocytes 7, Absolute Monocytes 0.6, Eosinophils 3, Absolute Eosinophils 0.5, Absolute Basophils 0.1, Platelet Estimate ADEQUATE, Polychromasia 1+, Hypochromic-Microcytic 1+, Poikilocytosis 2 +, Basophilic Stippling 1+, Anisocytosis 3+, Microcytic Cells 3+, Ovalocytes 1+, Stomatocytes FEW, Elliptocytes 1+, PUBS MCHC 32.0 L, Fld Total RBCs Counted 100 , Lyme Disease Antibody Pending Orders Procedure Date/time Status Heart Healthy Diet 09/15 B Active TROPONIN LEVEL 09/15 1300 Active EKG 09/15 1300 Active Teach/Educate 09/15 0736 Active Pain Treatment and Response 09/15 0736 Active Nutritional Intake, Monitor 09/15 0736 Active Isolation 09/15 0736 Active Patient Care Conference 09/15 0736 Active Activity/Ambulation 09/15 0736 Active TROPONIN LEVEL 09/15 0700 Complete EKG 09/15 0700 Active BASIC ELECTROLYTES PLUS BUN&CR 09/15 0650 Complete CBC WITHOUT DIFFERENTIAL 09/15 0600 Complete Add-on Test (ER Only) 09/15 0447 Active Pathway - chart 09/15 0356 Active House Staff 09/15 0356 Active Code Status 09/15 0356 Active Patient Data 09/15 0320 Active Saline Lock 09/[address] in observation 09/15 0310 Active Misc Message 09/15 0310 Active ED Holding Orders 09/15 0310 Active Vital Signs 09/15 0310 Active Code Status 09/15 0310 Complete Intake & Output 09/15 0239 Active LYME TITRE 09/15 0134 Active GLYCOSYLATED HGB 09/15 0134 Complete TROPONIN LEVEL 09/15 0121 Complete PARTIAL THROMBOPLASTIN TIME 09/15 0121 Complete PROTHROMBIN TIME 09/15 0121 Complete D-DIMER 09/15 0121 Complete COMPREHENSIVE METABOLIC PANEL 09/15 0121 Complete CBC WITHOUT DIFFERENTIAL 09/15 0121 Complete EKG 09/15 0117 Active House Staff 09/15 UNK Active VTE Mechanical Prophylaxis 09/15 UNK Active Vital Signs 09/15 UNK Complete Intake & Output 09/15 UNK Complete
--- NOTE | 2016-09-15 14:24 | Event Note ---
Event Note Event Note: Patient is admitted as observation for telemety floor.
--- NOTE | 2016-09-15 14:34 | Cons- Cardiology ---
General Information and HPI Consulting Request Date of Consult: 09/15/16 Requested By: PURA HADLEY MD Reason for Consult: chest pain History of Present Illness: The patient is a 56-year-old female who was previously admitted August 15 with takotsubo cardiomyopathy. She presented at that time with chest discomfort, mild ST elevation, and positive troponin. Cardiac catheterization revealed normal coronary arteries with LV ejection fraction of 40 to 45%, and findings suggestive of takotsubo cardiomyopathy. She subsequently has had several recent admissions for chest discomfort, and shortness of breath. She reportedly had a stress test at [facility] which was negative. She presented early this morning with complaint of chest discomfort which she described as a dull substernal pressure radiating to the left axilla. She also noted buzzing in the ears. Her blood pressure was found to be elevated to 180/ 82. She noted difficulty taking deep breaths. She felt as if there was a bubble of air in her chest. She complains of recent exhaustion. No syncope. No orthopnea. No diaphoresis. She has been noted to have a positive Lyme titer. Allergies/Medications Allergies: Coded Allergies: Fish Containing Products (Severe, HIVES AND THROAT SWELLING 08/15/16) Penicillins (Intermediate, HIVES 08/15/16) codeine (Intermediate, HIVES 08/15/16) shellfish derived (HIVES AND THROAT SWELLING 08/15/16) Home Med List: Acetaminophen 500 MG TABLET 2 TAB PO PRN PAIN (Reported) Aspirin (Aspirin*) 81 MG TAB.CHEW 1 TAB PO DAILY HEART (Reported) Carvedilol (Coreg) 3.125 MG TABLET 1 TAB PO BID CHEST PAIN (Reported) Cholecalciferol (Vitamin D3) (Vitamin D) 1,000 UNIT TABLET 1 TAB PO DAILY Low vit d Check calcium and vitamin d level in 1 month Clobetasol Propionate 0.05 % CREAM..G. 1 RAQUEL TOP BID HANDS (Reported) apply to affected area(s) Epinephrine (Epipen 2-Francisco) 0.3 MG/0.3 ML AUTO.INJCT 0.3 MG IM AD PRN ALLERGIC REACTION (Reported) Isosorbide Mononitrate (Isosorbide Mononitrate ER) 30 MG TAB.ER.24H 1 TAB PO DAILY HEART (Reported) Lisinopril 2.5 MG TABLET 1 TAB PO DAILY PRN QHS PRN HTN (Reported) Lisinopril (Prinivil) 5 MG TABLET 1 TAB PO DAILY HTN Omeprazole 40 MG CAPSULE. 1 CAP PO DAILY GI (Reported) Current Medications: Current Medications Sig/Meme Start time Last Medication Dose Route Stop Time Status Admin Acetaminophen 500 MG Q6P PRN 09/15 0400 AC 09/15 PO 1608 Amlodipine Besylate 10 MG DAILY 09/15 1000 CAN PO Aspirin 81 MG DAILY 09/15 1000 AC 09/15 PO 1044 Aspirin 0 .STK-MED ONE 09/15 0134 DC PO Aspirin 325 MG ONCE ONE 09/15 0130 DC 09/15 PO 09/15 0131 0137 Carvedilol 3.125 MG BID 09/15 1000 AC 09/15 PO 1045 Heparin Sodium 5,000 UNIT Q8 09/15 0600 AC 09/15 (Porcine) SC 1500 Ibuprofen 400 MG Q6P PRN 09/15 0400 AC PO Isosorbide 30 MG DAILY 09/15 1000 AC 09/15 Mononitrate PO 1045 Lisinopril 10 MG DAILY 09/16 1000 AC PO Lisinopril 10 MG ONCE ONE 09/15 0500 DC 09/15 PO 09/15 0501 0506 Nitroglycerin 0.4 MG ONCE ONE 09/15 0130 DC 09/15 SL 09/15 0131 0137 Omeprazole 40 MG DAILY AC 09/15 0700 AC 09/15 PO 0707 Oxycodone/ 2 TAB Q6P PRN 09/15 0400 AC Acetaminophen PO Patient Medication 1 UNIT ONE NR 09/15 0730 [facility] ED 09/15 1330 Patient Medication 1 UNIT ONE NR 09/15 0730 [facility] ED 09/15 1330 Patient Medication 1 UNIT ONE NR 09/15 0730 [facility] ED 09/15 1330 Patient Medication 1 UNIT ONE NR 09/15 0730 [facility] ED 09/15 1330 Patient Medication 1 UNIT ONE NR 09/15 0730 [facility] ED 09/15 1330 Review of Systems Review of Systems: No rash. No tremor. No melena. No syncope. All other systems are reviewed and are noted to be negative. 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 FHx: diabetes mellitus FATHER FH: CAD (coronary artery disease) FHx: diabetes mellitus SISTER FH: thyroid cancer Psychosocial History Who Do You Live With? spouse Services at Home: None Primary Language: [place] Smoking Status: Former Smoker (quit august 15, 2016) ETOH Use: denies use Illicit Drug Use: denies illicit drug use Living Will? no Functional Ability ADLs Independent: dressing, eating, toileting, bathing. Ambulation: independent (he) IADLs Independent: shopping, housework, finances, food prep, telephone, transportation , medication admin. Exam & Diagnostic Data Vital Signs and I&O Vital Signs Date Time Temp Pulse Resp B/P Pulse O2 O2 Flow FiO2 Ox Delivery Rate 09/15 1629 97.9 53 18 127/82 95 Room Air 04/ 1045 52 142/76 04/ 1045 52 142/76 04/03 0817 97.0 52 18 142/76 95 Room Air 04/03 0615 60 18 138/86 96 Room Air 04/03 0506 96.0 51 18 142/82 04/03 0503 96.0 51 18 142/82 96 Room Air 04/03 0256 97.1 58 20 156/78 96 Room Air 04/03 0235 95 04/03 0204 62 20 159/89 94 Room Air 04/03 0144 71 18 143/74 94 Room Air 04/03 0135 172/84 04/03 0130 199/91 04/03 0129 97.5 70 18 187/79 97 Room Air Intake & Output 09/15 1600 09/15 0800 04/ 0000 / 1600 09/14 0800 / 0000 Intake Total 240 Output Total 300 300 Balance -60 -300 Intake, Oral 240 Output, Urine 300 300 Patient 180 lb Weight Physical Exam: Gen: The patient is in no acute distress HEENT: Normal nose, ears, and oropharynx. Pupils equal bilaterally. Conjunctiva normal. Neck: Supple with no JVD, no masses, and no thyromegaly Lungs: Clear to auscultation with normal respiratory effort Heart: RRR, S1, S2, no murmurs. No peripheral edema, 2+ pulses in the lower extremities bilaterally Abdomen: Soft, nontender, no masses. No hepatomegaly. No splenomegaly Extremities: No clubbing or cyanosis. Normal muscle strength in the upper and lower extremities Skin: Normal skin turgor with no skin ulcers or lesions noted. Neuro: Cranial nerves intact. Sensation intact Psych: Alert and oriented 3 with appropriate affect Labs/Hu Results: Laboratory Tests 09/15 09/15 09/15 1300 0650 0650 Chemistry Sodium (137 - 145 mmol/L) 140 Cancelled Potassium (3.5 - 5.1 mmol/L) 4.0 Cancelled Chloride (98 - 107 mmol/L) 105 Cancelled Carbon Dioxide (22 - 30 mmol/L) 29 Cancelled Anion Gap (5 - 16) 6 Cancelled BUN (7 - 17 mg/dL) 19 H Cancelled Creatinine (0.5 - 1.0 mg/dL) 0.6 Cancelled Estimated GFR (>60 ml/min) > 60 BUN/Creatinine Ratio (7 - 25 %) 31.7 H Cancelled Troponin I (< 0.11 ng/ml) < 0.01 < 0.01 Hematology CBC w Diff NO MAN DIFF REQ WBC (4.8 - 10.8 /CUMM) 8.4 RBC (4.20 - 5.40 /CUMM) 5.16 Hgb (12.0 - 16.0 G/DL) 11.0 L Hct (37 - 47 %) 34.8 L MCV (81.0 - 99.0 FL) 67.4 L MCH (27.0 - 31.0 PG) 21.2 L RDW (11.5 - 14.5 %) 15.2 H Plt Count (130 - 400 /CUMM) 198 MPV (7.4 - 10.4 FL) 10.1 Gran % (42.2 - 75.2 %) 45.6 Lymphocytes % (20.5 - 51.1 %) 41.4 Monocytes % (1.7 - 9.3 %) 6.9 Eosinophils % (0 - 5 %) 5.6 H Basophils % (0.0 - 2.0 %) 0.5 Absolute Granulocytes (1.4 - 6.5 /CUMM) 3.8 Absolute Lymphocytes (1.2 - 3.4 /CUMM) 3.5 H Absolute Monocytes (0.10 - 0.60 /CUMM) 0.6 Absolute Eosinophils (0.0 - 0.7 /CUMM) 0.5 Absolute Basophils (0.0 - 0.2 /CUMM) 0 PUBS MCHC (33.0 - 37.0 G/DL) 31.5 L 09/15 09/15 0134 0121 Chemistry Sodium (137 - 145 mmol/L) 141 Potassium (3.5 - 5.1 mmol/L) 4.1 Chloride (98 - 107 mmol/L) 106 Carbon Dioxide (22 - 30 mmol/L) 28 Anion Gap (5 - 16) 7 BUN (7 - 17 mg/dL) 21 H Creatinine (0.5 - 1.0 mg/dL) 0.7 Estimated GFR (>60 ml/min) > 60 BUN/Creatinine Ratio (7 - 25 %) 30.0 H Glucose (65 - 99 mg/dL) 105 H Hemoglobin A1c (4.2 - 5.8 %) 5.9 H Calcium (8.4 - 10.2 mg/dL) 10.5 H Total Bilirubin (0.2 - 1.3 mg/dL) 0.5 AST (14 - 36 U/L) 25 ALT (9 - 52 U/L) 51 Alkaline Phosphatase (<127 U/L) 64 Troponin I (< 0.11 ng/ml) < 0.01 Total Protein (6.3 - 8.2 g/dL) 7.1 Albumin (3.5 - 5.0 g/dL) 4.3 Globulin (1.9 - 4.2 gm/dL) 2.8 Albumin/Globulin Ratio (1.1 - 2.2 %) 1.5 Coagulation PT (9.4 - 12.5 SEC) 10.6 INR (0.90 - 1.19) 1.01 APTT (25 - 37 SEC) 27 D-Dimer (70 - 232 ng/ml) < 200 Hematology CBC w Diff MAN DIFF ORDERED WBC (4.8 - 10.8 /CUMM) 9.8 RBC (4.20 - 5.40 /CUMM) 5.35 Hgb (12.0 - 16.0 G/DL) 11.3 L Hct (37 - 47 %) 35.5 L MCV (81.0 - 99.0 FL) 66.3 L MCH (27.0 - 31.0 PG) 21.2 L RDW (11.5 - 14.5 %) 15.7 H Plt Count (130 - 400 /CUMM) 258 MPV (7.4 - 10.4 FL) 9.2 Gran % (42.2 - 75.2 %) 51.8 Lymphocytes % (20.5 - 51.1 %) 35.9 Monocytes % (1.7 - 9.3 %) 6.5 Eosinophils % (0 - 5 %) 4.9 Basophils % (0.0 - 2.0 %) 0.9 Absolute Granulocytes (1.4 - 6.5 /CUMM) 5.1 Segmented Neutrophils (42.2 - 75.2 %) 46 Absolute Lymphocytes (1.2 - 3.4 /CUMM) 3.5 H Lymphocytes (20.5 - 51.1 %) 44 Monocytes (1.7 - 9.3 %) 7 Absolute Monocytes (0.10 - 0.60 /CUMM) 0.6 Eosinophils (0 - 5.0 %) 3 Absolute Eosinophils (0.0 - 0.7 /CUMM) 0.5 Absolute Basophils (0.0 - 0.2 /CUMM) 0.1 Platelet Estimate (ADEQUATE) ADEQUATE Polychromasia 1+ Hypochromic-Microcytic 1+ Poikilocytosis 2+ Basophilic Stippling 1+ Anisocytosis 3+ Microcytic Cells 3+ Ovalocytes 1+ Stomatocytes FEW Elliptocytes 1+ PUBS MCHC (33.0 - 37.0 G/DL) 32.0 L Other Body Source Fld Total RBCs Counted (%) 100 Serology Lyme Disease Antibody (RATIO) 1.19 *H Lyme Ab (Western Blot) Pending Lyme IgG 18 kDa Band Pending Lyme IgG 23 kDa Band Pending Lyme IgG 28 kDa Band Pending Lyme IgG 30 kDa Band Pending Lyme IgG 39 kDa Band Pending Lyme IgG 41 kDa Band Pending Lyme IgG 45 kDa Band Pending Lyme IgG 58 kDa Band Pending Lyme IgG 66 kDa Band Pending Lyme IgG 93 kDa Band Pending Lyme IgM (Western Blot) Pending Lyme IgM 23 kDa Band Pending Lyme IgM 39 kDa Band Pending Lyme IgM 41 kDa Band Pending Diagnostic Data EKG Results EKG tracing is independently reviewed, and reveals no ischemic changes. CXR Results Negative Other Results echocardiogram August 21, 2016: 1. Miniimal to mild arotic sclerosis is present with no valvular stenosis or insufficiency 2. The mitral valve appears normal. Redundant chords are present with chordal JOYCELYN. There is no significant resting outflow tract obstruction. Minimal mitral insufficiency is present. 3. There is no significant pericardial fluid present. 4. The left ventricualr chamber size is normal with mild hypokinesia of the mid to distal septum and an ejection fraction of greater than 55%. 5. Minimal to mild tricuspid and pulmonic insufficiency are present wtih no evidence of pulmonary hypertension. 6. Mild left ventricular diastolic dysfunction is present. 7. A false tendon is present at the LV apex. Assessment/Plan Assessment/Plan Assessment: 1. Recent admission with takotsubo cardiomyopathy 2. No obstructive coronary artery disease 3. Chest discomfort and elevated blood pressure, improved 4. Positive Lyme titer Plan: * Monitor in telemetry * Check serial troponins to rule out myocardial infarction * Continue current hypertension medications. Pressure was elevated on admission and is now under control. Consult Acknowledgment - Thank you for your consult request.
--- NOTE | 2016-09-15 14:34 | Patient Discharge Instructions ---
Discharge Instructions General Discharge Information You were seen/treated for: Atypical chest pain -suspected ACS Special Instructions: Please follow up with in a week Please follow up with in a week Diet Continue normal diet: Yes Recommended Diet: Heart Healthy Activity Full Activity/No Limits: Yes Activity Self Limited: Yes Acute Coronary Syndrome Inclusion Criteria At DC or during hospital stay patient has or had the following: ACS DIAGNOSIS No Discharge Core Measures Meds if any: Prescribed or Continued at Discharge Meds if any: NOT Prescribed or Continued at Discharge Congestive Heart Failure Inclusion Criteria At DC or during hospital stay patient has or had the following: CHF DIAGNOSIS No Discharge Core Measures Meds if any: Prescribed or Continued at Discharge Meds if any: NOT Prescribed or Continued at Discharge Cerebrovascular accident Inclusion Criteria At DC or during hospital stay patient has or had the following: CVA/TIA Diagnosis No Discharge Core Measures Meds if any: Prescribed or Continued at Discharge Meds if any: NOT Prescribed or Continued at Discharge Venous thromboembolism Inclusion Criteria VTE Diagnosis No VTE Type NONE VTE Confirmed by (Test) NONE Discharge Core Measures - Per Current guidelines, there needs to be overlap - treatment for the first 5 days of Warfarin therapy. - If discharged on Warfarin prior to 5 days of - overlap therapy, the patient will need to be - assessed for post discharge needs including - *Post discharge parental anticoagulation - *Warfarin and/or parental anticoagulation education - *Follow up date to check INR post discharge At least 5 days overlap therapy as Inpatient No Meds if any: Prescribed or Continued at Discharge Note: Overlap Therapy is Warfarin and Anticoagulant Meds if any: NOT Prescribed or Continued at Discharge
[2016-09-15 16:29] VITALS: BP 127/82
[2016-09-15 23:31] VITALS: BP 130/80
--- NOTE | 2016-09-16 07:30 | PN- Housestaff ---
Subjective Follow-up For: Chest pain Tele-Events Since Last Visit: Sinus Bradycardia, Sinus rhythm At 12:54am 44-42bpm At 2:04am 41-39bpm Subjective: I saw and examined the patient today morning she is alert and oriented X 3. Review of Systems Constitutional: Reports: see HPI. Comments: ROS negative except the above. Objective Last 24 Hrs of Vital Signs/I&O Vital Signs Date Time Temp Pulse Resp B/P Pulse O2 O2 Flow FiO2 Ox Delivery Rate 09/16 0000 97 Room Air 09/15 2331 97.3 53 18 130/80 93 Room Air 09/15 2127 67 118/62 09/15 1629 97.9 53 18 127/82 95 Room Air 09/15 1045 52 142/76 09/15 1045 52 142/76 09/15 0817 97.0 52 18 142/76 95 Room Air Intake & Output 09/16 0800 09/16 0000 09/15 1600 Intake Total 480 460 240 Output Total 300 Balance 480 460 -60 Intake, IV 10 Intake, Oral 480 450 240 Number 0 Bowel Movements Output, Urine 300 Physical Exam General Appearance: Alert, Oriented X3, Cooperative Skin: No Rashes, No Breakdown HEENT: Atraumatic, PERRLA, EOMI Neck: Supple Cardiovascular: Normal S1, Normal S2, No Murmurs Lungs: Clear to Auscultation, Normal Air Movement Abdomen: Normal Bowel Sounds, Soft, No Tenderness Neurological: Normal Speech, Strength at 5/5 X4 Ext, Normal Tone, Sensation Intact Extremities: No Clubbing, No Cyanosis, No Edema Current Medications: Current Medications Sig/Meme Start time Last Medication Dose Route Stop Time Status Admin Acetaminophen 500 MG Q6P PRN 09/15 0400 AC 09/15 PO 1608 Aspirin 81 MG DAILY 09/15 1000 AC 09/15 PO 1044 Carvedilol 3.125 MG BID 09/15 1000 AC 09/15 PO 2127 Heparin Sodium 5,000 UNIT Q8 09/15 0600 AC 09/16 (Porcine) SC 0619 Ibuprofen 400 MG Q6P PRN 09/15 0400 AC PO Isosorbide 30 MG DAILY 09/15 1000 AC 09/15 Mononitrate PO 1045 Lisinopril 10 MG DAILY 09/16 1000 AC PO Omeprazole 40 MG DAILY AC 09/15 0700 AC 09/16 PO 0619 Oxycodone/ 2 TAB Q6P PRN 09/15 0400 AC Acetaminophen PO Patient Medication 1 UNIT ONE NR 09/15 0730 DC Teaching ED 09/15 1330 Patient Medication 1 UNIT ONE NR 09/15 0730 [facility] ED 09/15 1330 Patient Medication 1 UNIT ONE NR 09/15 0730 [facility] ED 09/15 1330 Patient Medication 1 UNIT ONE NR 09/15 0730 DC [facility] ED 09/15 1330 Patient Medication 1 UNIT ONE NR 09/15 0730 [facility] ED 09/15 1330 Last 24 Hrs of Lab/Hu Results Last 24 Hrs of Labs/Mics: Laboratory Tests 09/16/16 0620: Sodium Pending, Potassium Pending, Chloride Pending, Carbon Dioxide Pending, Anion Gap Pending, BUN Pending, Creatinine Pending, BUN/Creatinine Ratio Pending 09/15/16 1300: Troponin I < 0.01 Lines/Diet/Fluids Lines: peripheral lines Assessment/Plan Assessment: Patient is a 48-year-old lady with PMH of beta thalassemia, recently diagnosed HTN and stress cardiomyopathy in 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 Patient also reports vague chest discomfort, with no substernal chest tightness, palpitations or diaphoresis. She is admitted to telemetry for for observation due to hypertensive urgency and to rule out ACS. Problem list and plan: Chest pain History of Takotsubo and non obstructive coronary artery disease. Ruled out for ACS. Need outpatient follow up with in a week. Hypertension urgency Despite antihypertensive medication, pheochromocytoma workup was negative during the previous admission. Her lisinopril dose increased to 10mg and her carvedilol decreased to 3.125 twice a day. Postive lyme titer - Stays in [facility]. Started on Doxycycline 100mg BID for total 21days. Differential of IgM and IgG is pending. Need to follow up as outpatient. Mild pain pathway Heart healthy diet DVT prophylaxis * Subcutaneous heparin Full code Problem List: 1. Chest pain 2. Hypertension Pain Ratin Pain Location: n/a Pain Goal: Pain 4 or less Pain Plan: tylenol prn Tomorrow's Labs & Rationales: none
[2016-09-16 08:00] VITALS: BP 128/72
[2016-09-16] MEDS ORDERED: DOXYCYCLINE HY100 M2 PO ×2 (09:54→10:02)
[2016-09-16 09:57] VITALS: BP 128/72
[2016-09-16] MEDS ORDERED: LISINOPRIL10 M1 PO (12:04)
--- NOTE | 2016-09-16 12:05 | PN- Cardiology ---
Subjective Subjective: The patient reports that she is feeling well. No chest pain. No palpitations. No shortness of breath. No diaphoresis. She was noted to be bradycardic overnight with heart rates in the 40s. Objective Vital Signs and I&Os Vital Signs Date Time Temp Pulse Resp B/P Pulse O2 O2 Flow FiO2 Ox Delivery Rate 09/16 956 55 128/72 09/16 0957 55 128/72 09/16 0957 55 128/72 09/16 0800 98.3 55 20 128/72 96 Room Air 09/16 0000 97 Room Air 09/15 2331 97.3 53 18 130/80 93 Room Air 09/15 2127 67 118/62 09/15 1629 97.9 53 18 127/82 95 Room Air Intake & Output 09/16 1600 09/16 0809/16 0000 09/15 1600 09/15 0800 09/15 0000 Intake Total 480 460 240 Output Total 300 300 Balance 480 460 -60 -300 Intake, IV 10 Intake, Oral 480 450 240 Number 0 Bowel Movements Output, Urine 300 300 Patient 180 lb Weight Physical Exam: Gen: The patient is in no acute distress HEENT: Normal nose, ears, and oropharynx. Pupils equal bilaterally. Conjunctiva normal. Neck: Supple with no JVD, no masses, and no thyromegaly Lungs: Clear to auscultation with normal respiratory effort Heart: RRR, S1, S2, no murmurs. No peripheral edema, 2+ pulses in the lower extremities bilaterally Abdomen: Soft, nontender, no masses. No hepatomegaly. No splenomegaly Extremities: No clubbing or cyanosis. Normal muscle strength in the upper and lower extremities Skin: Normal skin turgor with no skin ulcers or lesions noted. Current Medications: Current Medications Sig/Meme Start time Last Medication Dose Route Stop Time Status Admin Acetaminophen 500 MG Q6P PRN 09/15 0400 AC 09/15 PO 1608 Aspirin 81 MG DAILY 09/15 1000 AC 09/16 PO 0956 Carvedilol 3.125 MG BID 09/15 1000 AC 09/16 PO 0957 Heparin Sodium 5,000 UNIT Q8 09/15 0600 AC 09/16 (Porcine) SC 0619 Ibuprofen 400 MG Q6P PRN 09/15 0400 AC PO Isosorbide 30 MG DAILY 09/15 1000 AC 09/16 Mononitrate PO 0957 Lisinopril 10 MG DAILY 09/16 1000 AC 09/16 PO 0957 Omeprazole 40 MG DAILY AC 09/15 0700 AC 09/16 PO 0619 Oxycodone/ 2 TAB Q6P PRN 09/15 0400 AC Acetaminophen PO Patient Medication 1 UNIT ONE NR 09/15 0630 [facility] ED 09/15 1330 Patient Medication 1 UNIT ONE NR 09/15 0730 [facility] ED 09/15 1330 Patient Medication 1 UNIT ONE NR 09/15 0630 [facility] ED 09/15 1330 Patient Medication 1 UNIT ONE NR 09/15 0730 [facility] ED 09/15 1330 Patient Medication 1 UNIT ONE NR 09/15 0730 [facility] ED 09/15 1330 Results Last 48 Hrs of Labs/Mics: Laboratory Tests 09/16/16 0620: Anion Gap 10, Estimated GFR > 60, BUN/Creatinine Ratio 28.6 H 09/15/16 1300: Troponin I < 0.01 09/15/16 0650: Anion Gap 6, Estimated GFR > 60, BUN/Creatinine Ratio 31.7 H, Troponin I < 0.01 09/15/16 0650: Sodium Cancelled, Potassium Cancelled, Chloride Cancelled, Carbon Dioxide Cancelled, Anion Gap Cancelled, BUN Cancelled, Creatinine Cancelled, BUN/ Creatinine Ratio Cancelled, CBC w Diff NO MAN DIFF REQ, RBC 5.16, MCV 67.4 L, MCH 21.2 L, RDW 15.2 H, MPV 10.1, Gran % 45.6, Lymphocytes % 41.4, Monocytes % 6.9, Eosinophils % 5.6 H, Basophils % 0.5, Absolute Granulocytes 3.8, Absolute Lymphocytes 3.5 H, Absolute Monocytes 0.6, Absolute Eosinophils 0.5, Absolute Basophils 0, PUBS MCHC 31.5 L 09/15/16 0134: Anion Gap 7, Estimated GFR > 60, BUN/Creatinine Ratio 30.0 H, Glucose 105 H, Hemoglobin A1c 5.9 H, Calcium 10.5 H, Total Bilirubin 0.5, AST 25, ALT 51, Alkaline Phosphatase 64, Troponin I < 0.01, Total Protein 7.1, Albumin 4.3, Globulin 2.8, Albumin/Globulin Ratio 1.5, PT 10.6, INR 1.01, APTT 27, D-Dimer < 200, CBC w Diff MAN DIFF ORDERED, RBC 5.35, MCV 66.3 L, MCH 21.2 L, RDW 15.7 H, MPV 9.2, Gran % 51.8, Lymphocytes % 35.9, Monocytes % 6.5, Eosinophils % 4.9, Basophils % 0.9, Absolute Granulocytes 5.1, Segmented Neutrophils 46, Absolute Lymphocytes 3.5 H, Lymphocytes 44, Monocytes 7, Absolute Monocytes 0.6, Eosinophils 3, Absolute Eosinophils 0.5, Absolute Basophils 0.1, Platelet Estimate ADEQUATE, Polychromasia 1+, Hypochromic-Microcytic 1+, Poikilocytosis 2 +, Basophilic Stippling 1+, Anisocytosis 3+, Microcytic Cells 3+, Ovalocytes 1+, Stomatocytes FEW, Elliptocytes 1+, PUBS MCHC 32.0 L, Fld Total RBCs Counted 100 , Lyme Disease Antibody 1.19 *H 09/15/16 0121: Lyme Ab (Western Blot) Pending, Lyme IgG 18 kDa Band Pending, Lyme IgG 23 kDa Band Pending, Lyme IgG 28 kDa Band Pending, Lyme IgG 30 kDa Band Pending, Lyme IgG 39 kDa Band Pending, Lyme IgG 41 kDa Band Pending, Lyme IgG 45 kDa Band Pending, Lyme IgG 58 kDa Band Pending, Lyme IgG 66 kDa Band Pending, Lyme IgG 93 kDa Band Pending, Lyme IgM (Western Blot) Pending, Lyme IgM 23 kDa Band Pending, Lyme IgM 39 kDa Band Pending, Lyme IgM 41 kDa Band Pending Assessment/Plan Assessment/Plan Assessment: 1. Recent admission with takotsubo cardiomyopathy 2. No obstructive coronary artery disease 3. Chest discomfort and elevated blood pressure, improved 4. Positive Lyme titer Plan: * Given the bradycardia overnight, I recommend decrease carvedilol to one half of a 3.125 mg tablet twice a day * Would continue 10 mg per day of lisinopril. * Follow up with Dr. Wellington in one week. Continue telemetry? No
--- NOTE | 2016-09-16 13:37 | PN- Att Addend ---
Attending Addendum Attending Brief Note Patient feeling a little better but still little anxious. Monitor the pulse slightly on the low side. Other vital signs are stable to monitor changes on physical troponins were negative was seen by cardiology, medications were adjusted her blood pressure and pulse. Patient will be discharged to continue workup as an outpatient. To to the elevated Lyme titer, a prescription for doxycycline was given to the patient today see the CMR. Intake & Output 09/16 0809/16 0000 09/15 1600 09/15 0809/15 0000 Intake Total 480 460 240 Output Total 300 300 Balance 480 460 -60 -300 Intake, IV 10 Intake, Oral 480 450 240 Number 0 Bowel Movements Output, Urine 300 300 Patient 180 lb Weight Laboratory Tests 09/16/16 0620: Anion Gap 10, Estimated GFR > 60, BUN/Creatinine Ratio 28.6 H 09/15/16 1300: Troponin I < 0.01 09/15/16 0650: Anion Gap 6, Estimated GFR > 60, BUN/Creatinine Ratio 31.7 H, Troponin I < 0.01 09/15/16 0650: Sodium Cancelled, Potassium Cancelled, Chloride Cancelled, Carbon Dioxide Cancelled, Anion Gap Cancelled, BUN Cancelled, Creatinine Cancelled, BUN/ Creatinine Ratio Cancelled, CBC w Diff NO MAN DIFF REQ, RBC 5.16, MCV 67.4 L, MCH 21.2 L, RDW 15.2 H, MPV 10.1, Gran % 45.6, Lymphocytes % 41.4, Monocytes % 6.9, Eosinophils % 5.6 H, Basophils % 0.5, Absolute Granulocytes 3.8, Absolute Lymphocytes 3.5 H, Absolute Monocytes 0.6, Absolute Eosinophils 0.5, Absolute Basophils 0, PUBS MCHC 31.5 L 09/15/16 0134: Anion Gap 7, Estimated GFR > 60, BUN/Creatinine Ratio 30.0 H, Glucose 105 H, Hemoglobin A1c 5.9 H, Calcium 10.5 H, Total Bilirubin 0.5, AST 25, ALT 51, Alkaline Phosphatase 64, Troponin I < 0.01, Total Protein 7.1, Albumin 4.3, Globulin 2.8, Albumin/Globulin Ratio 1.5, PT 10.6, INR 1.01, APTT 27, D-Dimer < 200, CBC w Diff MAN DIFF ORDERED, RBC 5.35, MCV 66.3 L, MCH 21.2 L, RDW 15.7 H, MPV 9.2, Gran % 51.8, Lymphocytes % 35.9, Monocytes % 6.5, Eosinophils % 4.9, Basophils % 0.9, Absolute Granulocytes 5.1, Segmented Neutrophils 46, Absolute Lymphocytes 3.5 H, Lymphocytes 44, Monocytes 7, Absolute Monocytes 0.6, Eosinophils 3, Absolute Eosinophils 0.5, Absolute Basophils 0.1, Platelet Estimate ADEQUATE, Polychromasia 1+, Hypochromic-Microcytic 1+, Poikilocytosis 2 +, Basophilic Stippling 1+, Anisocytosis 3+, Microcytic Cells 3+, Ovalocytes 1+, Stomatocytes FEW, Elliptocytes 1+, PUBS MCHC 32.0 L, Fld Total RBCs Counted 100 , Lyme Disease Antibody 1.19 *H 09/15/16 0121: Lyme Ab (Western Blot) Pending, Lyme IgG 18 kDa Band Pending, Lyme IgG 23 kDa Band Pending, Lyme IgG 28 kDa Band Pending, Lyme IgG 30 kDa Band Pending, Lyme IgG 39 kDa Band Pending, Lyme IgG 41 kDa Band Pending, Lyme IgG 45 kDa Band Pending, Lyme IgG 58 kDa Band Pending, Lyme IgG 66 kDa Band Pending, Lyme IgG 93 kDa Band Pending, Lyme IgM (Western Blot) Pending, Lyme IgM 23 kDa Band Pending, Lyme IgM 39 kDa Band Pending, Lyme IgM 41 kDa Band Pending
== END 2016-09-16 12:15 ==
LOC: ERH 01:15 → ERHI 03:10 → 1NO 03:10 → ENPENDDIS 03:10 → 1NO 06:16
PROVIDERS: Internal Medicine Hematology & Oncology; Pediatrics; ADMIT Internal Medicine
DX: R07.9 Chest pain, unspecified (principal); D56.1 Beta thalassemia; I11.9 Hypertensive heart disease without heart failure; I25.2 Old myocardial infarction; K21.9 Gastro-esophageal reflux disease without esophagitis
CPT/HCPCS: 86618; 36415; 82436; 93005; 93010; 96372; G0378; J1644; J3490